=== PATIENT | female | born 1965 | race Caucasian/White ===

== ENCOUNTER → 2018-01-02 12:49 | Outpatient (POV) | payer BC, SELFPAY | PROVIDERS: Family Provider Internal Medicine Adolescent Medicine; PCP Family Medicine; Visit Provider Nurse Practitioner Acute Care | DX: Z00.00 Encounter for general adult medical examination without abnormal findings (principal) ==

== ENCOUNTER → 2018-09-01 14:38 | Outpatient (CLI) | payer BC, SELFPAY ==
[2018-09-01 14:47] LABS: Adenovirus F 40/41, stool Not Detected (NotDetected); Astrovirus Not Detected (NotDetected); Campylobacter Not Detected (NotDetected); Clostridium Difficile A/B, PCR Not Detected (NotDetected); Cryptosporidium Not Detected (NotDetected); Cyclospora Cayetanesis Not Detected (NotDetected); Entamoeba histolytica Not Detected (NotDetected); Enteroaggregative E coli Not Detected (NotDetected); Enteropathogenic E coli Not Detected (NotDetected); Enterotoxigenic E coli Not Detected (NotDetected); Giardia lamblia Not Detected (NotDetected); Norovirus Not Detected (NotDetected); Plesimonas Shigalloides, PCR Not Detected (NotDetected); Rotavirus A Not Detected (NotDetected); Salmonella, PCR Not Detected (NotDetected); Sapovirus Not Detected (NotDetected); Shiga-like toxin E coli Not Detected (NotDetected); Shigella Enterovasive E coli Not Detected (NotDetected); Vibrio Cholerae Not Detected (NotDetected); Vibrio, PCR Not Detected (NotDetected); Yersinia Entercolitica, PCR Not Detected (NotDetected)
== END ==
PROVIDERS: PCP Family Medicine; Visit Provider Nurse Practitioner Acute Care
DX: R19.7 Diarrhea, unspecified (principal)
CPT/HCPCS: 87507

== ENCOUNTER → 2019-07-12 13:39 | Outpatient (CLI) | payer BC, SELFPAY ==
[2019-07-12 15:26] VITALS: BMI 27.6
== END ==
PROVIDERS: PCP Family Medicine; Visit Provider Family Medicine
DX: Z71.3 Dietary counseling and surveillance (principal)
CPT/HCPCS: 97802

== ENCOUNTER 2022-02-12 19:47 | Emergency (ER) | payer BC, SELFPAY ==
[2022-02-12] VITALS (9 sets, daily range): BP systolic 135–182; BP diastolic 75–92; PULSE 82–97; RESP 17–20; TEMP 36.9; O2SAT 94–99; BMI 28.0
--- NOTE | 2022-02-12 19:45 | ECG_ITS ---
APPROVED REPORT Exam: Resting ECG HR:100 bpm ECG Measurements Heart Rate 100 AXES MN 136 P 69 QRSd 89 QRS 39 QT 337 T 34 QTc 394 Conclusion SINUS TACHYCARDIA NONSPECIFIC ST & T-WAVE ABNORMALITY ABNORMAL RHYTHM ECG UNCONFIRMED REPORT Electronically signed by : Gurjit Elizalde MD 02/13/2022 08:15:45
--- NOTE | 2022-02-12 19:52 | XR_ITS ---
PROCEDURE INFORMATION: Exam: XR Chest Exam date and time: 02/12/2022 7:56 PM Age: 56 years old Clinical indication: Sternal or substernal pain; Prior surgery; Surgery date: 6+ months; Surgery type: Cardiac stents; Additional info: Cp TECHNIQUE: Imaging protocol: XR of the chest. Views: 1 view. COMPARISON: ABDPELWO CT abdomen pelvis wo con 08/14/2018 3:48 AM FINDINGS: Lungs: Unremarkable. No consolidation. Pleural spaces: Unremarkable. No pleural effusion. No pneumothorax. Heart/Mediastinum: Unremarkable. No cardiomegaly. Bones/joints: Unremarkable. IMPRESSION: No acute findings.
[2022-02-12 20:02] LABS: Basophils # 0.1 K/mm3 (0-0.2); Eosinophils # 0.2 K/mm3 (0.0-0.4); Eosinophils % 2.9 % (0.1-12.0); Hematocrit 40.7 % (37.0-47.0); Hemoglobin 13.3 g/dL (12.2-16.2); Lymphocytes # 2.3 K/mm3 (0.7-4.5); Lymphocytes % 39.6 % (10-50); Mean Corpuscular HGB Conc 32.6 g/dL (31.8-35.4); Mean Corpuscular Hemoglobin 30.7 pg (27.0-31.2); Mean Corpuscular Volume 94.2 fl (81-99); Mean Platelet Volume 8.5 fl (7.4-10.4); Monocytes # 0.4 K/mm3 (0.1-1.0); Monocytes % 6.7 % (1.7-9.3); Neutrophils % 49.9 % (37.0-80.0); Platelet Count 189 K/mm3 (142-424); Red Blood Count 4.31 M/mm3 (4.20-5.40); Red Cell Distribution Width 13.6 % (11.5-17.5); White Blood Count 5.9 K/mm3 (4.8-10.8)
[2022-02-12 20:09] LABS: Alanine Aminotransferase 169 U/L (12-78); Albumin/Globulin Ratio 1.6 (1.1-1.8); Alkaline Phosphatase 92 U/L (38-126); Anion Gap 8.9 mEq/L (5-15); Aspartate Amino Transferase 96 U/L (14-36); Bilirubin,Total 0.4 mg/dl (0.2-1.3); Blood Urea Nitrogen 16 mg/dl (7-17); Calcium 8.4 mg/dl (8.4-10.2); Carbon Dioxide 26 mmol/L (22.0-30.0); Chloride 109 mmol/L (98-107); Creatinine Clearance Estimated 116 mL/min (50-200); Estimated Glomerular Filt Rate 103 ml/min (>60); GFR (African American) 124 ML/MIN (>60); Globulin 2.5 g/dL (1.3-3.2); Glucose 188 mg/dl (74-100); Potassium 3.9 mmoL/L (3.5-5.1); Sodium 140 mmol/L (136-145); Total Protein,Serum 6.5 g/dl (6.3-8.2)
[2022-02-12 20:15] LABS: C-Reactive Protein 0.9 mg/L (0-4)
[2022-02-12 20:25] LABS: Troponin I < 0.01 ng/ml (0.00-0.034)
[2022-02-12 20:29] LABS: Procalcitonin 0.055 ng/mL (0.0-2.0)
[2022-02-12 20:34] LABS: Erythrocyte Sedimentation Rate 14 mm/hr (0-30)
--- NOTE | 2022-02-12 21:02 | HMH.EDCP ---
ED Disposition Clinical Impression: Chest pain Qualifiers: Chest pain type: precordial pain Qualified Code(s): R07.2 - Precordial pain Disposition: Home, Self-Care Condition on Discharge: Good Instructions: DI for Chest Pain Additional Instructions: pt will need to see card and recheck if sx persist Prescriptions: Isosorbide Mononitrate [Imdur 30mg ER tablet] 30 mg PO DAILY #30 tab Transmission Status: Pending to [facility] Referrals: Leif Faulkner [Primary Care Provider] - - Critical Care Critical Care Time: No Attestation: On 02/12/22, the high probability of a clinically significant, sudden or life threatening deterioration of the following system(s) required my full and direct attention, intervention and personal management. The time I documented below is in addition to time spent performing reported procedures but includes the following listed in this critical care notation. Medical Decision Making - Medical Records Medical records reviewed: Yes: I reviewed the patient's medical records. - Neftaly Inquiry Pt receiving controlled substance: No Vital Signs: 02/12/22 19:47 02/12/22 20:00 02/12/22 20:30 Temperature 98.4 F Temperature Source Oral Pulse Rate 87 94 H Pulse Rate [Left Radial] 97 H Respiratory Rate 18 20 17 Blood Pressure 176/84 H 156/82 H Blood Pressure [Right Arm] 171/92 H Blood Pressure Mean 114 106 Blood Pressure Mean [Right Arm] 118 02 Sat by Pulse Oximetry 99 97 97 Oxygen Delivery Method Nasal Cannula Oxygen Flow Rate (LPM) 2 02/12/22 21:00 02/12/22 21:30 02/12/22 22:00 Temperature Temperature Source Pulse Rate 92 H 84 83 Pulse Rate [Left Radial] Respiratory Rate Blood Pressure 182/85 H 154/86 H 144/75 H Blood Pressure [Right Arm] Blood Pressure Mean 117 108 98 Blood Pressure Mean [Right Arm] 02 Sat by Pulse Oximetry 97 94 L 95 Oxygen Delivery Method Oxygen Flow Rate (LPM) 02/12/22 22:30 02/12/22 23:00 02/12/22 23:30 Temperature Temperature Source Pulse Rate 82 85 93 H Pulse Rate [Left Radial] Respiratory Rate Blood Pressure 136/79 135/76 138/78 Blood Pressure [Right Arm] Blood Pressure Mean 93 97 91 Blood Pressure Mean [Right Arm] 02 Sat by Pulse Oximetry 96 96 96 Oxygen Delivery Method Oxygen Flow Rate (LPM) - Lab Data Lab results reviewed: Yes: I reviewed the patient's lab results. Lab Results 02/12/22 19:45: WBC 5.9, RBC 4.31, Hgb 13.3, Hct 40.7, MCV 94.2, MCH 30.7, MCHC 32.6, RDW 13.6, Plt Count 189, MPV 8.5, Neut % (Auto) 49.9, Lymph % (Auto) 39.6, Walton % (Auto) 6.7, Eos % (Auto) 2.9, Baso % (Auto) 1.0, Neut # (Auto) 3.0, Lymph # (Auto) 2.3, Walton # (Auto) 0.4, Eos # (Auto) 0.2, Baso # (Auto) 0.1, ESR 14 02/12/22 19:45: Sodium 140, Potassium 3.9, Chloride 109 H, Carbon Dioxide 26, Anion Gap 8.9, BUN 16, Creatinine 0.60, Estimated Creat Clear 116, Estimated GFR 103, Est GFR ( Amer) 124, Glucose 188 H, Calcium 8.4, Total Bilirubin 0.4, AST 96 H, ALT 169 H, Alkaline Phosphatase 92, Troponin I < 0.01, C-Reactive Protein 0.9, Total Protein 6.5, Albumin 4.0, Globulin 2.5, Albumin/Globulin Ratio 1.6 02/12/22 19:45: Procalcitonin 0.055 02/12/22 19:45: TSH 0.36 L, Thyroxine (T4) 13.5 H 02/12/22 22:56: Troponin I 0.03 Result diagrams: 02/12/22 19:45 02/12/22 19:45 Orders (Tests/Meds): ED MEDICATIONS Discontinued Medications Generic Name Dose Route Start Last Admin Trade Name Freq PRN Reason Stop Dose Admin Aspirin 324 mg 02/12/22 19:59 02/12/22 20:03 Aspirin 81mg Chewable Tablet PO 02/12/22 20:00 324 mg ONCE ONE Administration Nitroglycerin 1 gm 02/12/22 20:00 02/12/22 20:03 Nitroglycerin 1 Gm Ointment TD 02/12/22 20:01 1 gm ONCE ONE Administration ORDERS Category Date Time Status Troponin I Q3H Lab 02/13/22 02:00 Ordered - Radiology Data #1 Image(s): Chest Image Reviewed: Yes I have reviewed radiologist's interpretat
[2022-02-12 21:04] LABS: T4 (Thyroxine) 13.5 ug/dl (5.53-11.0)
[2022-02-12 21:18] LABS: Thyroid Stimulating Hormone 0.36 uIU/mL (0.465-4.68)
[2022-02-12 23:33] LABS: Troponin I 0.03 ng/ml (0.00-0.034)
--- NOTE | 2022-02-13 00:26 | ECG_ITS ---
APPROVED REPORT Exam: Resting ECG HR:76 bpm ECG Measurements Heart Rate 76 AXES DE 164 P 69 QRSd 91 QRS 28 QT 371 T 20 QTc 401 Conclusion SINUS RHYTHM NORMAL ECG UNCONFIRMED REPORT Electronically signed by : Gurjit Elizalde MD 02/13/2022 08:15:10
[2022-02-13 00:51] VITALS: BP 148/84; PULSE 89; RESP 16; TEMP 36.9; O2SAT 97
== END 2022-02-13 01:03 | disposition home or self-care (01) ==
PROVIDERS: Emergency Provider Emergency Medicine; PCP Family Medicine
DX: R07.2 Precordial pain (principal); I25.10 Atherosclerotic heart disease of native coronary artery without angina pectoris; E11.9 Type 2 diabetes mellitus without complications; K21.9 Gastro-esophageal reflux disease without esophagitis; I10 Essential (primary) hypertension; E03.9 Hypothyroidism, unspecified; Z87.891 Personal history of nicotine dependence; Z79.899 Other long term (current) drug therapy
CPT/HCPCS: 36415; 71045; 80053; 84145; 84436; 84443; 84484; 85025; 85651; 86140; 93005; 99283

== ENCOUNTER → 2022-02-19 07:27 | Outpatient (CLI) | payer BC, SELFPAY ==
--- NOTE | 2022-02-19 | CA_ITS ---
APPROVED REPORT Exam: Exercise Treadmill Technologist: Carlene Gibson, Ht: 5 ft 3 in Wt: 159 lbs BSA: 1.75 m2 HR: 81 bpm BP: 157/79 mmHg Rhythm: NSR, SLIGHT INFERIOR ST SEGMENT ABNORMALITIES Medical History Medications: Isosorbide,,,,, Aspirin,,,,, Metoprolol Tartrate,,,,, Atorvastatin,,,,, Lansoprazole,,,,, DicyCLOMINE,,,,, Sitagliptin,,,,, MetoclopAMIDE,,,,, MonONITRATE,,,,, LisinI,,,,, Allergies: No known drug allergies Stress Test Details Test: Brennan, Exercise stress testing was performed using a Brennan protocol., Exercise stress testing was performed using a modified Brennan protocol. HR Resting HR: 92 bpm Max Heart Rate (APMHR): 162 bpm Max HR Achieved: 147 bpm Target HR (85% APMHR): 138 bpm % of APMHR: 91 Recovery HR: 99 bpm BP Resting BP: 156/82 mmHg Max BP: 180/70 mmHg Recovery BP: 178.0/77.0 mmHg ECG Resting ECG: NSR, SLIGHT INFERIOR ST SEGMENT ABNORMALITIES Clinical Reason for Termination: Dyspnea Exercise duration: 07:01 min Highest Stage Achieved: Exercise capacity: 10.1 METs Stress ECG Conclusion PT WALKED 7 MIN. 10.1 METS. PT HAD NO CP. 1.[address] HORIZONTIC SEGMENT DEPRESSION INFERIORLY/LATERALLY THAT RESOLVED SLOWLY IN RECOVERY. ABNORMAL EKG. MAX SQ=106. % OF JB=158. MAX BP= 180/70. TEST STOPPED DUE TO=SOA. Electronically signed by : Morteza Verma MD 02/19/2022 16:22:06
--- NOTE | 2022-02-19 07:27 | NM_ITS ---
APPROVED REPORT Exam: Nuclear Stress Test Indication: CAD, 5 STENTS, HTN, D.M., HYPERLIPIDEMIA, FM HX, ANGINA, C.P. Patient Location: Outpatient Stress Tech: Carlene Gibson OR Tech:Elina HendersonAPPLE RT (R)(N)(M) Ht: 5 ft 3 in Wt: 155 lbs Bra Size: 38CC HR: 81 bpm BP: 157/79 mmHg BSA: 1.74 m2 BMI: 27.4 History: CAD, 5 STENTS, HTN, D.M., HYPERLIPIDEMIA, FM HX, ANGINA, C.P Procedure: Patient exercised on Brennan protocol 7:01 minutes and sec, resting heart rate 81 bpm, resting blood pressure 157/79 mmHg, with exercise maximum heart rate achived was 142 bpm which is 106 % of the maximum predicted heart rate and blood pressure was 170/65 mmHg. Test was stopped due to FATIGUE. Patient denied any complaint of chest pain. Patient has good exercise capacity, achieved 10.1 METs of workload on treadmill, the blood pressure response to exercise was Adequate. Electrocardiogram Resting electrocardiogram shows sinus rhythm, with exercise there is less than 1.[address] segment depression noted from the baseline EKG. The EKG portion of the exercise Myoview is positive for ischemia. Cardiac Stress and Resting SPECT Images: Cardiac Stress and Resting SPECT images were obtained using technetium 99m Myoview 30.7 mCi stress and 11.00 mCi at rest. Gated SPECT for analysis of segmental wall motion and calculation of the ejection fraction also done. Cardiac stress and resting SPECT images show reversible ischemia involving the anterior apical wall, computer derived ejection fraction is 52% with no regional wall motion abnormality, right ventricle is normal size and contractility. Conclusion: 1. The EKG portion of the exercise Myoview is positive for ischemia, patient has good exercise capacity achieved 10.1 METs of workload on treadmill, the blood pressure response to exercise was adequate, there was no exercise-induced chest discomfort. 2. Scintigraphic evidence of reversible ischemia involving the anterior apical wall, computer derived ejection fraction is 52% with no regional wall motion abnormality, right ventricle is normal size and contractility. 3. Abnormal exercise Myoview study. Electronically signed by : Morteza Verma MD 02/19/2022 16:25:12
--- NOTE | 2022-02-19 10:49 | CA_ITS ---
APPROVED REPORT EXAM: Comprehensive 2D, Doppler, and color-flow Echocardiogram Meter Changes Records Clerk: Treva Pacheco RT(R) Ht: 5 ft 3 in Wt: 154lbs BSA: 1.73 BP: 187/86 mmHg Indications: CP, ex smoker, HTN, DM, SOB, hyperlipidemia, Abn EKG, pre op for shoulder surgery, CAD, GERD 2D Dimensions LVOT 1.97 cm (M/F) 1.5-2.5 LVEF (Malin's) 66.10 % F: 54 - 74 LV Volume 74.30 mL F: 46 - 106 LV Volume Index 42.94 mL/m2 F: 29 - 61 LA Volume 28.00 mL LA Volume Index 16.18 mL/m2 (M/F) 16-34 M-Mode Dimensions RVDd 2.32 cm (0.9-2.6) LA Diam 3.05 cm (1.9-4.0) LVDd 4.11 cm (3.5-5.7) Ao Diam 2.52 cm (2.0-3.7) LVDs 3.14 cm (3.5-5.7) IVSd 0.75 cm (0.6-1.1) PWd 0.68 cm (0.6-1.1) EF (Teich) 47.70% FS 23.60% EDV (Teich) 74.70 mL ESV (Teich) 39.10 mL LV Diastology E Decel Time 190.00 (160-240 msec) E/A Ratio 0.8 MED E' 9.40 (< 7 cm/sec) E'/MED E' Ratio 6.98 (>14) LAT E' 9.60 (<10 cm/sec) E/LAT E' Ratio 6.83 (>14) Mitral Valve MV E Max Grey. 66.00 (40-130 cm/s) MV A Velocity 88.00 (40-130 cm/s) E/A Ratio 0.75 MV Decel. Time 190.00 (160-240 ms) MV PHT 56.00 ms Left Ventricle Left atrium is mildly enlarged, left ventricle is normal size, mild concentric left ventricular hypertrophy, estimated ejection fraction 55% with no regional wall motion abnormality, Doppler evidence of impaired LV relaxation seen. Right Ventricle Right atrium and right ventricle are normal size and contractility. Aortic Valve Aortic valve is minimally thickened and fibrosed, there is no aortic stenosis or aortic insufficiency. Mitral Valve Mitral valve grossly normal, there is trace mitral regurgitation. Tricuspid Valve Tricuspid grossly normal, there is trace tricuspid regurgitation, tricuspid regurgitation jet velocity is inadequate for calculation of the right ventricular systolic pressure. Pulmonic Valve Pulmonic valve is poorly visualized. Great Vessels Aortic root is normal size. Inferior vena cava is poorly visualized. Pericardium No significant pericardial effusion. Conclusion 1. Mildly enlarged left atrium, normal left ventricular size, mild concentric left ventricular hypertrophy, estimated ejection fraction 55% with no regional wall motion abnormality. Doppler evidence of impaired LV relaxation seen. 2. Trace mitral and tricuspid regurgitation. 3. No significant pericardial effusion. 4. Inferior vena cava is poorly visualized. Electronically signed by : Morteza Verma MD 02/19/2022 17:07:30
== END ==
PROVIDERS: PCP Family Medicine; Visit Provider Nurse Practitioner Family
DX: Z01.810 Encounter for preprocedural cardiovascular examination (principal); R07.9 Chest pain, unspecified; I20.9 Angina pectoris, unspecified; I10 Essential (primary) hypertension; E78.5 Hyperlipidemia, unspecified; R94.31 Abnormal electrocardiogram [ECG] [EKG]; Z95.5 Presence of coronary angioplasty implant and graft
CPT/HCPCS: 78452; 93017; 93306; A9502

== ENCOUNTER → 2022-02-22 09:18 | Outpatient (CLI) | payer BC, SELFPAY | PROVIDERS: PCP Family Medicine; Visit Provider Internal Medicine | DX: Z01.810 Encounter for preprocedural cardiovascular examination (principal); Z11.52 Encounter for screening for COVID-19; I20.9 Angina pectoris, unspecified; I10 Essential (primary) hypertension; E78.5 Hyperlipidemia, unspecified; R94.30 Abnormal result of cardiovascular function study, unspecified; R94.31 Abnormal electrocardiogram [ECG] [EKG]; Z95.5 Presence of coronary angioplasty implant and graft | CPT/HCPCS: C9803; U0003; U0005 ==

== ENCOUNTER 2022-02-23 14:48 | Inpatient (IN) | payer BC, SELFPAY ==
[2022-02-23] VITALS (29 sets, daily range): BP systolic 108–200; BP diastolic 59–123; PULSE 67–92; RESP 16–21; TEMP 36.7–36.8; O2SAT 92–100; BMI 28.0; BMI 28.9
--- NOTE | 2022-02-23 | IR_ITS ---
APPROVED REPORT Patient Location: Outpatient Assembly Machine Feeder: APPLE Palmer RT (R) PROCEDURES Left heart catheterization Left ventriculogram Selective coronary angiogram Drug-eluting stent deployment to the ostial left main artery Angioplasty to the mid dominant circumflex artery INDICATION High risk abnormal Myoview, Coronary artery disease, Angina pectoris, Informed consent was obtained prior to the procedure. COMPLICATIONS None Estimated Blood Loss: Less than 10 mls TECHNIQUE One percent lidocaine used to anesthetize the right anterior aspect of the wrist. The right radial artery was accessed via the Seldinger technique. A 6 [place] sheath was placed in the right radial artery. 2.5 mg of verapamil, 800 mcg of nitroglycerin, 1mg Lidocaine and 5000 U Heparin were given through the arterial sheath. The papa catheter was also used to perform left heart catheterization, left ventriculogram and selective coronary angiogram. At the end the diagnostic angiogram I broke scrub and went out and discussed the case with the patient's . I believe based on patient's initial syntax score that stenting was a reasonable option however I also offered the patient bypass surgery. After his discussion with the patient's it was decided to proceed with stenting if I felt patient's anatomy was amenable. Because of this I reentered the room prescribed and started the procedure. Therapeutic heparin was administered giving a therapeutic ACT and a JL 3 guide catheter was placed in the left main artery followed by a Choice PT extra-support wire being placed on the circumflex artery. A 3.5 x 8 mm Xience stent was deployed in the ostial left main artery at 20 elsy reducing the stenosis and allowing deep seating of the guide catheter. Wire was placed into the circumflex artery however primary stenting could not make the tortuosity and then calcification in the distal left main artery and circumflex artery. The guide liner was introduced and still the guide liner would not make the bend. A 3 mm x 15 mm balloon was deployed in the mid circumflex artery and used as an anchor to advance the guide liner however the guide liner still would not make the tortuosity. Repeat angiography demonstrated LEONA-3 flow with patency of the left main artery and dominant circumflex artery. Additional wires were placed into the LAD however it was decided to abandon the procedure and refer patient for bypass surgery. Patient had not received any antiplatelet agents and had persistent LEONA-3 flow down all vessels. It was felt that the most appropriate revascularization modality at this point would be bypass surgery. The apparatus was removed the sheath was removed good hemostasis was achieved using TR banding patient was transferred the postop already in stable condition ANGIOGRAPHIC RESULTS The left main artery Had an ostial 70 to 80% stenosis with a distal calcified 60% stenosis The left anterior descending artery Has proximal 30% stenosis with a mid vessel stent which is widely patent with minimal in-stent restenosis. The proximal portion of the distal LAD then has a concentric 80 to 90% stenosis. A large first diagonal artery has a stent in the proximal segment which is widely patent with minimal in-stent restenosis. Distal to the stent is a concentric 60% stenosis The circumflex artery Is a large dominant vessel and has 40% stenosis in the proximal first obtuse marginal artery with a 90% concentric stenosis in the mid circumflex artery proximal to 3 obtuse marginal arteries. The right coronary artery Vestigial with an ostial 80% stenosis The ROBERTO ventriculogram reveals Normal slightly hyperdynamic at 70% The left arnold
[2022-02-23 12:02] LABS: CATHL Activated Clotting Time 373 SEC (74-125)
[2022-02-23 12:03] LABS: CATHL Activated Clotting Time > 400 SEC (74-125)
--- NOTE | 2022-02-23 13:11 | SUR.PHASEII ---
Spoke with Lillie from for transfer of patient. Stated she had given pt information to bed coordinator and will possible have a bed tonight or tomorrow. Patient and family updated on POC.
--- NOTE | 2022-02-23 13:12 | SUR.PHASEII ---
Nitro gtt increased to 20mcg per Dr ponce
--- NOTE | 2022-02-23 13:59 | SUR.PHASEII ---
Nitro gtt increased to 30mcg
[2022-02-23 14:09] LABS: INR 1.01 (0.9-1.1); Prothrombin Time 11.4 seconds (10.1-12.5)
[2022-02-23 14:14] LABS: Activated Partial Thrombo Time 178.2 seconds (22.8-30.6)
--- NOTE | 2022-02-23 14:58 | P.CONPHA_ITS ---
[facility] Pharmacy VTE Monitoring - Patient Demographics Admission date: 02/23/22 Report Date: 02/23/22 Time: 14:58 Allergies/Adverse Reactions: Patient Allergies No Known Allergies Allergy (Verified 02/22/22 08:39) Height: 1.6 m Weight: 71.668 kg - VTE Risk Labs: VTE Related Lab Results PT 11.4 seconds (10.1-12.5) 02/23/22 13:30 INR 1.01 (0.9-1.1) 02/23/22 13:30 APTT 178.2 seconds (22.8-30.6) H* 02/23/22 13:30 - Prophylaxis VTE Prophylaxis Ordered?: Yes Types of VTE Prophylaxis: TEDS Knee High, Pharmacological Location of Applied Device: Bilateral Lower Extremeties Pharmacologic Type: Heparin
[2022-02-23 15:22] LABS: Coronavirus 19, PCR Not Detected (NotDetected); Influenza A, PCR Not Detected (NotDetected); Influenza B, PCR Not Detected (NotDetected)
--- NOTE | 2022-02-23 15:38 | HMH.PNCARD ---
Subjective Date: 02/23/22 Time: 15:38 Principal diagnosis: CAD Interval history: 56-year-old white female was brought in for an outpatient left heart catheterization today due to abnormal stress test which was performed as a preop for shoulder surgery. The left heart cath revealed evidence of three-vessel disease for which CABG recommended. She was started on IV heparin and IV nitro and admitted waiting for transfer to . Hopefully this will happen tonight or tomorrow. ANGIOGRAPHIC RESULTS The left main artery Had an ostial 70 to 80% stenosis with a distal calcified 60% stenosis The left anterior descending artery Has proximal 30% stenosis with a mid vessel stent which is widely patent with minimal in-stent restenosis. The proximal portion of the distal LAD then has a concentric 80 to 90% stenosis. A large first diagonal artery has a stent in the proximal segment which is widely patent with minimal in-stent restenosis. Distal to the stent is a concentric 60% stenosis The circumflex artery Is a large dominant vessel and has 40% stenosis in the proximal first obtuse marginal artery with a 90% concentric stenosis in the mid circumflex artery proximal to 3 obtuse marginal arteries. The right coronary artery Vestigial with an ostial 80% stenosis The ROBERTO ventriculogram reveals Normal slightly hyperdynamic at 70% The left ventricular end-diastolic pressure 20 mmHg IMPRESSION Severe coronary artery disease as described above Successful revascularization of the ostial left main artery with persistent disease in the distal left main artery first diagonal artery, LAD, first obtuse marginal artery, and mid dominant circumflex artery Slightly hyperdynamic ejection fraction Mild elevated LVEDP PLAN 1. Patient be started on a heparin drip as well as the nitro drip for blood pressure control 2. Efforts are being made to transfer patient to [facility] for four-vessel bypass surgery. It appears the diagonal artery LAD first OM and terminal OM are good candidates for bypass surgery 3. LDL less than 55 to be achieved with high intensity statin 4. Aspirin 81 mg daily Electronically signed by : Esvin Goyal MD 02/23/2022 13:28:22 Exam Vital signs and Labs for Last 24 Hours: Pulse Resp BP Pulse Ox 77 18 117/61 95 02/23/22 15:00 02/23/22 15:00 02/23/22 15:00 02/23/22 15:00 Laboratory Results - last 24 hr 02/23/22 10:52: Activated Clotting Time > 400 H* 04/12/22 11:20: Activated Clotting Time 373 H* 02/23/22 13:30: PT 11.4, INR 1.01, APTT 178.2 H* I & O for Last 24 hours: Intake & Output 02/21/22 02/22/22 02/23/22 02/24/22 11:59 11:59 11:59 11:59 Weight 158 lb - *Routine Respiratory Exam Present: CTA bilaterally - *Routine Cardiovascular Exam Present: RRR Progress Note: A&P (1) Coronary artery disease Status: Chronic (2) Encounter for pre-operative cardiovascular clearance Status: Acute (3) HLD (hyperlipidemia) Status: Chronic (4) HTN (hypertension) Status: Chronic (5) History of coronary artery stent placement Status: Chronic Assessment and Plan for All Diagnoses:: 1. Admit to Dr. Maxwell service while awaiting transfer to the [facility] for CABG surgery. 2. IV heparin and IV nitroglycerin drips along with home medications including aspirin 81 mg, atorvastatin 80 mg daily, lisinopril and metoprolol.
--- NOTE | 2022-02-23 17:46 | HMH.HPDC ---
General - General Admission date:: 02/23/22 Discharge date: 02/23/22 *Admission Date: 02/23/22 *Chief complaint: Shortness of breath *History of present illness: 56-year-old white female was brought in for an outpatient left heart catheterization today due to abnormal stress test which was performed as a preop for shoulder surgery. The left heart cath revealed evidence of three-vessel disease for which CABG recommended. She was started on IV heparin and IV nitro and admitted waiting for transfer to (Per Gail JENKINS). [facility] History I have reviewed the patient's past medical history: Yes Medical History: Reports:: Coronary Artery Disease, Diabetes Mellitus Type 2, Gastroesophageal Reflux Disease(GERD), Hyperlipidemia, Hypertension, Kidney Stones Denies:: Cancer, Diabetes Mellitus Type 1, Internal Pacemaker, Lung Disease, MRSA, Seizures *Have you ever received a pneumonia vaccine?: No *Have you received a flu vaccine this season?: No Other Medical History: Reports: Hypothyroidism Other Surgeries: Yes: Coronary Stent. No: Pacemaker Amputation: No Fractures: No - *Social History Last grade of school completed: High school graduate Smoking Status: Former smoker Alcohol Intake: never *Occupational Status:: employed *Travel in the last 8 weeks: None Family Hx:: Other (NA) Review of Systems - Review of Systems Review of systems:: pertinent systems reviewed and negative unless documented below - Constitutional Denies body ache(s), Denies excessive sweating, Denies fatigue - Eyes Denies blurry vision, Denies double vision - ENT Denies abnormal hearing, Denies mouth lesions - *Cardiovascular Reports shortness of breath, Reports shortness of breath with activity, Denies chest pain, Denies chest pain at rest - *Respiratory Reports shortness of breath, Reports shortness of breath with activity, Denies chest congestion, Denies cough - *Gastrointestinal Denies abdominal pain, Denies coffee ground vomit - *Musculoskeletal Denies abnormal walking, Denies back pain, Denies muscle weakness - Integumentary/Breasts Denies bleeding lesions, Denies yellowing of the skin - *Neurologic Denies abnormal walking, Denies confusion, Denies dizziness - Psychiatric Denies lack of enjoyment, Denies anxiety - Endocrine Reports cold intolerance, Reports increased thirst - Hematologic/Lymphatic Denies easy bleeding, Denies enlarged lymph nodes - Allergic/Immunologic Denies throat swelling, Denies wheezing Exam Vital signs and Labs for Last 24 Hours: Temp Pulse Resp BP Pulse Ox 98.2 F 77 18 117/61 95 02/23/22 16:00 02/23/22 15:00 02/23/22 15:00 02/23/22 15:00 02/23/22 15:00 Laboratory Results - last 24 hr 02/23/22 10:52: Activated Clotting Time > 400 H* 02/23/22 11:20: Activated Clotting Time 373 H* 02/23/22 13:30: PT 11.4, INR 1.01, APTT 178.2 H* 02/23/22 15:15: SARS-CoV-2 (PCR) Not detected, Influenza A Untype (PCR) Not detected, Influenza Type B (PCR) Not detected I & O for Last 24 hours: Intake & Output 02/20/22 02/21/22 02/22/22 02/23/22 23:59 23:59 23:59 23:59 Weight 163 lb 4 oz - Constitutional no acute distress - *Routine HEENT Exam Head: Present: normocephalic Eye: Present: EOMI ENT: Present: mucous membranes moist - *Routine Neck Exam Present: supple, trachea midline. Absent: tracheal deviation - *Routine Respiratory Exam Present: CTA bilaterally. Absent: accessory muscle use - *Routine Cardiovascular Exam Present: RRR - *Routine Abdominal Exam Present: soft, normoactive bowel sounds. Absent: tenderness, firm - *Routine Rectal Exam Rectal:: deferred - *Routine Genitalia Exam Genitalia:: deferred - *Routine Extremities Exam Present: full ROM, pulses intact. Absent: cyanosis, clubbing, edema, calf tenderness - *Routine Skin Exam Present: intact, dry, warm. Absent: cyanosis, erythema - *Routine Neurological Exam Present: alert, oriented X3.
[2022-02-23 18:49] LABS: Activated Partial Thrombo Time 56.1 seconds (22.8-30.6); INR 0.97 (0.9-1.1)
--- NOTE | 2022-02-23 19:43 | PC.NURSE ---
Nightwatch consulted on last PTT. No changes to heparin gtt. Pharmacy will put order for PTT in 6HRs.
[2022-02-23 22:36] LABS: POC Glucose,Bedside 193 (70-110)
[2022-02-24] VITALS (21 sets, daily range): BP systolic 118–190; BP diastolic 59–107; PULSE 70–96; RESP 16–21; TEMP 36.7–36.8; O2SAT 94–99; BMI 27.8
[2022-02-24 01:02] LABS: Activated Partial Thrombo Time 54.4 seconds (22.8-30.6); INR 0.97 (0.9-1.1)
--- NOTE | 2022-02-24 01:46 | PC.NURSE ---
Nightwatch consulted over PTT. No changes at this time. New PTT in 6 hrs.
--- NOTE | 2022-02-24 03:51 | PC.NURSE ---
No acute changes. Pt has denied any discomfort to chest. BP has been stable. Nitro gtt titrated per protocol. It is currently on standby.(R) radial cath site with DSG in place. No hematoma. No drainage noted to dressing. Pt has been up to bathroom. Tolerated well. NSR on telemetry. No other concerns. Will continue to monitor. Nitro titration: 2105 - decreased from 35 mcg/min to 20 mcg/min 0030 - decreased to 10 mcg/min 0045 - placed on standby
[2022-02-24 06:51] LABS: POC Glucose,Bedside 109 (70-110)
[2022-02-24 07:24] LABS: Basophils % 0.4 % (0.1-2.0); Eosinophils # 0.1 K/mm3 (0.0-0.4); Eosinophils % 1.5 % (0.1-12.0); Hematocrit 40.2 % (37.0-47.0); Hemoglobin 13.2 g/dL (12.2-16.2); Lymphocytes % 31.1 % (10-50); Mean Corpuscular HGB Conc 32.8 g/dL (31.8-35.4); Mean Corpuscular Hemoglobin 30.6 pg (27.0-31.2); Mean Corpuscular Volume 93.4 fl (81-99); Mean Platelet Volume 8.6 fl (7.4-10.4); Monocytes # 0.7 K/mm3 (0.1-1.0); Monocytes % 6.9 % (1.7-9.3); Neutrophils # 5.7 K/mm3 (1.8-7.8); Neutrophils % 60.1 % (37.0-80.0); Platelet Count 224 K/mm3 (142-424); Red Cell Distribution Width 13.7 % (11.5-17.5); White Blood Count 9.5 K/mm3 (4.8-10.8)
[2022-02-24 07:25] LABS: Chloride 108 mmol/L (98-107); Sodium 140 mmol/L (136-145)
[2022-02-24 07:28] LABS: Blood Urea Nitrogen 9 mg/dl (7-17); Calcium 8.2 mg/dl (8.4-10.2); Carbon Dioxide 27 mmol/L (22.0-30.0); Creatinine Clearance Estimated 99 mL/min (50-200); Estimated Glomerular Filt Rate 86 ml/min (>60); GFR (African American) 104 ML/MIN (>60); Glucose 124 mg/dl (74-100)
--- NOTE | 2022-02-24 07:43 | P.CONPHA_ITS ---
[facility] Pharmacy Heparin Dosing - Demographic Data Admission date:: 02/23/22 Date: 02/24/22 Time: 07:43 Allergies/Adverse Reactions: Allergies Allergy/AdvReac Type Severity Reaction Status Date / Time No Known Allergies Allergy Verified 02/22/22 08:39 Height: 1.6 m Weight: 71.4 kg - Indication Medication therapy:: Heparin Patient Problems: Current Active Problems Diabetes mellitus type 2 in nonobese (Acute) History of coronary artery stent placement (Chronic) Encounter for pre-operative cardiovascular clearance (Acute) HLD (hyperlipidemia) (Chronic) HTN (hypertension) (Chronic) Coronary artery disease (Chronic) CVA?: No Bleeding problem?: No Kidney disease?: No ME?: No Desired PTT range:: Other (50-75) - Labs Anticoagulation Lab Results:: 02/24/22 06:56 Hgb 13.2 Hct 40.2 Plt Count 224 - Monitoring Dose Monitor 1 Date: 02/23/22 Time: 13:30 PTT Result:: 178.2 Infusion Rate:: 1,000 UNITS/HR Comment:: 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7 Infusion Rate:: DECREASE RATE TO 600 UNITS/HR Comment:: PATIENT TRANSFERRED AT 2200 - Core Measures Is INR > or = 2 at discharge?: No Most Recent Labs:: Laboratory Results - last 24 hr 02/23/22 10:52: Activated Clotting Time > 400 H* 02/23/22 11:20: Activated Clotting Time 373 H* 02/23/22 13:30: PT 11.4, INR 1.01, APTT 178.2 H* 02/23/22 15:15: SARS-CoV-2 (PCR) Not detected, Influenza A Untype (PCR) Not detected, Influenza Type B (PCR) Not detected 02/23/22 18:27: PT 11.0, INR 0.97, APTT 56.1 H 02/23/22 21:02: POC Glucose 193 H 02/24/22 00:44: PT 11.0, INR 0.97, APTT 54.4 H 02/24/22 06:14: POC Glucose 109 02/24/22 06:56: WBC 9.5, RBC 4.30, Hgb 13.2, Hct 40.2, MCV 93.4, MCH 30.6, MCHC 32.8, RDW 13.7, Plt Count 224, MPV 8.6, Neut % (Auto) 60.1, Lymph % (Auto) 31.1, [place] % (Auto) 6.9, Eos % (Auto) 1.5, Baso % (Auto) 0.4, Neut # (Auto) 5.7, Lymph # (Auto) 3.0, [place] # (Auto) 0.7, Eos # (Auto) 0.1, Baso # (Auto) 0.0 02/24/22 06:56: Sodium 140, Potassium 4.0, Chloride 108 H, Carbon Dioxide 27, Anion Gap 9.0, BUN 9, Creatinine 0.70, Estimated Creat Clear 99, Estimated GFR 86, Est GFR ( Amer) 104, Glucose 124 H, Calcium 8.2 L Were Heparin and Warfarin started on the same day?: No If not, why?: PATIENT TRANSFERRED
[2022-02-24 07:48] LABS: PTT Heparin (inpatient only) 96.6 Seconds (23.6-34.0)
--- NOTE | 2022-02-24 09:13 | HMH.PHAINT ---
Home medication list was verified using the P[employer] claim history, med-red from recent visit with one of our providers, and information provided by the patient.
[2022-02-24 09:41] LABS: PTT Heparin (inpatient only) 87.1 Seconds (23.6-34.0)
--- NOTE | 2022-02-24 09:51 | PC.NURSE ---
0748 critical PTT 96.6. called pharmacy 0748 decrease heparin to 800 units. repeat labs ordered by pharmacy. 0941 received critical lab of PTT 87.1. called pharmacy 0942, decrease heparin to 700 units. draw repeat labs in 4 hrs
--- NOTE | 2022-02-24 10:15 | P.PN_ITS ---
Subjective Date: 02/24/22 Time: 10:15 Principal diagnosis: CAD Interval history: 56-year-old white female admitted after outpatient cardiac cath yesterday due to need for CABG. She has three-vessel disease. The cardiac cath was done in preparation for shoulder surgery which will now be postponed. Patient has had no chest pain overnight. She continues on IV nitroglycerin and heparin. Exam Vital signs and Labs for Last 24 Hours: Temp Pulse Resp BP Pulse Ox 98.3 F 85 16 137/72 94 L 02/24/22 04:00 02/24/22 06:00 02/24/22 06:00 02/24/22 06:00 02/24/22 06:00 Laboratory Results - last 24 hr 02/23/22 10:52: Activated Clotting Time > 400 H* 02/23/22 11:20: Activated Clotting Time 373 H* 02/23/22 13:30: PT 11.4, INR 1.01, APTT 178.2 H* 02/23/22 15:15: SARS-CoV-2 (PCR) Not detected, Influenza A Untype (PCR) Not detected, Influenza Type B (PCR) Not detected 02/23/22 18:27: PT 11.0, INR 0.97, APTT 56.1 H 02/23/22 21:02: POC Glucose 193 H 02/24/22 00:44: PT 11.0, INR 0.97, APTT 54.4 H 02/24/22 06:14: POC Glucose 109 02/24/22 06:56: WBC 9.5, RBC 4.30, Hgb 13.2, Hct 40.2, MCV 93.4, MCH 30.6, MCHC 32.8, RDW 13.7, Plt Count 224, MPV 8.6, Neut % (Auto) 60.1, Lymph % (Auto) 31.1, [place] % (Auto) 6.9, Eos % (Auto) 1.5, Baso % (Auto) 0.4, Neut # (Auto) 5.7, Lymph # (Auto) 3.0, [place] # (Auto) 0.7, Eos # (Auto) 0.1, Baso # (Auto) 0.0 02/24/22 06:56: Sodium 140, Potassium 4.0, Chloride 108 H, Carbon Dioxide 27, Anion Gap 9.0, BUN 9, Creatinine 0.70, Estimated Creat Clear 99, Estimated GFR 86, Est GFR ( Amer) 104, Glucose 124 H, Calcium 8.2 L 02/24/22 06:56: APTT 96.6 H* 02/24/22 09:09: APTT 87.1 H* I & O for Last 24 hours: Intake & Output 02/21/22 02/22/22 02/23/22 02/24/22 11:59 11:59 11:59 11:59 Intake Total 603 / 603 Balance 603 / 603 Weight 158 lb 157 lb 4.8 oz - Constitutional no acute distress - *Routine Respiratory Exam Present: CTA bilaterally - *Routine Cardiovascular Exam Present: RRR - *Routine Neurological Exam Present: alert, oriented X3 Progress Note: A&P (1) Coronary artery disease Status: Chronic (2) Encounter for pre-operative cardiovascular clearance Status: Acute (3) HLD (hyperlipidemia) Status: Chronic (4) HTN (hypertension) Status: Chronic (5) History of coronary artery stent placement Status: Chronic (6) Diabetes mellitus type 2 in nonobese Status: Acute Assessment and Plan for All Diagnoses:: Awaiting transfer to for CABG.
--- NOTE | 2022-02-24 10:37 | HMH.ACPN2 ---
Internal Medicine - PN: Tammie *Date: 02/24/22 *Time: 08:00 Interval history: pt states she is doing well Exam Vital signs and Labs for Last 24 Hours: Temp Pulse Resp BP Pulse Ox 98.3 F 85 16 137/72 94 L 02/24/22 04:00 02/24/22 06:00 02/24/22 06:00 02/24/22 06:00 02/24/22 06:00 Laboratory Results - last 24 hr 02/23/22 10:52: Activated Clotting Time > 400 H* 02/23/22 11:20: Activated Clotting Time 373 H* 02/23/22 13:30: PT 11.4, INR 1.01, APTT 178.2 H* 02/23/22 15:15: SARS-CoV-2 (PCR) Not detected, Influenza A Untype (PCR) Not detected, Influenza Type B (PCR) Not detected 02/23/22 18:27: PT 11.0, INR 0.97, APTT 56.1 H 02/23/22 21:02: POC Glucose 193 H 02/24/22 00:44: PT 11.0, INR 0.97, APTT 54.4 H 02/24/22 06:14: POC Glucose 109 02/24/22 06:56: WBC 9.5, RBC 4.30, Hgb 13.2, Hct 40.2, MCV 93.4, MCH 30.6, MCHC 32.8, RDW 13.7, Plt Count 224, MPV 8.6, Neut % (Auto) 60.1, Lymph % (Auto) 31.1, [place] % (Auto) 6.9, Eos % (Auto) 1.5, Baso % (Auto) 0.4, Neut # (Auto) 5.7, Lymph # (Auto) 3.0, [place] # (Auto) 0.7, Eos # (Auto) 0.1, Baso # (Auto) 0.0 02/24/22 06:56: Sodium 140, Potassium 4.0, Chloride 108 H, Carbon Dioxide 27, Anion Gap 9.0, BUN 9, Creatinine 0.70, Estimated Creat Clear 99, Estimated GFR 86, Est GFR ( Amer) 104, Glucose 124 H, Calcium 8.2 L 02/24/22 06:56: APTT 96.6 H* 02/24/22 09:09: APTT 87.1 H* I & O for Last 24 hours: Intake & Output 02/21/22 02/22/22 02/23/22 02/24/22 11:59 11:59 11:59 11:59 Intake Total 603 / 603 Balance 603 / 603 Weight 158 lb 157 lb 4.8 oz - *Routine HEENT Exam Head: Present: normocephalic Eye: Present: PERRL ENT: Present: mucous membranes moist - *Routine Neck Exam Present: supple. Absent: lymphadenopathy - *Routine Respiratory Exam Present: CTA bilaterally - *Routine Cardiovascular Exam Present: RRR - *Routine Abdominal Exam Present: soft, normoactive bowel sounds. Absent: tenderness - *Routine Extremities Exam Absent: cyanosis, clubbing, edema - *Routine Skin Exam Present: warm. Absent: rash - *Routine Neurological Exam Present: alert, oriented X3 Assessment and Plan (1) Coronary artery disease Status: Chronic Qualifiers: Coronary Disease-Associated Artery/Lesion type: [place] artery [place] vs. transplanted heart: [place] heart Associated angina: without angina Qualified Code(s): I25.10 - Atherosclerotic heart disease of [place] coronary artery without angina pectoris Category: Medical Code(s): I25.10 - Atherosclerotic heart disease of [place] coronary artery without angina pectoris (2) Encounter for pre-operative cardiovascular clearance Status: Acute Category: Medical Code(s): Z01.810 - Encounter for preprocedural cardiovascular examination (3) HLD (hyperlipidemia) Status: Chronic Qualifiers: Hyperlipidemia type: mixed hyperlipidemia Qualified Code(s): E78.2 - Mixed hyperlipidemia Category: Medical Code(s): E78.5 - Hyperlipidemia, unspecified (4) HTN (hypertension) Status: Chronic Qualifiers: Hypertension type: primary hypertension Qualified Code(s): I10 - Essential (primary) hypertension Category: Medical Code(s): I10 - Essential (primary) hypertension (5) History of coronary artery stent placement Status: Chronic Category: Surgical Code(s): Z95.5 - Presence of coronary angioplasty implant and graft (6) Diabetes mellitus type 2 in nonobese Status: Acute Category: Medical Code(s): E11.9 - Type 2 diabetes mellitus without complications - Assessment and plan all Dx Assessment and Plan for all problems:: rounded with dr vivas all orders per dr vivas waiting on bed to transfer to [place] for 4 vessel bypass
--- NOTE | 2022-02-24 13:50 | PC.NURSE ---
called and spoke with galen danielle at 1336. pt requests a meal at this time, pt still does not have a bed available at . per ran, ok to give cardiac and diabetic diet. at this time.
[2022-02-24 14:59] LABS: PTT Heparin (inpatient only) 30.3 Seconds (23.6-34.0)
[2022-02-24 21:43] LABS: PTT Heparin (inpatient only) 105.7 Seconds (23.6-34.0)
--- NOTE | 2022-02-24 21:46 | PC.NURSE ---
notified night watch of pt's aPTT of 105.5, instructed to stop drip for one hour and then resume at 2246 at rate of 600units/hr; stopped drip; notified RN at accepting pt that pt will not be on heparin drip upon arrival due to this
--- NOTE | 2022-02-24 22:09 | PC.NURSE ---
pt being transferred via ambulance to [facility], pt's signed transfer form
--- NOTE | 2022-02-24 22:15 | PC.NURSE ---
PT WAS TRANSFERRED VIA STRETCHER PER [facility] @ [id number]
--- NOTE | 2022-02-24 22:54 | PC.NURSE ---
2029-pt's bp 170/106, increased nitro drip to 30mcg/min 2044-bp 190/107, increased nitro drip to 50mcg/min 2099-bp 161/96 2199-bp 160/100 prior to being transferred, pt on 30mcg/min upon leaving unit updated ems personnel
== END 2022-02-24 22:12 | disposition short-term general hospital (02) | DRG 247 ==
LOC: 2ND 14:49
PROVIDERS: Admitting Provider Internal Medicine; PCP Family Medicine; Visit Provider Emergency Medicine
PROC: 027034Z Dilation of Coronary Artery, One Artery with Drug-eluting Intraluminal Device, Percutaneous Approach (ICD-10-PCS; principal; 2022-02-23 07:45)
DX: I25.10 Atherosclerotic heart disease of native coronary artery without angina pectoris (principal); T82.855A Stenosis of coronary artery stent, initial encounter; E11.9 Type 2 diabetes mellitus without complications; K21.9 Gastro-esophageal reflux disease without esophagitis; E78.5 Hyperlipidemia, unspecified; E03.9 Hypothyroidism, unspecified; Z95.5 Presence of coronary angioplasty implant and graft; Z87.891 Personal history of nicotine dependence; Y83.1 Surgical operation with implant of artificial internal device as the cause of abnormal reaction of the patient, or of later complication, without mention of misadventure at the time of the procedure; Z20.822 Contact with and (suspected) exposure to COVID-19
CPT/HCPCS: 36415; 80048; 82962; 85025; 85347; 85610; 85730; 92920; 92928; 93458; 99152; 99153; C1725; C1769; C1876; C9600; C9803; J1644; Q9967; U0003; U0005

== ENCOUNTER → 2022-04-07 12:41 | Outpatient (CLI) | payer BC, SELFPAY ==
--- NOTE | 2022-04-07 | CA_ITS ---
APPROVED REPORT EXAM: Comprehensive 2D, Doppler, and color-flow Echocardiogram It Operations Analyst: Treva Pacheco RT(R) Ht: 5 ft 2 in Wt: 147lbs BSA: 1.68 BP: 105/62 mmHg Indications: CAD, HTN, DM, hyperlipidemia, hx CABG 02/26/22. 2D Dimensions LVOT 1.97 cm (M/F) 1.5-2.5 LA Volume 28.70 mL LA Volume Index 17.18 mL/m2 (M/F) 16-34 M-Mode Dimensions RVDd 2.15 cm (0.9-2.6) LA Diam 3.34 cm (1.9-4.0) LVDd 4.90 cm (3.5-5.7) Ao Diam 2.19 cm (2.0-3.7) LVDs 4.08 cm (3.5-5.7) IVSd 0.86 cm (0.6-1.1) PWd 0.68 cm (0.6-1.1) EF (Teich) 34.90% FS 16.70% EDV (Teich) 112.80 mL ESV (Teich) 73.40 mL LV Diastology E Decel Time 173.00 (160-240 msec) E/A Ratio 1.1 MED E' 6.30 (< 7 cm/sec) E'/MED E' Ratio 13.08 (>14) LAT E' 12.20 (<10 cm/sec) E/LAT E' Ratio 6.75 (>14) Mitral Valve MV E Max Grey. 82.00 (40-130 cm/s) MV A Velocity 77.00 (40-130 cm/s) E/A Ratio 1.07 MV Decel. Time 173.00 (160-240 ms) MV PHT 51.00 ms Left Ventricle Left atrium is mildly enlarged, left ventricle is normal size, mild concentric left ventricular hypertrophy, estimated ejection fraction 50%, there is marked hypokinesis involving the basal septum and inferior basal wall. Grade 1 diastolic dysfunction seen without tissue Doppler evidence of left atrial pressure. Right Ventricle Right atrium and right ventricle are normal size and contractility. Aortic Valve Aortic valve is grossly normal, there is no aortic stenosis or aortic insufficiency. Mitral Valve Mitral valve grossly normal, there is trace mitral regurgitation. Tricuspid Valve Tricuspid valve grossly normal, there is trace tricuspid regurgitation, tricuspid regurgitation jet velocity is inadequate for calculation of the right ventricular systolic pressure. Pulmonic Valve Pulmonic valve is poorly visualized. Great Vessels Aortic root is normal size. Inferior vena cava is poorly visualized. Pericardium No significant pericardial effusion noted. Conclusion 1. Mildly enlarged left atrium, normal left ventricular size, mild concentric left ventricular hypertrophy, estimated ejection fraction 50% with segmental wall motion abnormalities described above, grade 1 diastolic dysfunction seen without tissue Doppler evidence of left atrial pressure. 2. Trace mitral and tricuspid regurgitation. 3. No significant pericardial effusion. 4. Inferior vena cava is poorly visualized. Electronically signed by : Morteza Verma MD 04/08/2022 05:55:15
== END ==
PROVIDERS: PCP Family Medicine; Visit Provider Nurse Practitioner Family
DX: I25.10 Atherosclerotic heart disease of native coronary artery without angina pectoris (principal)
CPT/HCPCS: 93306

== ENCOUNTER → 2022-04-13 15:14 | Outpatient (CLI) | payer BC, SELFPAY ==
--- NOTE | 2022-04-13 15:18 | CA_ITS ---
FINAL REPORT TECHNIQUE: Color Doppler, duplex Doppler and compression sonography of the right lower extremity venous system was performed. CLINICAL HISTORY: c/o numbness in right leg 6 weeks post Rt GSV harvesting for CABG x 3 FINDINGS: There is no evidence of deep venous thrombosis from the level of the groin to the calf. The veins are patent and compressible. IMPRESSION: No evidence of deep venous thrombosis right lower extremity. Reviewed, Interpreted and Dictated by Pro Sorto III, MD Transcribed by Dot Leavitt Authenticated by Pro Sorto III, MD on 04/13/2022 04:23:05 PM [facility]
== END ==
PROVIDERS: PCP Family Medicine; Visit Provider Internal Medicine Pulmonary Disease
DX: M79.661 Pain in right lower leg (principal); R60.0 Localized edema; I25.10 Atherosclerotic heart disease of native coronary artery without angina pectoris; I10 Essential (primary) hypertension; E11.9 Type 2 diabetes mellitus without complications; E78.2 Mixed hyperlipidemia; R94.31 Abnormal electrocardiogram [ECG] [EKG]; Z95.1 Presence of aortocoronary bypass graft; Z95.5 Presence of coronary angioplasty implant and graft; Z79.84 Long term (current) use of oral hypoglycemic drugs
CPT/HCPCS: 93971

== ENCOUNTER → 2022-09-03 10:27 | Outpatient (CLI) | payer BC, SELFPAY ==
--- NOTE | 2022-09-03 10:32 | CA_ITS ---
FINAL REPORT CLINICAL HISTORY: HTN,HLD,EX SMOKER,CAD,HX KIDNEY STONES FINDINGS: Aorta velocity: 102 cm/sec Right kidney: 10 cm. No evidence of hydronephrosis or mass. Right intrarenal RI: 0.62 Right renal artery velocity: 144 cm/sec. Right RAR (Renal artery-Aortic Ratio): 1.64 Left Kidney: 10 cm. No evidence of hydronephrosis or mass. Left intrarenal RI: 0.59 Left renal artery velocity: 63 cm/sec. Left RAR (Renal Artery-Aortic Ratio): 1.48 IMPRESSION: No significant stenosis of the renal arteries. Reviewed, Interpreted and Dictated by Pro Sorto III, MD Transcribed by Judy Lucero Authenticated and . [facility]
== END ==
PROVIDERS: PCP Family Medicine; Visit Provider Physician Assistant
DX: I25.10 Atherosclerotic heart disease of native coronary artery without angina pectoris (principal); I10 Essential (primary) hypertension; E78.2 Mixed hyperlipidemia; R94.31 Abnormal electrocardiogram [ECG] [EKG]; Z95.1 Presence of aortocoronary bypass graft; Z95.5 Presence of coronary angioplasty implant and graft
CPT/HCPCS: 93976

== ENCOUNTER → 2022-09-10 13:22 | Outpatient (CLI) | payer BC, SELFPAY ==
--- NOTE | 2022-09-10 13:22 | US_ITS ---
FINAL REPORT TECHNIQUE: Ultrasound images of the kidneys and bladder were obtained. CLINICAL HISTORY: I25.10 - Atherosclerotic heart disease of [place] coronary.., HTN FINDINGS: The right kidney measures 9.2 cm in length. It is normal in echogenicity. There is no hydronephrosis. The left kidney measures 10.2 cm in length. It is normal in echogenicity. There is no hydronephrosis. The spleen is within normal limits. IMPRESSION: Unremarkable exam. Reviewed, Interpreted and Dictated by Pro Sorto III, MD Transcribed by Cristina Calix Authenticated and [facility]
== END ==
PROVIDERS: PCP Family Medicine; Visit Provider Physician Assistant
DX: I25.10 Atherosclerotic heart disease of native coronary artery without angina pectoris (principal); I10 Essential (primary) hypertension; E78.2 Mixed hyperlipidemia; R94.31 Abnormal electrocardiogram [ECG] [EKG]; Z95.1 Presence of aortocoronary bypass graft; Z95.5 Presence of coronary angioplasty implant and graft
CPT/HCPCS: 76770

== ENCOUNTER → 2022-09-13 12:01 | Outpatient (CLI) | payer BC, SELFPAY ==
[2022-09-13 13:10] LABS: Anion Gap 15.3 mEq/L (5-15); Blood Urea Nitrogen 20 mg/dl (7-17); Calcium 9.1 mg/dl (8.4-10.2); Carbon Dioxide 25 mmol/L (22.0-30.0); Chloride 106 mmol/L (98-107); Estimated Glomerular Filt Rate 86 ml/min (>60); GFR (African American) 104 ML/MIN (>60); Glucose 137 mg/dl (74-100); Potassium 4.3 mmoL/L (3.5-5.1); Sodium 142 mmol/L (136-145)
== END ==
PROVIDERS: PCP Family Medicine; Visit Provider Physician Assistant
DX: E78.2 Mixed hyperlipidemia (principal); I10 Essential (primary) hypertension
CPT/HCPCS: 36415; 80048

== ENCOUNTER → 2022-09-22 09:39 | Outpatient (CLI) | payer BC, SELFPAY | PROVIDERS: PCP Family Medicine; Visit Provider Internal Medicine | DX: Z01.812 Encounter for preprocedural laboratory examination (principal); I25.10 Atherosclerotic heart disease of native coronary artery without angina pectoris ==

== ENCOUNTER → 2022-09-24 13:01 | Outpatient (CLI) | payer BC, SELFPAY ==
--- NOTE | 2022-09-24 13:01 | CT_ITS ---
FINAL REPORT TECHNIQUE: Pre-and postcontrast images of the abdomen were performed by computed tomography. Extensive 3-D reconstruction images were performed. A CTA was performed. This study was performed with techniques to keep radiation doses as low as reasonably achievable (ALARA). Individualized dose reduction techniques using automated exposure control or adjustment of mA and/or kV according to the patient''s size were employed. CLINICAL HISTORY: flucuating bp/htn FINDINGS: ABDOMEN: The lung bases are clear. The liver parenchyma is homogeneous. There is a small hypervascular focus in the mid right lobe of the liver measuring 8 mm in diameter, may be due to a small hemangioma. Finding is well seen on image 22 of series 3. The gallbladder is absent. The spleen, pancreas, adrenals, and kidneys are unremarkable. CTA: There are single renal arteries bilaterally. There is no significant stenosis. The celiac axis and SMA are widely patent. There is dense calcification at the origin of the JUDY but it is adequately patent. IMPRESSION: No evidence of renal vascular hypertension or significant renal artery stenosis. Reviewed, Interpreted and Dictated by Lawson Hilton MD Transcribed by Cristina Calix Authenticated and [facility]
== END ==
PROVIDERS: PCP Family Medicine; Visit Provider Physician Assistant
DX: I25.10 Atherosclerotic heart disease of native coronary artery without angina pectoris (principal); I10 Essential (primary) hypertension; I99.8 Other disorder of circulatory system
CPT/HCPCS: 74175; Q9967

== ENCOUNTER → 2022-12-24 09:16 | Outpatient (CLI) | payer BC, SELFPAY ==
--- NOTE | 2022-12-24 09:19 | XR_ITS ---
FINAL REPORT TECHNIQUE: Bone densitometry calculations of the lumbar spine and left hip were obtained. CLINICAL HISTORY: . post menopausal screening prior 2014 FINDINGS: DEXA BONE DENSITY AXIAL SKELETON Using L1-4, the bone mineral density of the spine is 1.034 g/cm2, corresponding to T-score of -1.0. Using the right hip, the bone mineral density of the femoral neck is 0.780 g/cm2, corresponding to a T-score of -0.6. Using the left hip, the bone mineral density of the femoral neck is 0.761 g/cm2, corresponding to a T-score of -0.8. NOTE: T-score: Standard deviation compared with peak bone mass of young adult mean. *Following the recommendations of the International Society of Bone Densitometry, classification of hip BMD is based on the lower of two T-scores; total hip or femoral neck. IMPRESSION: Normal bone mineralization of the lumbar spine and hips. Reviewed, Interpreted and Dictated by Lawson Hilton MD Transcribed by Dot Leavitt Authenticated and [facility]
== END ==
PROVIDERS: PCP Family Medicine; Visit Provider Registered Nurse
DX: Z78.0 Asymptomatic menopausal state (principal)
CPT/HCPCS: 77080

== ENCOUNTER → 2023-01-08 13:21 | Outpatient (CLI) | payer BC, SELFPAY | PROVIDERS: PCP Family Medicine; Visit Provider Family Medicine | DX: G47.33 Obstructive sleep apnea (adult) (pediatric) (principal); R06.83 Snoring | CPT/HCPCS: G0399 ==

== ENCOUNTER 2023-08-28 13:03 | Emergency (ER) | payer BC, SELFPAY ==
[2023-08-28 13:30] VITALS: BP 171/90; PULSE 79; RESP 19; TEMP 36.8; O2SAT 98; BMI 27.8
--- NOTE | 2023-08-28 13:50 | EXP.UTC ---
Discharge Plan Disposition Patient Disposition: Home, Self-Care Condition: Good Prescriptions Prescriptions: New amoxicillin-pot clavulanate 875-125 mg Tablet 1 tab PO Q12H 7 Days Qty: 14 0RF Culturelle 10 billion cell capsule 1 cap PO DAILY 10 Days Qty: 10 0RF No Action levothyroxine [Synthroid] 112 mcg tablet 112 mcg PO DAILY Repatha Pushtronex 420 mg/3.5 mL wearable injector 420 mg SQ MONTHLY Patient Comments: INJECT 420 MG UNDER THE SKIN ONCE MONTHLY DIRECTED valsartan 160 mg tablet 320 mg PO DAILY Qty: 180 3RF citalopram 20 mg tablet 20 mg PO DAILY Qty: 90 3RF mupirocin 2 % ointment topical Patient Comments: APPLY 1 GRAM TOPICALLY ON THE SKIN TWICE DAILY ketoconazole 2 % cream topical Patient Comments: APPLY TOPICALLY TO THE LEFT LEG AND FOOT. DO NOT STOP UNTIL 2 WEEKS AFTER CLEAR diclofenac sodium 75 mg tablet,delayed release (DR/EC) 75 mg PO PRN (Reason: pain) Patient Comments: TAKE 1 TABLET BY MOUTH TWICE DAILY Ozempic 0.25 mg or 0.5 mg (2 mg/3 mL) pen injector 0.25 mg SQ WEEKLY atorvastatin 80 mg tablet 80 mg PO DAILY Qty: 90 3RF metoprolol succinate 50 mg tablet extended release 24 hr See Rx Instructions .ROUTE .COMPLEX Qty: 90 1RF Dose Instruction: TAKE 1 TABLET BY MOUTH DAILY Rx Instructions: TAKE 1 TABLET BY MOUTH DAILY clopidogrel 75 mg tablet 75 mg PO DAILY Qty: 90 3RF lansoprazole 30 MG capsule,delayed release(DR/EC) 30 mg PO DAILY Patient Comments: TAKE ONE CAPSULE EVERY DAY aspirin 81 MG tablet,chewable 81 mg PO DAILY dicyclomine 10 mg capsule 10 mg PO TID PRN (Reason: abd pain) Referrals Follow up/Referrals: Phong Molina MD [Physician] - See instructions Frank Hodges MD [Physician] - See instructions Leif Faulkner [Primary Care Provider] - See instructions Norma Bridges APRN [Nurse Practitioner] - See instructions Activity Restrictions/Add. Instructions Additional Instructions/Restrictions: Make sure to hydrate well and drink plenty of water Suck on sour candies like lemon drops Follow up with your Dentist, Call ENT and make appointment for further evaluation Return if needed Straight to ER if any life threatening symptoms Clinical Impressions Clinical Impression: Parotitis Instructions Patient Instructions: Parotitis, DI for Parotitis-Adult Discharge ED Provider: Nettie Pacheco [facility] General Stated complaint: knot on Rt side of cheek Mode of Arrival: Ambulatory Source of Information: Patient Limitations: No Limitations Time Seen by Provider: 08/28/23 13:50 Description of Symptoms (Recalled from Triage Doc. by RN): PATIENT C/O KNOT BY RIGHT EAR SINCE TUESDAY HEENT Symptoms (Recalled from RN notes): Yes Resp Symptoms (Recalled from RN notes): No Skin Symptoms (Recalled from RN notes): No MS Symptoms (Recalled from RN notes): No Functional Status (Recalled from RN notes): WNL History of Present Illness Provider Complaint: Patient states that she noticed a small swollen area in front of her right ear on her jaw area States that earlier she was eating at [employer] and it swelling up very big on the side of her face near her ear States that since then the swelling has gone down but she was worried about it so she came in to get checked Related Data Home Medications Medication Instructions Recorded Confirmed aspirin 81 mg chewable tablet 81 mg PO DAILY Heart Health 04/25/18 08/18/23 lansoprazole 30 mg capsule,delayed 30 mg PO DAILY Acid Reflux 04/25/18 08/18/23 release levothyroxine 112 mcg tablet 112 mcg PO DAILY 04/13/22 08/18/23 (Synthroid) dicyclomine 10 mg capsule 10 mg PO TID PRN abd pain 04/21/22 08/18/23 evolocumab 420 mg/3.5 mL 420 mg SQ MONTHLY 05/26/22 08/18/23 subcutaneous wearable injector (Repatha Pushtronex) diclofenac sodium 75 mg 75 mg PO PRN pain 02/02/23 08/18/23 tablet,delayed r
[2023-08-28 14:22] VITALS: BP 171/90; PULSE 79; RESP 19; TEMP 36.8; O2SAT 98
== END 2023-08-28 14:24 | disposition home or self-care (01) ==
PROVIDERS: Emergency Provider Nurse Practitioner; PCP Family Medicine
DX: K11.20 Sialoadenitis, unspecified (principal); Z87.891 Personal history of nicotine dependence; Z95.1 Presence of aortocoronary bypass graft
CPT/HCPCS: 99204; 99212; G0463

== ENCOUNTER → 2023-09-30 07:18 | Outpatient (CLI) | payer BC, SELFPAY ==
--- NOTE | 2023-09-30 07:19 | CT_ITS ---
FINAL REPORT CLINICAL HISTORY: Parotitis FINDINGS: The paranasal sinuses are well aerated. No air-fluid levels are identified. The ostiomeatal units are patent. No soft tissue inflammation is identified. There is mild hazy edema in the right parotid gland, slightly asymmetrically greater on the right than left. IMPRESSION: Probable right parotitis. Reviewed, Interpreted and Dictated by Lawson Hilton MD Transcribed by Cristina Calix Authenticated and . [facility]
== END ==
PROVIDERS: PCP Family Medicine; Visit Provider Nurse Practitioner
DX: K11.20 Sialoadenitis, unspecified (principal)
CPT/HCPCS: 70486

== ENCOUNTER 2024-05-04 11:21 | Outpatient (CLI) | payer BC, SELFPAY ==
--- NOTE | 2024-05-04 | CA_ITS ---
APPROVED REPORT Exam: Exercise Treadmill Technologist: Kimmy Cleveland, Ht: 5 ft 2 in Wt: 165 lbs BSA: 1.76 m2 HR: 66 bpm BP: 166/85 mmHg Rhythm: NSR Indications: CP Medical History Medications: Aspirin,,,,, Metoprolol,,,,, Synthroid,,,,, Atorvastatin,,,,, Lansoprazole,,,,, CloPIdogrel,,,,, Valsartan,,,,, Meclizine,,,,, AZelastine,,,,, Xyzal,,,,, Cardiac Risk Factors: HTN, Hyperlipidemia, Diabetes (non-insulin), Smoking Stress Test Details Test: Brennan HR Resting HR: 69 bpm Max Heart Rate (APMHR): 160 bpm Max HR Achieved: 169 bpm Target HR (85% APMHR): 136 bpm % of APMHR: 106 Recovery HR: 84 bpm HR response to stress: Normal HR response to stress BP Resting BP: 169.0/73.0 mmHg Max BP: 194.0/78.0 mmHg Recovery BP: 181.0/79.0 mmHg BP response to stress: Normal blood pressure response to stress. ECG Resting ECG: NSR Stress EC mm horizontal ST depression Arrhythmia: PVCs Recovery ECG: ST return to baseline, new T-wave changes noted Recovery Arrhythmia: PVCs Clinical Exercise duration: 09:16 min Highest Stage Achieved: Exercise capacity: 10.1 METs Overall Exercise Capacity for Age: Average Stress ECG Conclusion The patient was able to exercise for a total of 9 minutes, 16 seconds. She achieved a total of 10.1 METS. She has average exercise capacity compared to age and sex matched peers. She has normal HR and BP response to exercise. No CP noted. Ectopy: Occasional PVC ST changes: [address] depression and new T wave inversions Conclusion: Average exercise capacity. ECG changes suggestive of possible ischemia at peak stress. Myoview images are reported separately. Test Summary REST . . . . . . . Sitting REST . . . . . . . Standing REST 04:53 0.0 0.0 69 . 169/ 73 . . Stage 1 01:00 10.0 1.7 85 . . . . Stage 1 02:00 10.0 1.7 92 . . . . Stage 1 03:00 10.0 1.7 150 . 180/ 76 . . Stage 2 01:00 12.0 2.5 0 . . . . Stage 2 02:00 12.0 2.5 112 . . . . Stage 2 03:00 12.0 2.5 118 . 194/ 78 . . Stage 3 01:00 14.0 3.4 121 . . . . Stage 3 02:00 14.0 3.4 124 . . . . Stage 3 03:00 14.0 3.4 123 . . . . Stage 4 00:16 16.0 4.2 144 . . . Stop exercise at 09:16 RECOVERY 01:00 0.0 0.0 98 . . . . RECOVERY 02:00 0.0 0.0 75 . . . . RECOVERY 03:00 0.0 0.0 82 . 181/ 79 . . RECOVERY 04:00 0.0 0.0 79 . 181/ 76 . . RECOVERY 05:00 0.0 0.0 74 . 181/ 76 . . RECOVERY 06:00 0.0 0.0 70 . 169/ 67 . . RECOVERY 06:20 0.0 0.0 74 . 169/ 67 . . Electronically signed by : Susie Garibay MD 05/07/2024 12:06:20
--- NOTE | 2024-05-04 11:22 | NM_ITS ---
APPROVED REPORT Exam: Nuclear Stress Test Indication: CAD, 3 STENTS, CBG, HTN, DM, HYPERLIPIDEMIA, FM HX, ABN EKG Patient Location: Outpatient Stress Tech: Kimmy Cleveland [place] Tech:Elina Henderson, APPLE RT (R)(N)(M) Ht: 5 ft 3 in Wt: 159 lbs Bra Size: 38C HR: 66 bpm BP: 166/85 mmHg BSA: 1.75 m2 Rhythm: NSR TID: 1.26 BMI: 28.1 History: CAD, 3 STENTS, CBG, HTN, DM, HYPERLIPIDEMIA, FM HX, ABN EKG PT S/P SHOULDER SURGERY AND COULD NOT LAY ON STOMACH FOR PRONE IMAGES Procedure: Patient exercised on Brennan protocol 9:16 minutes and sec, resting heart rate 66 bpm, resting blood pressure 166/85 mmHg, with exercise maximum heart rate achived was 130 bpm which is 81 % of the maximum predicted heart rate and blood pressure was 194/78 mmHg. Test was stopped due to FATIGUE. Patient denied any complaint of chest pain. Patient has average exercise capacity, achieved 10.1 METs of workload on treadmill, the blood pressure response to exercise was normal. Cardiac Stress and Resting SPECT Images: Cardiac Stress and Resting SPECT images were obtained using technetium 99m Myoview 30.6 mCi stress and 9.81 mCi at rest. The patient could not lie on her abdomen. Therefore, prone stress imaging could not be performed. There is also significant GI radiotracer uptake overlapping with the inferior border of the LV wall. These may affect the diagnostic interpretation of the study findings. Resting and stress imaging in supine positions demonstrate a small sized, moderate, reversible perfusion defect in the basal lateral LV wall. There is also increased transient ischemic dilatation ratio (TID 1.26), suggestive of possible multivessel disease or balanced ischemia. Gated imaging demonstrates low-normal global LV systolic function. There is mild hypokinesis of the basal lateral LV wall. LVEF is calculated at 50%. Conclusion: Small sized, moderate, reversible perfusion defect in the basal lateral LV wall. Findings are suggestive of reversible ischemia. Increased transient ischemic dilatation ratio (TID 1.26), suggestive of possible multivessel disease or balanced ischemia. Gated imaging demonstrates low-normal global LV systolic function. There is mild hypokinesis of the basal lateral LV wall. LVEF is calculated at 50%. Electronically signed by : Susie Garibay MD 05/07/2024 12:08:46
[2024-05-04] MEDS: SODIUM CHLORIDE 0.9% 10ML SYR (RAD ONLY) 10 ML IV ×2 (14:03)
[2024-05-04] MEDS: ISOTOPE MYOVIEW (PER STUDY) 1 DOSE IV (14:03)
== END 2024-05-04 23:59 | disposition home or self-care (01) ==
LOC: RAD 11:22
PROVIDERS: PCP Family Medicine; Visit Provider Physician Assistant
DX: R07.89 Other chest pain (principal); I25.119 Atherosclerotic heart disease of native coronary artery with unspecified angina pectoris; Z87.891 Personal history of nicotine dependence
CPT/HCPCS: 78452; 93017; 93018; A9502

== ENCOUNTER 2024-06-07 08:27 | Day surgery (SDC) | payer BC, SELFPAY ==
[2024-06-07] VITALS (12 sets, daily range): BP systolic 132–183; BP diastolic 74–92; PULSE 73–84; RESP 12–19; TEMP 36.8; O2SAT 96–100; BMI 30.2
--- NOTE | 2024-06-07 07:06 | IR_ITS ---
APPROVED REPORT Patient Location: Outpatient Complaint Investigator: APPLE Palmer RT (R) PROCEDURES Left heart catheterization Left ventriculogram Selective coronary angiogram Left internal mammary angiography Selective engagement of the saphenous vein graft to the diagonal artery Selective engagement of saphenous vein graft to the circumflex artery Drug-eluting stent deployment to the left main artery extending into the proximal ID Informed consent was obtained prior to the procedure. COMPLICATIONS NONE Estimated Blood Loss: LESS THAN 10 ML TECHNIQUE One percent lidocaine used to anesthetize the right groin. The right femoral artery was accessed via the Seldinger technique and a 5 Vietnamese sheath was placed in the right femoral artery. A JL 4, JR4 catheter were used to perform left heart catheterization, left ventriculogram selective coronary angiography as well as selective engagement of the 2 vein grafts and the left internal mammary artery. At the end the diagnostic angiogram therapeutic heparin was administered giving a therapeutic ACT and the 5 Vietnamese sheath was exchanged for a 6 Vietnamese sheath. The JL 3.5 guide catheter was placed in left main artery followed by Choice PT extra-support wire down the LAD. A 3.5 x 38 mm [place] frontier stent was deployed at 20 elsy in the proximal left main artery extending into the proximal LAD. LEONA-3 flow was present before and after the procedure. Excellent angiographic results were obtained at the end of procedure the apparatus was removed the groin is reprepped closure change sheath was removed good hemostasis was achieved using Perclose device patient was transferred to the postop holding in stable condition ANGIOGRAPHIC RESULTS The left main artery Has moderate atheromatous plaque with a distal 40 to 50% stenosis The left anterior descending artery Has an ostial 60 to 70% stenosis followed by an additional 50% stenosis proximal to a proximal to mid LAD stent. Distal to the stent the mid LAD has an eccentric 40% stenosis with an additional mid vessel concentric 40% tandem stenoses. The LAD is large and wraps the apex The circumflex artery Is likely a dominant vessel and gives rise to a first obtuse marginal artery which has a long tubular 80 to 90% stenosis. Distal to the first obtuse marginal artery the circumflex artery has a 70 to 80% stenosis and is then occluded at mid segment. The right coronary artery Vestigial and patent The ROBERTO ventriculogram reveals Normal 60% The left ventricular end-diastolic pressure 15 mmHg BONILLA to LAD occluded Saphenous to first obtuse marginal artery patent Saphenous to distal obtuse marginal artery patent IMPRESSION Coronary disease as described above Successful stenting of the proximal left main artery extending into the proximal LAD severe disease reduced to 0% with 1 long contiguous drug-eluting stent Patent saphenous vein graft to the first obtuse marginal artery and terminal obtuse marginal artery Normal ejection fraction Normal to borderline LVEDP PLAN 1. Dual antiplatelet therapy 2. Cardiac rehabilitation 3. Avoidance of tobacco products 4. Risk factor modification 5. LDL less than 55 to be achieved high intensity statin Electronically signed by : Esvin Goyal MD 06/07/2024 11:17:28
[2024-06-07 08:57] LABS: Basophils # 0.1 K/mm3 (0-0.2); Eosinophils # 0.1 K/mm3 (0.0-0.4); Eosinophils % 2.2 % (0.1-12.0); Hematocrit 41.2 % (37.0-47.0); Hemoglobin 13.9 g/dL (12.2-16.2); Lymphocytes # 1.3 K/mm3 (0.7-4.5); Lymphocytes % 24.3 % (10-50); Mean Corpuscular HGB Conc 33.8 g/dL (31.8-35.4); Mean Corpuscular Hemoglobin 30.6 pg (27.0-31.2); Mean Corpuscular Volume 90.7 fl (81-99); Mean Platelet Volume 8.5 fl (7.4-10.4); Monocytes # 0.4 K/mm3 (0.1-1.0); Neutrophils # 3.5 K/mm3 (1.8-7.8); Neutrophils % 64.5 % (37.0-80.0); Platelet Count 203 K/mm3 (142-424); Red Blood Count 4.54 M/mm3 (4.20-5.40); Red Cell Distribution Width 14.3 % (11.5-17.5); White Blood Count 5.4 K/mm3 (4.8-10.8)
[2024-06-07 09:04] LABS: Chloride 110 mmol/L (98-107); Sodium 141 mmol/L (136-145)
[2024-06-07 09:07] LABS: Blood Urea Nitrogen 13 mg/dl (7-17); Creatinine Clearance Estimated 101 mL/min (50-200); Estimated Glomerular Filt Rate 85 ml/min (>60); GFR (African American) 103 ML/MIN (>60)
[2024-06-07 09:08] LABS: Calcium 8.9 mg/dl (8.4-10.2); Carbon Dioxide 27 mmol/L (22.0-30.0); Glucose 127 mg/dl (74-100)
[2024-06-07] MEDS: diphenhydrAMINE 50MG/ML VIAL 50 MG IV (10:29)
[2024-06-07] MEDS: LIDOCAINE 1% 10ML MDV 20 ML IJ (10:29)
[2024-06-07] MEDS: 0.9 % SODIUM CHLORIDE 500 ML 25 ML IV (10:29)
[2024-06-07] MEDS: HEPARIN 1,000 UNITS/500ML NS (CATH LAB) 3000 UNIT IV (10:29)
[2024-06-07] MEDS: MIDAZOLAM HCL 1MG/1ML 5ML VIAL 1 MG IV (10:33)
[2024-06-07] MEDS: FENTANYL 100MCG/2ML VIAL 50 MCG IV (10:34)
[2024-06-07] MEDS: HEPARIN 1,000 UNITS/ML 10ML VIAL (CATH LAB) 10000 UNIT IV (10:51)
--- NOTE | 2024-06-07 11:05 | SUR.PHASEII ---
Pt states she takes plavix and took it this morning
[2024-06-07] MEDS: IOPAMIDOL-370 (76%);100ML BOTTLE 110 ML IV (11:49)
[2024-06-07 14:25] LABS: CATHL Activated Clotting Time 317 SEC (74-125)
== END 2024-06-07 14:52 | disposition home or self-care (01) ==
PROVIDERS: PCP Family Medicine; Visit Provider Internal Medicine
DX: I25.118 Atherosclerotic heart disease of native coronary artery with other forms of angina pectoris (principal); Z79.899 Other long term (current) drug therapy; Z95.1 Presence of aortocoronary bypass graft; I10 Essential (primary) hypertension; Z95.5 Presence of coronary angioplasty implant and graft; E11.9 Type 2 diabetes mellitus without complications; E78.5 Hyperlipidemia, unspecified; R94.31 Abnormal electrocardiogram [ECG] [EKG]; I77.1 Stricture of artery
CPT/HCPCS: 80048; 85025; 85347; 92928; 93459; 99152; 99153; C1725; C1760; C1769; C1874; C1894; C9600; J1200; J1644; J2250; J3010; Q9967

== ENCOUNTER 2024-06-09 09:14 | Outpatient (CLI) | payer BC, SELFPAY ==
[2024-06-09 09:27] LABS: Basophils % 0.5 % (0.1-2.0); Eosinophils # 0.2 K/mm3 (0.0-0.4); Eosinophils % 3.2 % (0.1-12.0); Hematocrit 33.9 % (37.0-47.0); Hemoglobin 12.5 g/dL (12.2-16.2); Lymphocytes # 1.6 K/mm3 (0.7-4.5); Lymphocytes % 23.6 % (10-50); Mean Corpuscular Hemoglobin 34.1 pg (27.0-31.2); Mean Corpuscular Volume 92.3 fl (81-99); Mean Platelet Volume 8.4 fl (7.4-10.4); Monocytes # 0.5 K/mm3 (0.1-1.0); Monocytes % 7.8 % (1.7-9.3); Neutrophils # 4.4 K/mm3 (1.8-7.8); Neutrophils % 64.9 % (37.0-80.0); Platelet Count 205 K/mm3 (142-424); Red Blood Count 3.67 M/mm3 (4.20-5.40); Red Cell Distribution Width 14.6 % (11.5-17.5); White Blood Count 6.7 K/mm3 (4.8-10.8)
[2024-06-09 09:55] LABS: Chloride 109 mmol/L (98-107); Sodium 140 mmol/L (136-145)
[2024-06-09 09:56] LABS: Potassium 4.3 mmoL/L (3.5-5.1)
[2024-06-09 09:58] LABS: Blood Urea Nitrogen 12 mg/dl (7-17); Estimated Glomerular Filt Rate 85 ml/min (>60); GFR (African American) 103 ML/MIN (>60)
[2024-06-09 09:59] LABS: Anion Gap 8.3 mEq/L (5-15); Calcium 8.9 mg/dl (8.4-10.2); Carbon Dioxide 27 mmol/L (22.0-30.0); Glucose 115 mg/dl (74-100)
== END 2024-06-09 23:59 | disposition home or self-care (01) ==
LOC: LAB 09:15
PROVIDERS: PCP Family Medicine; Visit Provider Internal Medicine
DX: I25.10 Atherosclerotic heart disease of native coronary artery without angina pectoris (principal)
CPT/HCPCS: 36415; 80048; 85025

== ENCOUNTER 2024-06-14 13:24 | Observation (INO) | payer BC, SELFPAY ==
[2024-06-14] VITALS (8 sets, daily range): BP systolic 129–162; BP diastolic 68–87; PULSE 80–90; RESP 16–20; TEMP 36.4–37.1; O2SAT 96–99; BMI 28.3
--- NOTE | 2024-06-14 13:33 | ECG_ITS ---
APPROVED REPORT Exam: Resting ECG HR:77 bpm ECG Measurements Heart Rate 77 AXES MT 143 P 54 QRSd 96 QRS 8 QT 366 T 42 QTc 398 Conclusion SINUS RHYTHM NONSPECIFIC T-WAVE ABNORMALITY BORDERLINE ECG UNCONFIRMED REPORT Electronically signed by : YAZMIN MONIQUE, 06/15/2024 06:48:53
--- NOTE | 2024-06-14 13:52 | PC.NURSE ---
DR TUCKER AT BEDSIDE
[2024-06-14 13:54] LABS: Activated Partial Thrombo Time 23.7 seconds (22.8-30.6); Alanine Aminotransferase 24 U/L (12-78); Albumin/Globulin Ratio 1.4 (1.1-1.8); Alkaline Phosphatase 77 U/L (38-126); Anion Gap 10.3 mEq/L (5-15); Aspartate Amino Transferase 28 U/L (14-36); Bilirubin,Total 0.8 mg/dl (0.2-1.3); Blood Urea Nitrogen 13 mg/dl (7-17); Calcium 8.8 mg/dl (8.4-10.2); Carbon Dioxide 27 mmol/L (22.0-30.0); Chloride 106 mmol/L (98-107); Creatinine Clearance Estimated 114 mL/min (50-200); Estimated Glomerular Filt Rate 102 ml/min (>60); GFR (African American) 123 ML/MIN (>60); Globulin 2.9 g/dL (1.3-3.2); Glucose 90 mg/dl (74-100); INR 0.87 (0.9-1.1); Potassium 4.3 mmoL/L (3.5-5.1); Prothrombin Time 9.9 seconds (10.1-12.5); Sodium 139 mmol/L (136-145); Total Protein,Serum 6.9 g/dl (6.3-8.2)
[2024-06-14 13:59] LABS: Basophils % 0.5 % (0.1-2.0); Eosinophils # 0.2 K/mm3 (0.0-0.4); Eosinophils % 2.1 % (0.1-12.0); Hematocrit 37.9 % (37.0-47.0); Hemoglobin 12.3 g/dL (12.2-16.2); Lymphocytes % 22.1 % (10-50); Mean Corpuscular HGB Conc 32.6 g/dL (31.8-35.4); Mean Corpuscular Hemoglobin 29.7 pg (27.0-31.2); Mean Corpuscular Volume 91.2 fl (81-99); Mean Platelet Volume 7.7 fl (7.4-10.4); Monocytes # 0.8 K/mm3 (0.1-1.0); Monocytes % 8.3 % (1.7-9.3); Neutrophils # 6.2 K/mm3 (1.8-7.8); Platelet Count 260 K/mm3 (142-424); Red Blood Count 4.15 M/mm3 (4.20-5.40); Red Cell Distribution Width 14.5 % (11.5-17.5); White Blood Count 9.2 K/mm3 (4.8-10.8)
--- NOTE | 2024-06-14 14:06 | CT_ITS ---
FINAL REPORT TECHNIQUE: Pre-and postcontrast images of the abdomen through the pelvis were performed by computed tomography. Extensive 3-D reconstruction images were performed. A CTA was performed. This study was performed with techniques to keep radiation doses as low as reasonably achievable (ALARA). Individualized dose reduction techniques using automated exposure control or adjustment of mA and/or kV according to the patient's size were employed. CLINICAL HISTORY: concern for retroperitoneal hem after cath COMPARISON: 09/24/2022 FINDINGS: ABDOMEN: The lung bases are clear. Precontrast images demonstrate no evidence of nephrolithiasis. The liver is homogeneous. The gallbladder is absent. The spleen, pancreas, and adrenal glands are unremarkable. The kidneys are unremarkable. There is high density fluid in the right retroperitoneum which is unchanged in size and distribution compared to the prior study. There is no evidence of active bleed. There are small scattered diverticuli throughout the sigmoid colon. PELVIS: The appendix is not identified. The urinary bladder is unremarkable. The uterus is present. There is no significant free fluid or adenopathy. The bony pelvis is unremarkable. IMPRESSION: High density fluid in the right retroperitoneum, unchanged without evidence of active bleed. Reviewed, Interpreted and Dictated by Lawson Hilton MD Transcribed by Dulce Rivera Authenticated and . [facility]
--- NOTE | 2024-06-14 14:11 | ED_ITS ---
Discharge Plan Disposition Patient Disposition: Admitted Clinical Impressions Clinical Impression: Retroperitoneal bleed Discharge ED Provider: Pao Donaldson General Adult HPI <Simon Kaiser MD - Last Filed: 06/14/24 15:21> General Chief complaint: PAIN Stated complaint: retroperitoneal hemorrage Time Seen by Provider: 06/14/24 13:29 Mode of Arrival: Ambulatory Limitations: No Limitations Description of Symptoms (Recalled from ER Triage Doc. by RN): PT SENT FROM CARDIOLOGY OFFICE, PT WITH FEMORAL HEART CATH 06/07/2024. PAIN AT SITE WORSE WITH MOVEMENT OR COUGH, MINIMAL TO NO PAIN AT REST. BRUISING NOTED AT SITE, NO HEMATOMA OR REDNESS AT SITE. PT DENIES SHORTNESS OF BREATH OR CHEST PAIN. PT DENIES FEVER, CHILLS, NO DIZZINESS OR SYNCOPE History of Present Illness HPI narrative: Please note that above description of symptoms, in this electronic medical record under categorization of recalled from ER triage doctor by RN are reflective of an initial nursing assessment, however, is not reflective of my full history and physical exam that was personally taken and clarified. Consequentially, this preceding description of symptoms, which may include the patient's categorized chief complaint in the EMR, do not reflect my personal clinical impression, and the ultimate description of history of present illness and patient stated complaints should be deferred to this section of the note. Unless stated otherwise or congruent with this section of the note, additional signs, symptoms, or incongruence should be interpreted as inaccurate with my clinical impression. Related Data Home Medications ?Medication ?Instructions ?Recorded ?Confirmed aspirin 81 mg chewable tablet 81 mg PO DAILY Heart Health 04/25/18 06/14/24 lansoprazole 30 mg capsule,delayed 30 mg PO DAILY Acid Reflux 04/25/18 06/14/24 release levothyroxine 112 mcg tablet 112 mcg PO DAILY 04/13/22 06/14/24 (Synthroid) valsartan 160 mg tablet 320 mg PO DAILY 03/29/24 06/14/24 clotrimazole-betamethasone 1 1 applic topical NEEDED PRN pain 06/14/24 06/14/24 %-0.05 % topical cream glimepiride 2 mg tablet 2 mg PO WEEKLY 06/14/24 06/14/24 metoprolol succinate 50 mg 50 mg PO DAILY 06/14/24 06/14/24 tablet,extended release 24 hr sitagliptin phosphate 100 mg 100 mg PO DAILYDM 06/14/24 06/14/24 tablet (Januvia) Previous Rx's ?Medication ?Instructions ?Recorded azelastine 137 mcg (0.1 %) nasal 1 spray intranasal BID #30 mL 10/11/23 spray levocetirizine 5 mg tablet (Xyzal) 5 mg PO DAILY #30 tabs 10/11/23 atorvastatin 80 mg tablet 80 mg PO DAILY High cholesterol 02/27/24 #90 tabs meclizine 25 mg tablet 25 mg PO BID PRN dizziness #20 tabs 03/29/24 evolocumab 140 mg/mL subcutaneous 140 mg SQ Q2W #2 mL 04/19/24 pen injector (Repatha SureClick) amlodipine 5 mg tablet 5 mg PO DAILY #30 tabs 05/07/24 citalopram 20 mg tablet 20 mg PO DAILY #90 tabs 05/10/24 clopidogrel 75 mg tablet (Plavix) 75 mg PO DAILY 30 days #30 tabs 06/07/24 Allergies Allergy/AdvReac Type Severity Reaction Status Date / Time No Known Allergies Allergy Verified 06/14/24 10:50 PFS <Simon Kaiser MD - Last Filed: 06/14/24 15:21> [facility] Disclaimer: The information contained in this section may have been updated after the patient was seen, as this information can be updated by other users. Medical History Abnormal stress ECG Bilateral impacted cerumen Vertigo Intolerance of continuous positive airway pressure (CPAP) ventilation TMJ (dislocation of temporomandibular joint) Edema of right lower extremity Surgical History History of rotator cuff surgery S/P CABG x 3 Social History Smoking Status: Former smoker alcohol intake: never current occupational status: employed Travel in the last 8 weeks: Inside the [place] caffeine: No <Simon Kaiser MD - Last Filed: 06/14/24 15:21> ROS Obtained: Yes All systems reviewed & no additional complaints except as documented Physical Exam <Simon Kaiser MD - Last Filed: 06/14/24 15:21> General General appearance: alert Head Head exam: atraumatic and normocephalic Eye Eye exam: Present normal appearance, PERRL and EOMI Neck Neck exam: Present normal inspection, full ROM and trachea midline Respiratory Respiratory exam: Absent respiratory distress, wheezes, stridor, accessory muscle use or prolonged expiratory phase Cardiovascular Cardiovascular exam: Present other (Pulses equal symmetric in upper and lower extremities) Abdominal Exam Abdominal exam: Present soft and tenderness; Absent distention or pulsatile mass Abdominal tenderness: Present RLQ (And right flank. No outward signs of abnormality) Extremities Exam Extremities exam: Absent edema Neurological Exam Neurological exam: Present alert, oriented X3 and CN II-XII intact; Absent motor sensory deficit Skin Skin exam: Present warm and dry; Absent diaphoresis or erythema Medical Decision Making <Simon Kaiser MD - Last Filed: 06/14/24 15:21> Medical Records Medical records reviewed: Yes I reviewed the patient's medical records. Neftaly Inquiry Pt receiving controlled substance: No Neftaly was queried for this patient: No Vital Signs: 06/14/24 13:26 06/14/24 13:31 06/14/24 14:00 Temperature 98.0 F Temperature Source Oral Pulse Rate 80 81 Pulse Rate [Apical] 82 Respiratory Rate 16 Blood Pressure 157/81 H 150/76 H Blood Pressure [Left Arm] 157/81 H Blood Pressure Mean 90 100 Blood Pressure Mean [Left Arm] 106 Blood Pressure Source [Left Arm] Automatic Cuff Blood Pressure Position [Left Arm] Sitting 02 Sat by Pulse Oximetry 98 98 99 Oxygen Delivery Method Room Air 06/14/24 15:01 06/14/24 17:00 Temperature 98.0 F Temperature Source Oral Pulse Rate 86 87 Pulse Rate [Apical] Respiratory Rate 16 16 Blood Pressure 162/87 H 141/83 H Blood Pressure [Left Arm] Blood Pressure Mean Blood Pressure Mean [Left Arm] Blood Pressure Source [Left Arm] Blood Pressure Position [Left Arm] 02 Sat by Pulse Oximetry 96 Oxygen Delivery Method Room Air Lab Data Lab Results 06/14/24 13:35: WBC 9.2, RBC 4.15 L, Hgb 12.3, Hct 37.9, MCV 91.2, MCH 29.7, MCHC 32.6, RDW 14.5, Plt Count 260, MPV 7.7, Neut % (Auto) 67.0, Lymph % (Auto) 22.1, [place] % (Auto) 8.3, Eos % (Auto) 2.1, Baso % (Auto) 0.5, Neut # (Auto) 6.2, Lymph # (Auto) 2.0, [place] # (Auto) 0.8, Eos # (Auto) 0.2, Baso # (Auto) 0.0, PT 9.9 L, INR 0.87 L, APTT 23.7, Sodium 139, Potassium 4.3, Chloride 106, Carbon Dioxide 27, Anion Gap 10.3, BUN 13, Creatinine 0.60, Estimated Creat Clear 114, Estimated GFR 102, Est GFR ( Amer) 123, Glucose 90, Calcium 8.8, Total Bilirubin 0.8, AST 28, ALT 24, Alkaline Phosphatase 77, Total Protein 6.9, Albumin 4.0, Globulin 2.9, Albumin/Globulin Ratio 1.4, TSH 0.83 06/14/24 13:35 06/14/24 13:35 Orders (Tests/Meds): ED MEDICATIONS Generic Name Dose Route Start Last Admin Trade Name Freq PRN Reason Stop Dose Admin Hydrocodone Bitart/Acetaminophen 1 tab 06/14/24 16:45 Hydrocodone/Apap 5/325 Mg Tablet PO 07/14/24 16:44 Q6HP PRN Mild to Moderate Pain (1-6) Amlodipine Besylate 5 mg 06/15/24 09:00 Amlodipine 5mg Tablet PO 07/15/24 08:59 DAILY NANCY Aspirin 81 mg 06/15/24 09:00 Aspirin 81mg Chewable Tablet PO 07/15/24 08:59 DAILY NANCY Atorvastatin Calcium 80 mg 06/15/24 09:00 Atorvastatin 40mg Tablet PO 07/15/24 08:59 DAILY NANCY Citalopram Hydrobromide 20 mg 06/15/24 09:00 Citalopram 20mg Tablet PO 07/15/24 08:59 DAILY NANCY Clopidogrel Bisulfate 75 mg 06/15/24 09:00 Clopidogrel 75mg Tab PO 07/15/24 08:59 DAILY NANCY Levothyroxine Sodium 112 mcg 06/15/24 09:00 Levothyroxine 112mcg (0.112mg) Tab PO 07/15/24 08:59 DAILY NANCY Metoprolol Succinate 5 mg 06/15/24 09:00 Metoprolol Succinate Xl 50mg Tablet PO 07/15/24 08:59 DAILY NANCY Non-Formulary Medication 100 mg 06/15/24 09:00 Sitagliptin Phosphate [Januvia] PO 07/15/24 08:59 DAILY NANCY Non-Formulary Medication 320 mg 06/15/24 09:00 Valsartan PO 07/15/24 08:59 DAILY NANCY Discontinued Medications Generic Name Dose Route Start Last Admin Trade Name Justin PRN Reason Stop Dose Admin Lactated Ringer's 1,000 mls @ 999 mls/hr 06/14/24 14:06 06/14/24 14:12 Lactated Ringer's 1000 Ml Bag IV 06/14/24 15:06 999 mls/hr .Q1H1M ONE Administration Iopamidol 100 ml 06/14/24 14:36 06/14/24 14:37 Iopamidol-370 (76%);100ml Bottle IV 06/14/24 14:37 100 ml ONCE ONE Administration Sodium Chloride 10 ml 06/14/24 14:36 06/14/24 14:37 Sodium Chloride 0.9% 10ml Syr (Rad Only) IV 06/14/24 14:37 10 ml ONCE ONE Administration Sodium Chloride 50 ml 06/14/24 14:36 06/14/24 14:37 0.9 % Sodium Chloride 50 Ml Vial IV 06/14/24 14:37 50 ml ONCE ONE Administration ORDERS Category Date Time Status CT angio abdomen pelvis Stat Cat Scan 06/14/24 14:06 Completed CBC w/Auto Diff [Complete Blood Count Auto Diff] Stat Lab 06/14/24 13:35 Completed CMP [Comprehensive Metabolic Panel] Stat Lab 06/14/24 13:35 Completed Complete Blood Count Auto Diff AMLAB Lab 06/15/24 06:00 Ordered Comprehensive Metabolic Panel AMLAB Lab 06/15/24 06:00 Ordered Hemoglobin A1C Routine Lab 06/14/24 13:35 Received Magnesium AMLAB Lab 06/15/24 06:00 Ordered PT INR [Prothrombin Time INR] Stat Lab 06/14/24 13:35 Completed PTT [Activated Partial Thrombo Time] Stat Lab 06/14/24 13:35 Completed TSH [Thyroid Stimulating Hormone] Routine Lab 06/14/24 13:35 Completed Medical Decision Narrative: Very pleasant 58-year-old female history of hypertension, hyperlipidemia, CABG, recent heart cath last week with 1 stent placed presenting with concern for retroperitoneal hemorrhage. Patient states that since her catheterization on last week, 70s prior to this, she started having pain a couple days later. 5 days prior to the visit, she started having pain that was in her right flank/right side of her abdomen. Has been progressively getting worse. Was so severe, 7-8 out of 10 today while she was following up with cardiology the cardiology ordered CT abdomen and pelvis. This was noncontrasted scan, concern for hemorrhage in the retroperitoneum. Because patient on dual antiplatelet therapy, sent to the ED for further evaluation. Patient's pain currently mild in intensity. No nausea, vomiting, fevers, chills, diaphoresis, urinary symptoms, blood in the stool or urine, or any other concerns.History was obtained via conversation with patient, family, cardiology, hospitalist. On arrival, patient hemodynamically stable, alert, oriented x4, appropriate, GCS 15, moving all extremities spontaneously, pupils equal and reactive to light. Full physical exam performed and significant for very well-appearing female no acute distress. Abdomen is soft, tender along right lower quadrant and right flank. No outward signs of abnormality. Pulses equal and symmetric, no obvious palpable bruit. Neurologically intact. Differential includes pseudoaneurysm, arterial perforation, retroperitoneal hemorrhage, among others. Patient placed on continuous cardiac monitoring and continuous pulse ox with initial blood pressure 157/81, heart rate 82, saturation 98 on room air. Independent interpretation of EKG shows ventricular rate [address] or T wave changes concern for ischemia. MD, QRS, QT intervals 143, 96, 398 respectively. Workup independently interpreted and significant for normal hemoglobin. Nonactionable CBC or chemistry. Coags normal.. On independent interpretation of imaging, appears to be arterial dissection versus pseudoaneurysm and common femoral artery, but prior to final radiology read and disposition, care handed off to oncoming physician. Roller Presser Operator disclaimer Much of this encounter note is an electronic nurse unit manager spoken language to printed text. Electronic nurse unit manager of the spoken language may permit errors. Although I have reviewed the note, some errors may still exist. <Pao Donaldson, DO - Last Filed: 06/14/24 22:22> Vital Signs: 06/14/24 13:26 06/14/24 13:31 06/14/24 14:00 Temperature 98.0 F Temperature Source Oral Pulse Rate 80 81 Pulse Rate [Apical] 82 Respiratory Rate 16 Blood Pressure 157/81 H 150/76 H Blood Pressure [Left Arm] 157/81 H Blood Pressure Mean 90 100 Blood Pressure Mean [Left Arm] 106 Blood Pressure Source [Left Arm] Automatic Cuff Blood Pressure Position [Left Arm] Sitting 02 Sat by Pulse Oximetry 98 98 99 Oxygen Delivery Method Room Air 06/14/24 15:01 06/14/24 17:00 Temperature 98.0 F Temperature Source Oral Pulse Rate 86 87 Pulse Rate [Apical] Respiratory Rate 16 16 Blood Pressure 162/87 H 141/83 H Blood Pressure [Left Arm] Blood Pressure Mean Blood Pressure Mean [Left Arm] Blood Pressure Source [Left Arm] Blood Pressure Position [Left Arm] 02 Sat by Pulse Oximetry 96 Oxygen Delivery Method Room Air Lab Data Lab Results 06/14/24 13:35: WBC 9.2, RBC 4.15 L, Hgb 12.3, Hct 37.9, MCV 91.2, MCH 29.7, MCHC 32.6, RDW 14.5, Plt Count 260, MPV 7.7, Neut % (Auto) 67.0, Lymph % (Auto) 22.1, [place] % (Auto) 8.3, Eos % (Auto) 2.1, Baso % (Auto) 0.5, Neut # (Auto) 6.2, Lymph # (Auto) 2.0, [place] # (Auto) 0.8, Eos # (Auto) 0.2, Baso # (Auto) 0.0, PT 9.9 L, INR 0.87 L, APTT 23.7, Sodium 139, Potassium 4.3, Chloride 106, Carbon Dioxide 27, Anion Gap 10.3, BUN 13, Creatinine 0.60, Estimated Creat Clear 114, Estimated GFR 102, Est GFR ( Amer) 123, Glucose 90, Calcium 8.8, Total Bilirubin 0.8, AST 28, ALT 24, Alkaline Phosphatase 77, Total Protein 6.9, Albumin 4.0, Globulin 2.9, Albumin/Globulin Ratio 1.4, TSH 0.83 Orders (Tests/Meds): ED MEDICATIONS Generic Name Dose Route Start Last Admin Trade Name Freq PRN Reason Stop Dose Admin Hydrocodone Bitart/Acetaminophen 1 tab 06/14/24 16:45 Hydrocodone/Apap 5/325 Mg Tablet PO 07/14/24 16:44 Q6HP PRN Mild to Moderate Pain (1-6) Amlodipine Besylate 5 mg 06/15/24 09:00 Amlodipine 5mg Tablet PO 07/15/24 08:59 DAILY NANCY Aspirin 81 mg 06/15/24 09:00 Aspirin 81mg Chewable Tablet PO 07/15/24 08:59 DAILY NANCY Atorvastatin Calcium 80 mg 06/15/24 09:00 Atorvastatin 40mg Tablet PO 07/15/24 08:59 DAILY NANCY Citalopram Hydrobromide 20 mg 06/15/24 09:00 Citalopram 20mg Tablet PO 07/15/24 08:59 DAILY NANCY Clopidogrel Bisulfate 75 mg 06/15/24 09:00 Clopidogrel 75mg Tab PO 07/15/24 08:59 DAILY NANCY Levothyroxine Sodium 112 mcg 06/15/24 09:00 Levothyroxine 112mcg (0.112mg) Tab PO 07/15/24 08:59 DAILY NANCY Metoprolol Succinate 5 mg 06/15/24 09:00 Metoprolol Succinate Xl 50mg Tablet PO 07/15/24 08:59 DAILY NANCY Non-Formulary Medication 100 mg 06/15/24 09:00 Sitagliptin Phosphate [Januvia] PO 07/15/24 08:59 DAILY NANCY Non-Formulary Medication 320 mg 06/15/24 09:00 Valsartan PO 07/15/24 08:59 DAILY NANCY Discontinued Medications Generic Name Dose Route Start Last Admin Trade Name Warrenq PRN Reason Stop Dose Admin Lactated Ringer's 1,000 mls @ 999 mls/hr 06/14/24 14:06 06/14/24 14:12 Lactated Ringer's 1000 Ml Bag IV 06/14/24 15:06 999 mls/hr .Q1H1M ONE Administration Iopamidol 100 ml 06/14/24 14:36 06/14/24 14:37 Iopamidol-370 (76%);100ml Bottle IV 06/14/24 14:37 100 ml ONCE ONE Administration Sodium Chloride 10 ml 06/14/24 14:36 06/14/24 14:37 Sodium Chloride 0.9% 10ml Syr (Rad Only) IV 06/14/24 14:37 10 ml ONCE ONE Administration Sodium Chloride 50 ml 06/14/24 14:36 06/14/24 14:37 0.9 % Sodium Chloride 50 Ml Vial IV 06/14/24 14:37 50 ml ONCE ONE Administration ORDERS Category Date Time Status CT angio abdomen pelvis Stat Cat Scan 06/14/24 14:06 Completed CBC w/Auto Diff [Complete Blood Count Auto Diff] Stat Lab 06/14/24 13:35 Completed CMP [Comprehensive Metabolic Panel] Stat Lab 06/14/24 13:35 Completed Complete Blood Count Auto Diff AMLAB Lab 06/15/24 06:00 Ordered Comprehensive Metabolic Panel AMLAB Lab 06/15/24 06:00 Ordered Hemoglobin A1C Routine Lab 06/14/24 13:35 Received Magnesium AMLAB Lab 06/15/24 06:00 Ordered PT INR [Prothrombin Time INR] Stat Lab 06/14/24 13:35 Completed PTT [Activated Partial Thrombo Time] Stat Lab 06/14/24 13:35 Completed TSH [Thyroid Stimulating Hormone] Routine Lab 06/14/24 13:35 Completed Medical Decision Narrative: Very pleasant 58-year-old female history of hypertension, hyperlipidemia, CABG, recent heart cath last week with 1 stent placed presenting with concern for retroperitoneal hemorrhage. Patient states that since her catheterization on last week, 70s prior to this, she started having pain a couple days later. 5 days prior to the visit, she started having pain that was in her right flank/right side of her abdomen. Has been progressively getting worse. Was so severe, 7-8 out of 10 today while she was following up with cardiology the cardiology ordered CT abdomen and pelvis. This was noncontrasted scan, concern for hemorrhage in the retroperitoneum. Because patient on dual antiplatelet therapy, sent to the ED for further evaluation. Patient's pain currently mild in intensity. No nausea, vomiting, fevers, chills, diaphoresis, urinary symptoms, blood in the stool or urine, or any other concerns.History was obtained via conversation with patient, family, cardiology, hospitalist. On arrival, patient hemodynamically stable, alert, oriented x4, appropriate, GCS 15, moving all extremities spontaneously, pupils equal and reactive to light. Full physical exam performed and significant for very well-appearing female no acute distress. Abdomen is soft, tender along right lower quadrant and right flank. No outward signs of abnormality. Pulses equal and symmetric, no obvious palpable bruit. Neurologically intact. Differential includes pseudoaneurysm, arterial perforation, retroperitoneal hemorrhage, among others. Patient placed on continuous cardiac monitoring and continuous pulse ox with initial blood pressure 157/81, heart rate 82, saturation 98 on room air. Independent interpretation of EKG shows ventricular rate [address] or T wave changes concern for ischemia. MD, QRS, QT intervals 143, 96, 398 respectively. Workup independently interpreted and significant for normal hemoglobin. Nonactionable CBC or chemistry. Coags normal.. On independent interpretation of imaging, appears to be arterial dissection versus pseudoaneurysm and common femoral artery, but prior to final radiology read and disposition, care handed off to oncoming physician. Roller Presser Operator disclaimer Much of this encounter note is an electronic nurse unit manager spoken language to printed text. Electronic nurse unit manager of the spoken language may permit errors. Although I have reviewed the note, some errors may still exist. DO Mendoza: I assumed care of the patient at 1500. On my assessment, she is resting comfortably. She is hemodynamically stable. CT scan does not demonstrate any active bleeding or active extravasation. She does still have a hematoma. I had a discussion with the patient regarding potentially going home and follow-up closely, but she states she does not feel comfortable going home and would feel more comfortable if she got admitted. Given this, I had an interactive discussion with the hospitalist who admitted the patient for monitoring of her hemoglobin to ensure that she does not develop rebleeding. Patient was admitted in stable condition. Critical Care <Simon Kaiser MD - Last Filed: 06/14/24 15:21> Critical Care Time Critical Care Time: No
[2024-06-14] MEDS: LACTATED RINGERS 1000ML 1,000 ML 999 ML IV (14:12)
--- NOTE | 2024-06-14 14:34 | PC.NURSE ---
PT RETURNED FROM CT
[2024-06-14] MEDS: 0.9 % SODIUM CHLORIDE 50 ML VIAL IV (14:37)
[2024-06-14] MEDS: SODIUM CHLORIDE 0.9% 10ML SYR (RAD ONLY) 10 ML IV (14:37)
[2024-06-14] MEDS: IOPAMIDOL-370 (76%);100ML BOTTLE 100 ML IV (14:37)
--- NOTE | 2024-06-14 16:05 | PC.NURSE ---
ROUNDED ON PT, TALKING ON PHONE. CALL LIGHT WITHIN REACH. UPDATED ON POC.
--- NOTE | 2024-06-14 16:46 | P.HP_ITS ---
History of Present Illness *Admission Date: 06/14/24 *Reason for visit:: Flank pain *History of present illness: Ms. Dickerson is a 58-year-old female with history of CABG x 3. She presented for elective heart cath last week on 06/07. Femoral approach was used. Developed some slight groin pain over the days following. Pain progressed to lower abdominal pain on the right side. States it felt like she had muscle pain in her lower rib. Tender to palpation on the right side. Denies any nausea, vomiting, diarrhea, trauma. No active signs of bleeding. Informed her primary care who recommended CT but was unable to get scheduled until 2 weeks from now. Presented to cardiology today for follow-up. CT of her abdomen was obtained showing concern for retroperitoneal bleed. Patient was sent to the ER for further evaluation. CT with contrast obtained showing no active extravasation. Hemoglobin prior to her surgery of 13.9 on 06/07. Hemoglobin 12.5 on 06/09. 12.3 today in the ER. Appears to be stable. Patient has been tolerating her aspirin and Plavix and taking them daily as prescribed. Stable on room air. Given stability on imaging of retroperitoneal hematoma and hemoglobin, will admit patient for serial H&H and monitoring for any bleeding. Additionally having sig nificant pain. Discussed case with ER physician, request admission. On arrival to the floor, patient is alert and oriented x 4. In no acute distress. On room air. [facility] Disclaimer: The information contained in this section may have been updated after the patient was seen, as this information can be updated by other users. Medical History Abnormal stress ECG Bilateral impacted cerumen Vertigo Intolerance of continuous positive airway pressure (CPAP) ventilation TMJ (dislocation of temporomandibular joint) Edema of right lower extremity Surgical History History of rotator cuff surgery S/P CABG x 3 Social History Smoking Status: Former smoker alcohol intake: never current occupational status: employed Travel in the last 8 weeks: Inside the [place] caffeine: No Meds Home Medications and Allergies Home Medications ?Medication ?Instructions ?Recorded ?Confirmed ?Type aspirin 81 mg chewable tablet 81 mg PO DAILY [facility] 04/25/18 06/14/24 H istory lansoprazole 30 mg capsule,delayed 30 mg PO DAILY Acid Reflux 04/25/18 06/14/24 History release levothyroxine 112 mcg tablet 112 mcg PO DAILY 04/13/22 06/14/24 History (Synthroid) azelastine 137 mcg (0.1 %) nasal 1 spray intranasal BID #30 mL 10/11/23 06/14/24 Rx spray levocetirizine 5 mg tablet (Xyzal) 5 mg PO DAILY #30 tabs 10/11/23 06/14/24 Rx atorvastatin 80 mg tablet 80 mg PO DAILY High cholesterol 02/27/24 06/14/24 Rx #90 tabs meclizine 25 mg tablet 25 mg PO BID PRN dizziness #20 tabs 03/29/24 06/14/24 Rx valsartan 160 mg tablet 320 mg PO DAILY 03/29/24 06/14/24 History evolocumab 140 mg/mL subcutaneous 140 mg SQ Q2W #2 mL 04/19/24 06/14/24 Rx pen injector (Maricel Avery) amlodipine 5 mg tablet 5 mg PO DAILY #30 tabs 05/07/24 06/14/24 Rx citalopram 20 mg tablet 20 mg PO DAILY #90 tabs 05/10/24 06/14/24 Rx clopidogrel 75 mg tablet (Plavix) 75 mg PO DAILY 30 days #30 tabs 06/07/24 06/14/24 Rx clotrimazole-betamethasone 1 applic topical 06/14/24 06/14/24 History %-0.05 % topical cream glimepiride 2 mg tablet mg PO 06/14/24 06/14/24 History metoprolol succinate 50 mg mg PO 06/14/24 06/14/24 History tablet,extended release 24 hr sitagliptin phosphate 100 mg mg PO 06/14/24 06/14/24 History tablet (Januvia) New Prescriptions to Start Prescriptions: Allergies Allergy/AdvReac Type Severity Reaction Status Date / Time No Known Allergies Allergy Verified 06/14/24 10:50 Exam Data for Last 24 hours Vital signs and Labs for Last 24 Hours: Temp Pulse Resp BP Pulse Ox O2 Del Method 98.0 F 86 16 162/87 H 96 Room Air 06/14/24 13:26 06/14/24 15:01 06/14/24 15:01 06/14/24 15:01 06/14/24 15:06/14/24 13:26 Laboratory Results - last 24 hr 06/14/24 13:35: WBC 9.2, RBC 4.15 L, Hgb 12.3, Hct 37.9, MCV 91.2, MCH 29.7, MCHC 32.6, RDW 14.5, Plt Count 260, MPV 7.7, Neut % (Auto) 67.0, Lymph % (Auto) 22.1, [place] % (Auto) 8.3, Eos % (Auto) 2.1, Baso % (Auto) 0.5, Neut # (Auto) 6.2, Lymph # (Auto) 2.0, [place] # (Auto) 0.8, Eos # (Auto) 0.2, Baso # (Auto) 0.0, PT 9.9 L, INR 0.87 L, APTT 23.7, Sodium 139, Potassium 4.3, Chloride 106, Carbon Dioxide 27, Anion Gap 10.3, BUN 13, Creatinine 0.60, Estimated Creat Clear 114, Estimated GFR 102, Est GFR ( Amer) 123, Glucose 90, Calcium 8.8, Total Bilirubin 0.8, AST 28, ALT 24, Alkaline Phosphatase 77, Total Protein 6.9, Albumin 4.0, Globulin 2.9, Albumin/Globulin Ratio 1.4 I & O for Last 24 hours: Intake & Output 06/11/24 06/12/24 06/13/24 06/14/24 23:59 23:59 23:59 23:59 Weight 72.575 kg Constitutional Constitutional: no acute distress, average body habitus, chronically ill appearing and cooperative *Routine HEENT Exam Head: Present normocephalic Eye: Present EOMI and PERRL ENT: Present mucous membranes moist *Routine Neck Exam Neck: Present supple; Absent lymphadenopathy Routine Chest/Breast/Axilla Exam Comments: Well-healed sternotomy scar *Routine Respiratory Exam Respiratory: Present CTA bilaterally *Routine Cardiovascular Exam Cardiovascular: Present RRR *Routine Abdominal Exam Abdominal: Present soft, normoactive bowel sounds, tenderness (Significantly on the right side) and guarding; Absent distended or rebound *Routine Rectal Exam Rectal:: deferred *Routine Genitalia Exam Genitalia:: deferred *Routine Extremities Exam Extremities: Absent cyanosis, clubbing or edema *Routine Skin Exam Skin: Present warm; Absent rash *Routine Neurological Exam Neurological: Present alert, oriented X3 and moving all extremities; Absent altered mental status Assessment and Plan *Assessment and plan (1) Retroperitoneal bleed: Status: Acute Category: Medical Code(s): R58 - Hemorrhage, not elsewhere classified (2) Postoperative abdominal pain: Status: Acute Category: Medical Code(s): R10.9 - Unspecified abdominal pain; G89.18 - Other acute postprocedural pain (3) S/P CABG x 3: Status: Chronic Category: Surgical Code(s): Z95.1 - Presence of aortocoronary bypass graft (4) HLD (hyperlipidemia): Status: Chronic Qualifiers: Hyperlipidemia type: mixed hyperlipidemia Qualified Code(s): E78.2 - Mixed hyperlipidemia Category: Medical Code(s): E78.5 - Hyperlipidemia, unspecified (5) HTN (hypertension): Status: Chronic Qualifiers: Hypertension type: primary hypertension Qualified Code(s): I10 - Essential (primary) hypertension Category: Medical Code(s): I10 - Essential (primary) hypertension (6) Diabetes mellitus type 2 in nonobese: Status: Chronic Category: Medical Code(s): E11.9 - Type 2 diabetes mellitus without complications (7) Hypothyroid: Status: Acute Category: Medical Code(s): E03.9 - Hypothyroidism, unspecified (8) Anemia: Status: Acute Category: Medical Code(s): D64.9 - Anemia, unspecified Plan 58-year-old female who presented to cardiology clinic due to persistent abdominal pain. Had a recent heart cath on 06/[address] obtained showing retroperitoneal hematoma. Sent to the ER for evaluation. Hemoglobin 12.5, imaging with CTA showing no active extravasation. Discussed case with ER physician, request admission for serial H&H and monitoring overnight along with pain control. I agreed to admit for further management. Will obtain ultrasound in the morning of her right femoral artery. Serial H&H every 8 hours. Problems addressed as follows: Retroperitoneal hematoma CAD History of CABG -Hemoglobin 12.3. 12.5 on 06/09. Repeat H&H this evening at 10 PM, repeat CBC, CMP, magnesium ordered for the morning. -Per my review of CTs of abdomen, no active flash or blush at femoral insertion site on CTA, appears to have hematoma or fluid collection in the retroperitoneal space on the right side. -Serial exams overnight. Will obtain right femoral ultrasound to evaluate for pseudoaneurysm -Continue dual antiplatelet therapy with aspirin 81 mg daily and Plavix 75 mg daily -Hold anticoagulation given DAPT therapy and potential for bleeding with over blood -Continue metoprolol 50 mg succinate daily and valsartan 160 mg daily for hypertension, blood pressure acceptable at this time at 139/73. States she did not take her medications today -Cardiology consulted to evaluate in the morning. Chronic conditions: Stable Hypothyroid: Continue levothyroxine 112 mcg daily, TSH pending Diabetes: A1c pending, generally well-controlled per her report, sliding scale insulin w/ Fingersticks ACHS, Januvia 100 mg daily Continue citalopram 20 mg daily for mood Continue Lipitor 80 mg daily for hyperlipidemia Full code Cardiac diet Holding anticoagulation in the setting of retroperitoneal bleed, already on DAPT therapy
--- NOTE | 2024-06-14 17:00 | PC.NURSE ---
REPORTCALLED TO MADAI ETIENNE
[2024-06-14 17:36] LABS: Thyroid Stimulating Hormone 0.83 uIU/mL (0.465-4.68)
--- NOTE | 2024-06-14 18:40 | PC.NURSE ---
pt arrived to the floor shortly before shift change. pt is very pleasant with at bedside. VSS. Pt complains of pain in the right flank area when pressure is applied, the pt breathes deeply, or coughs. When lying in bed there is no pain. bruising noted on the right groin as a result of femoral access for stenting. pt is completely independent. reported plan was to monitor overnight, draw H&H in the morning to ensure no active bleeding. pt has no current complaints.
[2024-06-14 22:25] LABS: Hemoglobin A1C 6.8 % (4.0-6.0)
[2024-06-14 23:04] LABS: Hematocrit 32.9 % (37.0-47.0)
[2024-06-14] MEDS: HYDROCODONE/APAP 5/325 MG TABLET 1 TAB PO (23:04)
[2024-06-14] MEDS: ATORVASTATIN 40MG TABLET 80 MG PO (23:05)
[2024-06-14 23:14] LABS: Hemoglobin 10.9 g/dL (12.2-16.2)
[2024-06-15] VITALS: BP 131/75; PULSE 80; PULSE 81; RESP 18; TEMP 36.7; O2SAT 96
--- NOTE | 2024-06-15 | CA_ITS ---
FINAL REPORT CLINICAL HISTORY: Cath w stent placement 06/07/24, pain, bruising at Right Groin HTN, HLD, CABG 2021 CTA abd/pelvis x 2 FINDINGS: Limited arterial duplex of the right groin were obtained. There is proper flow in the right common femoral artery. There is no evidence of pseudoaneurysm. IMPRESSION: No evidence of pseudoaneurysm. Reviewed, Interpreted and Dictated by Lawson Hilton MD Transcribed by Cristina Calix Authenticated and . [facility]
[2024-06-15 04:00] VITALS: BP 121/68; PULSE 70; PULSE 77; RESP 18; TEMP 36.6; O2SAT 95; BMI 29.7
[2024-06-15 06:01] LABS: Basophils % 0.6 % (0.1-2.0); Eosinophils # 0.2 K/mm3 (0.0-0.4); Hematocrit 33.5 % (37.0-47.0); Hemoglobin 10.8 g/dL (12.2-16.2); Lymphocytes # 1.5 K/mm3 (0.7-4.5); Lymphocytes % 30.2 % (10-50); Mean Corpuscular HGB Conc 32.3 g/dL (31.8-35.4); Mean Corpuscular Hemoglobin 30.1 pg (27.0-31.2); Mean Corpuscular Volume 93.4 fl (81-99); Mean Platelet Volume 7.9 fl (7.4-10.4); Monocytes # 0.4 K/mm3 (0.1-1.0); Monocytes % 6.9 % (1.7-9.3); Neutrophils % 59.3 % (37.0-80.0); Platelet Count 235 K/mm3 (142-424); Red Blood Count 3.59 M/mm3 (4.20-5.40); Red Cell Distribution Width 14.4 % (11.5-17.5); White Blood Count 5.1 K/mm3 (4.8-10.8)
[2024-06-15 06:21] LABS: Alanine Aminotransferase 19 U/L (12-78); Albumin/Globulin Ratio 1.2 (1.1-1.8); Alkaline Phosphatase 67 U/L (38-126); Anion Gap 6.8 mEq/L (5-15); Aspartate Amino Transferase 24 U/L (14-36); Bilirubin,Total 0.6 mg/dl (0.2-1.3); Blood Urea Nitrogen 12 mg/dl (7-17); Calcium 8.2 mg/dl (8.4-10.2); Carbon Dioxide 25 mmol/L (22.0-30.0); Chloride 111 mmol/L (98-107); Creatinine Clearance Estimated 144 mL/min (50-200); Estimated Glomerular Filt Rate 126 ml/min (>60); GFR (African American) 152 ML/MIN (>60); Globulin 2.5 g/dL (1.3-3.2); Glucose 102 mg/dl (74-100); Magnesium 2.1 mg/dl (1.6-2.3); Potassium 3.8 mmoL/L (3.5-5.1); Sodium 139 mmol/L (136-145); Total Protein,Serum 5.5 g/dl (6.3-8.2)
--- NOTE | 2024-06-15 07:25 | HMH.PHAINT1 ---
Pharmacy Intervention Comments: MEDICATION RECONCILIATION COMPLETED ON PATIENT USING EXTERNAL FILL HISTORY FROM PHARMACY AND LIST FROM CARDIOLOGY OFFICE. -DAVY DIALLO, MAYCOD
[2024-06-15 08:00] VITALS: BP 129/75; PULSE 80; PULSE 82; RESP 22; TEMP 36.6; O2SAT 94
[2024-06-15] MEDS: CLOPIDOGREL 75MG TAB 75 MG PO (09:22)
[2024-06-15] MEDS: IRBESARTAN 300MG TABLET 300 MG PO (09:22)
[2024-06-15] MEDS: SITAGLIPTIN 50MG TABLET 100 MG PO (09:22)
[2024-06-15] MEDS: ASPIRIN 81MG CHEWABLE TABLET 81 MG PO (09:22)
[2024-06-15] MEDS: LEVOTHYROXINE 112MCG (0.112MG) TAB 112 MCG PO (09:22)
--- NOTE | 2024-06-15 09:32 | EXP.CARD.CON ---
History of Present Illness History of Present Illness Consult date: 06/15/24 Requesting physician: Serjio Naik Chief complaint: Abdominal pain History of present illness: This is a 58-year-old white female with past medical history of CABG x 3 who underwent left heart catheterization on 06/07 for abnormal stress test receiving stenting to proximal left main artery extending into the proximal LAD via groin approach who presented to cardiology clinic yesterday for follow-up complaining of right-sided abdominal pain. A non-contrasted CT was obtained which showed a high density fluid in the right retroperitoneum probably related to a hematoma. Patient was sent to emergency department for further evaluation. Labs were as follow: WBC 9.2, hemoglobin 12.3, sodium 139, potassium 4.3, BUN 13 and creatinine 0.6. An abdomen/pelvis CTA was obtained which again showed a high density fluid in the right retroperitoneum, unchanged, without evidence of active bleed. Patient was admitted to medicine service for further evaluation and pain management. An arterial ultrasound was obtained this morning which shows no evidence of pseudoaneurysm. Patient continues to endorse abdominal pain but reports overall it has improved. Denies chest pain or shortness of breath. [facility] Disclaimer: The information contained in this section may have been updated after the patient was seen, as this information can be updated by other users. Medical History Abnormal stress ECG Bilateral impacted cerumen Vertigo Intolerance of continuous positive airway pressure (CPAP) ventilation TMJ (dislocation of temporomandibular joint) Edema of right lower extremity Surgical History History of rotator cuff surgery S/P CABG x 3 Social History Smoking Status: Former smoker alcohol intake: never current occupational status: employed Travel in the last 8 weeks: Inside the [place] caffeine: No Review of Systems Review of Systems Review of systems:: pertinent systems reviewed and negative unless documented below *Gastrointestinal Comments: right sided abdominal pain Exam Data for Last 24 hours Vital signs and Labs for Last 24 Hours: Temp Pulse Resp BP Pulse Ox O2 Del Method 98 F 82 22 129/75 94 L Room Air 06/15/24 08:00 06/15/24 08:00 06/15/24 08:00 06/15/24 08:00 06/15/24 08:00 06/15/24 08:00 Laboratory Results - last 24 hr 06/14/24 13:35: WBC 9.2, RBC 4.15 L, Hgb 12.3, Hct 37.9, MCV 91.2, MCH 29.7, MCHC 32.6, RDW 14.5, Plt Count 260, MPV 7.7, Neut % (Auto) 67.0, Lymph % (Auto) 22.1, [place] % (Auto) 8.3, Eos % (Auto) 2.1, Baso % (Auto) 0.5, Neut # (Auto) 6.2, Lymph # (Auto) 2.0, [place] # (Auto) 0.8, Eos # (Auto) 0.2, Baso # (Auto) 0.0, PT 9.9 L, INR 0.87 L, APTT 23.7, Sodium 139, Potassium 4.3, Chloride 106, Carbon Dioxide 27, Anion Gap 10.3, BUN 13, Creatinine 0.60, Estimated Creat Clear 114, Estimated GFR 102, Est GFR ( Amer) 123, Glucose 90, Hemoglobin A1c 6.8 H, Calcium 8.8, Total Bilirubin 0.8, AST 28, ALT 24, Alkaline Phosphatase 77, Total Protein 6.9, Albumin 4.0, Globulin 2.9, Albumin/Globulin Ratio 1.4, TSH 0.83 06/14/24 22:53: Hgb 10.9 L D, Hct 32.9 L 06/15/24 05:17: WBC 5.1 D, RBC 3.59 L, Hgb 10.8 L, Hct 33.5 L, MCV 93.4, MCH 30.1, MCHC 32.3, RDW 14.4, Plt Count 235, MPV 7.9, Neut % (Auto) 59.3, Lymph % (Auto) 30.2, [place] % (Auto) 6.9, Eos % (Auto) 3.0, Baso % (Auto) 0.6, Neut # (Auto) 3.0, Lymph # (Auto) 1.5, [place] # (Auto) 0.4, Eos # (Auto) 0.2, Baso # (Auto) 0.0, Sodium 139, Potassium 3.8, Chloride 111 H, Carbon Dioxide 25, Anion Gap 6.8, BUN 12, Creatinine 0.50 L, Estimated Creat Clear 144, Estimated GFR 126, Est GFR ( Amer) 152 D, Glucose 102 H, Calcium 8.2 L, Magnesium 2.1, Total Bilirubin 0.6, AST 24, ALT 19, Alkaline Phosphatase 67, Total Protein 5.5 L, Albumin 3.0 L D, Globulin 2.5, Albumin/Globulin Ratio 1.2 I & O for Last 24 hours: Intake & Output 06/12/24 06/13/24 06/14/24 06/15/24 23:59 23:59 23:59 23:59 Intake Total 600 / 600 Output Total 0 / 0 0 / 0 Balance 0 / 240 600 / 600 Weight 159 lb 9 oz 167 lb 8 oz Constitutional Constitutional: no acute distress *Routine Respiratory Exam Respiratory: Present CTA bilaterally and symmetric chest movement *Routine Cardiovascular Exam Cardiovascular: Present RRR, Normal S1 and Normal S2 *Routine Abdominal Exam Abdominal: Present soft, normoactive bowel sounds and tenderness (Right lower abdominal pain) *Routine Extremities Exam Extremities: Present full ROM and normal capillary refill; Absent edema *Routine Skin Exam Skin: Present intact, dry and warm Detailed Neck Exam: Thyroids Thyroid: Absent bruit Meds Home Medications and Allergies Home Medications ?Medication ?Instructions ?Recorded ?Confirmed ?Type aspirin 81 mg chewable tablet 81 mg PO DAILY 04/25/18 06/14/24 History lansoprazole 30 mg capsule,delayed 30 mg PO DAILY Acid Reflux 04/25/18 06/14/24 History release levothyroxine 112 mcg tablet 112 mcg PO DAILY 04/13/22 06/14/24 History (Synthroid) levocetirizine 5 mg tablet (Xyzal) 5 mg PO DAILY #30 tabs 10/11/23 06/14/24 Rx atorvastatin 80 mg tablet 80 mg PO DAILY High cholesterol 02/27/24 06/14/24 Rx #90 tabs meclizine 25 mg tablet 25 mg PO BID PRN dizziness #20 tabs 03/29/24 06/14/24 Rx valsartan 160 mg tablet 320 mg PO DAILY 03/29/24 06/15/24 History evolocumab 140 mg/mL subcutaneous 140 mg SQ Q2W #2 mL 04/19/24 06/14/24 Rx pen injector (Repathmarie Morrisick) amlodipine 5 mg tablet 5 mg PO DAILY #30 tabs 05/07/24 06/14/24 Rx citalopram 20 mg tablet 20 mg PO DAILY #90 tabs 05/10/24 06/14/24 Rx clopidogrel 75 mg tablet (Plavix) 75 mg PO DAILY 30 days #30 tabs 06/07/24 06/14/24 Rx clotrimazole-betamethasone 1 1 applic topical BID 06/14/24 06/15/24 History %-0.05 % topical cream metoprolol succinate 50 mg 50 mg PO DAILY 06/14/24 06/14/24 History tablet,extended release 24 hr sitagliptin phosphate 100 mg 100 mg PO DAILYDM 06/14/24 06/14/24 History tablet (Januvia) tizanidine 4 mg tablet 4 mg PO TIDP PRN Muscle Pain 06/15/24 06/15/24 History New Prescriptions to Start Prescriptions: Allergies Allergy/AdvReac Type Severity Reaction Status Date / Time No Known Allergies Allergy Verified 06/14/24 10:50 Assessment and Plan *Assessment and plan (1) History of coronary artery stent placement: Status: Chronic Category: Surgical Code(s): Z95.5 - Presence of coronary angioplasty implant and graft (2) S/P CABG x 3: Status: Chronic Category: Surgical Code(s): Z95.1 - Presence of aortocoronary bypass graft (3) Retroperitoneal bleed: Status: Acute Category: Medical Code(s): R58 - Hemorrhage, not elsewhere classified Plan Retroperitoneal hematoma-stable Right-sided abdominal pain Noncontrasted CT and contrasted CT abdomen pelvis were both obtained yesterday which showed a stable retroperitoneal hematoma with no active bleeding noted Arterial ultrasound shows no evidence of pseudoaneurysm Hemoglobin on admission 12.3 repeat last night after fluids 10.9, repeat this morning 10.8. Continue to monitor. Continue DAPT therapy at this time due to recent stenting Pain control- defer to primary service Recommend continued monitoring with additional CT abdomen pelvis prior to dc home. Coronary artery disease CABG x 3 CABG in 02/2022 SVG/diagonal, BONILLA to LAD 06/06/2024-AZRA left main artery extending into the proximal LAD with 1 AZRA Continue DAPT therapy with aspirin and Plavix Continue atorvastatin 80 mg p.o. daily Continue Toprol-XL 50 mg p.o. daily Hypertension Continue metoprolol 50 mg p.o. daily, irbesartan 300 mg p.o. daily and amlodipine 5 mg p.o. daily Hyperlipidemia LDL goal less than 55, continue statin CV summary 06/15/2024: Patient remains stable this morning. Continues to complain of right-sided abdominal pain. CTA abdomen pelvis shows a stable retroperitoneal hematoma. Cardiology recommends patient remain inpatient for pain control and continued monitoring of H&H with repeat CT abdomen pelvis prior to discharge. If patient goes home over the weekend please have patient follow-up in cardiology clinic on Tuesday for reevaluation and continue below listed cardiac meds. Cardiac meds: Aspirin 81 mg p.o. daily Plavix 75 mg p.o. daily Atorvastatin 80 mg p.o. daily Toprol XL 50 mg p.o. daily Irbesartan 300 mg p.o. daily Amlodipine 5 mg p.o. daily
[2024-06-15 12:00] VITALS: PULSE 85
[2024-06-15 15:00] LABS: POC Glucose,Bedside 117 (70-110)
--- NOTE | 2024-06-15 15:04 | EXP.ACUTE.PN ---
Subjective *Date: 06/15/24 *Time: 15:04 Interval history: Patient still having some right-sided pain. Feeling better however. No active signs of bleeding. No shortness of breath. No chest pain or nausea or vomiting. Medical Exam Vital signs and Labs for Last 24 Hours: Vital Signs Temp Pulse Pulse Resp BP BP Pulse Ox 06/15/24 13:00 06/15/24 12:00 85 06/15/24 10:49 06/15/24 09:00 06/15/24 08:00 80 06/15/24 08:00 06/15/24 08:00 98 F 82 22 129/75 94 L 06/15/24 06:33 06/15/24 05:00 06/15/24 04:00 97.9 F 77 18 121/68 95 06/15/24 04:00 70 06/15/24 03:00 06/15/24 01:00 06/15/24 00:00 80 06/15/24 00:00 98.1 F 81 18 131/75 96 06/14/24 23:00 06/14/24 21:00 06/14/24 20:00 98.8 F 87 16 129/68 96 06/14/24 20:00 06/14/24 20:00 90 06/14/24 19:27 90 06/14/24 18:28 06/14/24 18:21 06/14/24 17:18 97.5 F L 86 20 139/73 97 06/14/24 17:00 98.0 F 87 16 141/83 H O2 Del Method 06/15/24 13:00 Room Air 06/15/24 12:00 06/15/24 10:49 Room Air 06/15/24 09:00 Room Air 06/15/24 08:00 06/15/24 08:00 Room Air 06/15/24 08:00 Room Air 06/15/24 06:33 Room Air 06/15/24 05:00 Room Air 06/15/24 04:00 Room Air 06/15/24 04:00 06/15/24 03:00 Room Air 06/15/24 01:00 Room Air 06/15/24 00:00 06/15/24 00:00 Room Air 06/14/24 23:00 Room Air 06/14/24 21:00 Room Air 06/14/24 20:00 Room Air 06/14/24 20:00 Room Air 06/14/24 20:00 06/14/24 19:27 06/14/24 18:28 Room Air 06/14/24 18:21 Room Air 06/14/24 17:18 Room Air 06/14/24 17:00 Room Air Intake and Output 06/14/24 06/15/24 06/15/24 23:59 07:59 15:59 Intake Total 240 / 960 720 / 960 Output Total 0 / 0 0 / 0 Balance 0 / 240 240 / 960 720 / 960 Intake: Intake, Oral Amount 240 / 960 720 / 960 Output: Output, Urine Amount 0 / 0 0 / 0 Other: Number of Voids 0 Number of Unmeasured Voids 1 1 Weight 72.376 kg 75.977 kg Patient Weight 06/15/24 23:59 Weight 75.977 kg Laboratory Results - last 24 hr 06/14/24 13:35: Hemoglobin A1c 6.8 H, TSH 0.83 06/14/24 21:15: POC Glucose 117 H 06/14/24 22:53: Hgb 10.9 L D, Hct 32.9 L 06/15/24 05:17: WBC 5.1 D, RBC 3.59 L, Hgb 10.8 L, Hct 33.5 L, MCV 93.4, MCH 30.1, MCHC 32.3, RDW 14.4, Plt Count 235, MPV 7.9, Neut % (Auto) 59.3, Lymph % (Auto) 30.2, Roberts % (Auto) 6.9, Eos % (Auto) 3.0, Baso % (Auto) 0.6, Neut # (Auto) 3.0, Lymph # (Auto) 1.5, Roberts # (Auto) 0.4, Eos # (Auto) 0.2, Baso # (Auto) 0.0, Sodium 139, Potassium 3.8, Chloride 111 H, Carbon Dioxide 25, Anion Gap 6.8, BUN 12, Creatinine 0.50 L, Estimated Creat Clear 144, Estimated GFR 126, Est GFR ( Amer) 152 D, Glucose 102 H, Calcium 8.2 L, Magnesium 2.1, Total Bilirubin 0.6, AST 24, ALT 19, Alkaline Phosphatase 67, Total Protein 5.5 L, Albumin 3.0 L D, Globulin 2.5, Albumin/Globulin Ratio 1.2 I & O for Labs for Last 24 Hours: Intake & Output 06/12/24 06/13/24 06/14/24 06/15/24 23:59 23:59 23:59 23:59 Intake Total 960 / 960 Output Total 0 / 0 0 / 0 Balance 0 / 240 960 / 960 Weight 72.376 kg 75.977 kg Constitutional: Present no acute distress, average body habitus and cooperative Head: Present atraumatic and normocephalic Respiratory: Present normal respiratory effort; Absent rhonchi, wheezes or crackles Cardiac: Present Reg Rate and Rhythm GI: Present soft, tenderness (right sided) and normal bowel sounds; Absent distention Extremities: Present normal inspection and full ROM Skin: Present intact; Absent erythema Neuro: Present Grossly Intact and moves all extremities Assessment and Plan *Assessment and plan (1) Retroperitoneal bleed: Status: Acute Category: Medical Code(s): R58 - Hemorrhage, not elsewhere classified (2) Postoperative abdominal pain: Status: Acute Category: Medical Code(s): R10.9 - Unspecified abdominal pain; G89.18 - Other acute postprocedural pain (3) S/P CABG x 3: Status: Chronic Category: Surgical Code(s): Z95.1 - Presence of aortocoronary bypass graft (4) HLD (hyperlipidemia): Status: Chronic Qualifiers: Hyperlipidemia type: mixed hyperlipidemia Qualified Code(s): E78.2 - Mixed hyperlipidemia Category: Medical Code(s): E78.5 - Hyperlipidemia, unspecified (5) HTN (hypertension): Status: Chronic Qualifiers: Hypertension type: primary hypertension Qualified Code(s): I10 - Essential (primary) hypertension Category: Medical Code(s): I10 - Essential (primary) hypertension (6) Diabetes mellitus type 2 in nonobese: Status: Chronic Category: Medical Code(s): E11.9 - Type 2 diabetes mellitus without complications (7) Hypothyroid: Status: Acute Category: Medical Code(s): E03.9 - Hypothyroidism, unspecified (8) Anemia: Status: Acute Category: Medical Code(s): D64.9 - Anemia, unspecified Plan 58-year-old female who presented to cardiology clinic due to persistent abdominal pain. Had a recent heart cath on 06/[address] obtained showing retroperitoneal hematoma. Sent to the ER for evaluation. Hemoglobin 12.5, imaging with CTA showing no active extravasation. Discussed case with ER physician, request admission for serial H&H and monitoring overnight along with pain control. I agreed to admit for further management. Appears stable this morning. Continues to require monitoring. Serial labs ordered. Cardiology evaluating. Problems addressed as follows: Retroperitoneal hematoma CAD History of CABG -Hemoglobin 12.3. 12.5 on 06/09. Hemoglobin level this morning of 10.8. Comparable to level last night. Appears to have had delusional component after IV fluids yesterday. Repeat H&H this evening at 6 PM, repeat CBC, CMP, magnesium ordered for the morning. -Cardiology evaluated today. Discussed case with cardiology, recommend serial H&H overnight. Consider repeat CT in the morning prior to going home. No other significant changes at this time. Patient remained stable.ms overnight. Will obtain right femoral ultrasound to evaluate for pseudoaneurysm - Continue dual antiplatelet therapy with aspirin 81 mg daily and Plavix 75 mg daily -Hold anticoagulation given DAPT therapy and potential for bleeding with over blood -Continue metoprolol 50 mg succinate daily and valsartan 160 mg daily for hypertension, blood pressure acceptable at this time at 139/73. States she did not take her medications today -Femoral artery ultrasound with no appreciable aneurysm. Chronic conditions: Stable Hypothyroid: Continue levothyroxine 112 mcg daily, TSH pending Diabetes: A1c 6.8, sliding scale insulin w/ Fingersticks ACHS, Januvia 100 mg daily Continue citalopram 20 mg daily for mood Continue Lipitor 80 mg daily for hyperlipidemia Full code Cardiac diet Holding anticoagulation in the setting of retroperitoneal bleed, already on DAPT therapy
[2024-06-15 16:00] VITALS: BP 160/80; PULSE 85; PULSE 90; RESP 18; O2SAT 100
[2024-06-15] MEDS: ACETAMINOPHEN 325MG TAB 650 MG PO (18:10)
[2024-06-15 18:39] LABS: Hematocrit 33.8 % (37.0-47.0)
[2024-06-15 20:00] VITALS: BP 142/76; PULSE 100; PULSE 92; RESP 16; TEMP 36.9; O2SAT 97
[2024-06-15] MEDS: PANTOPRAZOLE 40MG TABLET 40 MG PO (21:26)
[2024-06-15] MEDS: METOPROLOL SUCCINATE XL 50MG TABLET 50 MG PO (21:26)
[2024-06-15] MEDS: CITALOPRAM 20MG TABLET 20 MG PO (21:27)
[2024-06-15] MEDS: ATORVASTATIN 40MG TABLET 80 MG PO (21:27)
[2024-06-16] VITALS: BP 127/73; PULSE 70; PULSE 76; RESP 16; TEMP 36.8; O2SAT 97
[2024-06-16 04:00] VITALS: BP 123/66; PULSE 70; RESP 16; TEMP 36.7; O2SAT 97; BMI 29.2
[2024-06-16] MEDS: LEVOTHYROXINE 112MCG (0.112MG) TAB 112 MCG PO (06:19)
[2024-06-16] MEDS: SITAGLIPTIN 50MG TABLET 100 MG PO (06:19)
[2024-06-16 07:35] LABS: Basophils % 0.3 % (0.1-2.0); Eosinophils # 0.2 K/mm3 (0.0-0.4); Eosinophils % 3.3 % (0.1-12.0); Hematocrit 34.6 % (37.0-47.0); Hemoglobin 11.4 g/dL (12.2-16.2); Lymphocytes # 1.4 K/mm3 (0.7-4.5); Lymphocytes % 26.8 % (10-50); Mean Corpuscular Hemoglobin 30.2 pg (27.0-31.2); Mean Corpuscular Volume 91.6 fl (81-99); Mean Platelet Volume 8.1 fl (7.4-10.4); Monocytes # 0.4 K/mm3 (0.1-1.0); Monocytes % 7.4 % (1.7-9.3); Neutrophils # 3.3 K/mm3 (1.8-7.8); Neutrophils % 62.1 % (37.0-80.0); Platelet Count 285 K/mm3 (142-424); Red Blood Count 3.78 M/mm3 (4.20-5.40); Red Cell Distribution Width 14.2 % (11.5-17.5); White Blood Count 5.4 K/mm3 (4.8-10.8)
[2024-06-16 07:38] LABS: Chloride 109 mmol/L (98-107); Sodium 140 mmol/L (136-145)
[2024-06-16 07:39] VITALS: BP 118/68; PULSE 77; RESP 17; O2SAT 96
[2024-06-16 07:41] LABS: Blood Urea Nitrogen 14 mg/dl (7-17); Carbon Dioxide 27 mmol/L (22.0-30.0); Creatinine Clearance Estimated 101 mL/min (50-200); Estimated Glomerular Filt Rate 85 ml/min (>60); GFR (African American) 103 ML/MIN (>60)
[2024-06-16 07:42] LABS: Calcium 8.4 mg/dl (8.4-10.2); Glucose 98 mg/dl (74-100); Magnesium 2.1 mg/dl (1.6-2.3)
[2024-06-16 08:00] VITALS: PULSE 80
--- NOTE | 2024-06-16 08:01 | EXP.DC.SUM ---
General Admission date:: 06/14/24 Discharge date: 06/16/24 HPI HPI HPI: Ms. Dickerson is a 58-year-old female with history of CABG x 3. She presented for elective heart cath last week on 06/07. Femoral approach was used. Developed some slight groin pain over the days following. Pain progressed to lower abdominal pain on the right side. States it felt like she had muscle pain in her lower rib. Tender to palpation on the right side. Denies any nausea, vomiting, diarrhea, trauma. No active signs of bleeding. Informed her primary care who recommended CT but was unable to get scheduled until 2 weeks from now. Presented to cardiology today for follow-up. CT of her abdomen was obtained showing concern for retroperitoneal bleed. Patient was sent to the ER for further evaluation. CT with contrast obtained showing no active extravasation. Hemoglobin prior to her surgery of 13.9 on 06/07. Hemoglobin 12.5 on 06/09. 12.3 today in the ER. Appears to be stable. Patient has been tolerating her aspirin and Plavix and taking them daily as prescribed. Stable on room air. Given stability on imaging of retroperitoneal hematoma and hemoglobin, will admit patient for serial H&H and monitoring for any bleeding. Additionally having significant pain. Discussed case with ER physician, request admission. On arrival to the floor, patient is alert and oriented x 4. In no acute distress. On room air. Hospital Course Hospital Course Hospital Course: 58-year-old female who presented to cardiology clinic due to persistent abdominal pain. Had a recent heart cath on 06/[address] obtained showing retroperitoneal hematoma. Sent to the ER for evaluation. Hemoglobin 12.5, imaging with CTA showing no active extravasation. Discussed case with ER physician, request admission for serial H&H and monitoring overnight along with pain control. I agreed to admit for further management. Patient remained stable during hospitalization. Had drop in hemoglobin after IV fluids, consistent with dilutional effect. Hemoglobin continued to increase on serial labs. Hemoglobin 11.4 on morning of discharge. Given stability, no active signs of bleeding, stable to discharge home with outpatient follow-up with cardiology next week. Problems addressed as follows: Retroperitoneal hematoma CAD History of CABG -Hemoglobin 12.3 on admission. 12.5 on 06/09. After IV fluids, hemoglobin dropped to 10.8. Increased to 11.4 on morning of discharge. Appeared to have a dilutional component from IV fluids at time of admission. No active signs of bleeding. Ultrasound showing no pseudoaneurysm, CTA of abdomen with no active extravasation, given stability of hemoglobin, repeat imaging not obtained. No clinical indication at this time. Cardiology consulted and assisted with care. Held dual antiplatelet therapy during admission, resumed at discharge. Continue metoprolol succinate 50 mg daily, valsartan 160 mg daily for hypertension. Blood pressure controlled during admission. Close follow-up with cardiology next week. Chronic conditions: Stable Hypothyroid: Continue levothyroxine 112 mcg daily, TSH pending Diabetes: A1c 6.8, sliding scale insulin w/ Fingersticks ACHS, Januvia 100 mg daily Continue citalopram 20 mg daily for mood Continue Lipitor 80 mg daily for hyperlipidemia Exam Data for Last 24 hours Vital signs and Labs for Last 24 Hours: Temp Pulse Resp BP Pulse Ox O2 Del Method 98.0 F 77 17 118/68 96 Room Air 06/16/24 04:00 06/16/24 07:39 06/16/24 07:39 06/16/24 07:39 06/16/24 07:39 06/16/24 07:39 Laboratory Results - last 24 hr 06/14/24 21:15: POC Glucose 117 H 06/15/24 18:20: Hgb 11.0 L, Hct 33.8 L 06/16/24 06:40: WBC 5.4, RBC 3.78 L, Hgb 11.4 L, Hct 34.6 L, MCV 91.6, MCH 30.2, MCHC 33.0, RDW 14.2, Plt Count 285, MPV 8.1, Neut % (Auto) 62.1, Lymph % (Auto) 26.8, Mineral % (Auto) 7.4, Eos % (Auto) 3.3, Baso % (Auto) 0.3, Neut # (Auto) 3.3, Lymph # (Auto) 1.4, Mineral # (Auto) 0.4, Eos # (Auto) 0.2, Baso # (Auto) 0.0, Sodium 140, Potassium 4.0, Chloride 109 H, Carbon Dioxide 27, Anion Gap 8.0, BUN 14, Creatinine 0.70 D, Estimated Creat Clear 101, Estimated GFR 85, Est GFR ( Amer) 103 D, Glucose 98, Calcium 8.4, Magnesium 2.1 I & O for Last 24 hours: Intake & Output 06/13/24 06/14/24 06/15/24 06/16/24 23:59 23:59 23:59 23:59 Intake Total 1560 / 1560 420 / 420 Output Total 0 / 0 0 / 0 0 / 0 Balance 0 / 240 1560 / 1560 420 / 420 Weight 72.376 kg 75.977 kg 74.979 kg Constitutional Constitutional: no acute distress and cooperative *Routine HEENT Exam Head: Present normocephalic Eye: Present EOMI and PERRL ENT: Present mucous membranes moist *Routine Neck Exam Neck: Present supple; Absent lymphadenopathy *Routine Respiratory Exam Respiratory: Present CTA bilaterally; Absent rhonchi, wheezes or crackles *Routine Cardiovascular Exam Cardiovascular: Present RRR *Routine Abdominal Exam Abdominal: Present soft, normoactive bowel sounds and tenderness (Right side of abdomen. No rebound) *Routine Rectal Exam Patient deferred: visual exam *Routine Exam Comments: Right groin with small ecchymoses, no significant hematoma or thrill over femoral artery *Routine Extremities Exam Extremities: Absent cyanosis, clubbing or edema *Routine Skin Exam Skin: Present warm; Absent rash *Routine Neurological Exam Neurological: Present alert, oriented X3 and moving all extremities; Absent altered mental status Results Data Completed and Pending Labs on day of discharge: Labs from last 24 hours 06/16/24 06/15/24 06/14/24 06:40 18:20 21:15 WBC 5.4 RBC 3.78 L Hgb 11.4 L 11.0 L Hct 34.6 L 33.8 L MCV 91.6 MCH 30.2 MCHC 33.0 RDW 14.2 Plt Count 285 MPV 8.1 Neut % (Auto) 62.1 Lymph % (Auto) 26.8 Mineral % (Auto) 7.4 Eos % (Auto) 3.3 Baso % (Auto) 0.3 Neut # (Auto) 3.3 Lymph # (Auto) 1.4 Mineral # (Auto) 0.4 Eos # (Auto) 0.2 Baso # (Auto) 0.0 Sodium 140 Potassium 4.0 Chloride 109 H Carbon Dioxide 27 Anion Gap 8.0 BUN 14 Creatinine 0.70 D Estimated Creat Clear 101 Estimated GFR 85 Est GFR ( Amer) 103 D Glucose 98 POC Glucose 117 H Calcium 8.4 Magnesium 2.1 DS: Diagnosis Discharge Diagnosis (1) Retroperitoneal bleed: Status: Acute Code(s): R58 - Hemorrhage, not elsewhere classified (2) Postoperative abdominal pain: Status: Acute Code(s): R10.9 - Unspecified abdominal pain; G89.18 - Other acute postprocedural pain (3) S/P CABG x 3: Status: Chronic Code(s): Z95.1 - Presence of aortocoronary bypass graft (4) HLD (hyperlipidemia): Status: Chronic Code(s): E78.5 - Hyperlipidemia, unspecified Qualifiers: Hyperlipidemia type: mixed hyperlipidemia Qualified Code(s): E78.2 - Mixed hyperlipidemia (5) HTN (hypertension): Status: Chronic Code(s): I10 - Essential (primary) hypertension Qualifiers: Hypertension type: primary hypertension Qualified Code(s): I10 - Essential (primary) hypertension (6) Diabetes mellitus type 2 in nonobese: Status: Chronic Code(s): E11.9 - Type 2 diabetes mellitus without complications (7) Hypothyroid: Status: Acute Code(s): E03.9 - Hypothyroidism, unspecified (8) Anemia: Status: Acute Code(s): D64.9 - Anemia, unspecified Meds Home Medications and Allergies Home Medications ?Medication ?Instructions ?Recorded ?Confirmed ?Type aspirin 81 mg chewable tablet 81 mg PO DAILY 04/25/18 06/14/24 History lansoprazole 30 mg capsule,delayed 30 mg PO DAILY Acid Reflux 04/25/18 06/14/24 History release levothyroxine 112 mcg tablet 112 mcg PO DAILY 04/13/22 06/14/24 History (Synthroid) levocetirizine 5 mg tablet (Xyzal) 5 mg PO DAILY #30 tabs 10/11/23 06/14/24 Rx atorvastatin 80 mg tablet 80 mg PO DAILY High cholesterol 02/27/24 06/14/24 Rx #90 tabs meclizine 25 mg tablet 25 mg PO BID PRN dizziness #20 tabs 03/29/24 06/14/24 Rx valsartan 160 mg tablet 320 mg PO DAILY 03/29/24 06/15/24 History evolocumab 140 mg/mL subcutaneous 140 mg SQ Q2W #2 mL 04/19/24 06/14/24 Rx pen injector (erikamarie Arturoneli) amlodipine 5 mg tablet 5 mg PO DAILY #30 tabs 05/07/24 06/14/24 Rx citalopram 20 mg tablet 20 mg PO DAILY #90 tabs 05/10/24 06/14/24 Rx clopidogrel 75 mg tablet (Plavix) 75 mg PO DAILY 30 days #30 tabs 06/07/24 06/14/24 Rx clotrimazole-betamethasone 1 1 applic topical BID 06/14/24 06/15/24 History %-0.05 % topical cream sitagliptin phosphate 100 mg 100 mg PO DAILYDM 06/14/24 06/14/24 History tablet (Januvia) tizanidine 4 mg tablet 4 mg PO TIDP PRN Muscle Pain 06/15/24 06/15/24 History acetaminophen 325 mg tablet 650 mg (2 x 325 mg) PO Q6HP PRN 06/16/24 Rx Fever Or Mild Pain (1-3) 10 days #0 tabs hydrocodone 5 mg-acetaminophen 325 1 tab PO Q6HP PRN Mild To Moderate 06/16/24 Rx mg tablet Pain (1-6) #11 tabs metoprolol succinate 50 mg 50 mg PO HS #30 tabs 06/16/24 06/14/24 Rx tablet,extended release 24 hr New Prescriptions to Start Prescriptions: hydrocodone-acetaminophen Serjio Naik Allergies Allergy/AdvReac Type Severity Reaction Status Date / Time No Known Allergies Allergy Verified 06/14/24 10:50 Discharge Plan Disposition Patient Disposition: Home, Self-Care Condition: Fair Follow up Plan Follow up with: Leif Faulkner [Primary Care Provider] - 06/22/24 10:00 am Daniel Aparicio PA [Physician Dry Pan Feeder] - 06/19/24 11:30 am Prescriptions/Medication Reconciliation: New acetaminophen 325 mg Tablet 650 mg PO Q6HP PRN (Reason: Fever Or Mild Pain (1-3)) 10 Days Qty: 0 0RF Rx Instructions: OTC hydrocodone-acetaminophen 5-325 mg Tablet 1 tab PO Q6HP PRN (Reason: Mild To Moderate Pain (1-6)) Qty: 11 0RF Continued levothyroxine [Synthroid] 112 mcg tablet 112 mcg PO DAILY valsartan 160 mg tablet 320 mg PO DAILY levocetirizine [Xyzal] 5 mg tablet 5 mg PO DAILY Qty: 30 2RF Repatha SureClick 140 mg/mL pen injector 140 mg SQ Q2W Qty: 2 11RF meclizine 25 mg tablet 25 mg PO BID PRN (Reason: dizziness) Qty: 20 0RF Rx Instructions: May take half a tablet twice daily as needed for dizziness clotrimazole-betamethasone 1-0.05 % cream 1 applic topical BID Patient Comments: APPLY 1 GRAM ON THE SKIN TWICE DAILY Januvia 100 mg tablet 100 mg PO DAILYDM Patient Comments: TAKE 1 TABLET BY MOUTH DAILY atorvastatin 80 mg tablet 80 mg PO DAILY Qty: 90 3RF amlodipine 5 mg tablet 5 mg PO DAILY Qty: 30 3RF citalopram 20 mg tablet 20 mg PO DAILY Qty: 90 1RF lansoprazole 30 MG capsule,delayed release(DR/EC) 30 mg PO DAILY Patient Comments: TAKE ONE CAPSULE EVERY DAY aspirin 81 MG tablet,chewable 81 mg PO DAILY clopidogrel [Plavix] 75 mg Tablet 75 mg PO DAILY 30 Days Qty: 30 6RF tizanidine 4 mg tablet 4 mg PO TIDP PRN (Reason: Muscle Pain) Patient Comments: TAKE 1 TABLET BY MOUTH THREE TIMES DAILY NEEDED FOR MUSCLE PAIN Changed metoprolol succinate 50 mg tablet extended release 24 hr 50 mg PO HS Qty: 30 0RF Patient Comments: TAKE 1 TABLET BY MOUTH DAILY Problem Reconciliation Problems Reviewed?: Yes Patient Discharge Instructions ACTIVITY: Continue current activity, Ambulate as tolerated and No heavy lifting DIET: continue same diet Patient Instructions: DI for Abdominal Pain-Adult, DI for Hematoma (Bruise) Print Language: Setswana Providers Primary Care Provider: Leif Faulknerit Provider: Serjio Naik Attending Provider: Serjio Naik
[2024-06-16] MEDS: ASPIRIN 81MG CHEWABLE TABLET 81 MG PO (09:22)
[2024-06-16] MEDS: IRBESARTAN 300MG TABLET 300 MG PO (09:22)
[2024-06-16] MEDS: CLOPIDOGREL 75MG TAB 75 MG PO (09:22)
--- NOTE | 2024-06-19 15:45 | CARE MANAGER ---
Called and spoke with patient regarding recent discharge. Patient stated that she is doing well, has already seen her PCP, and had no concerns at time of call.
== END 2024-06-16 12:15 | disposition home or self-care (01) ==
LOC: ER 16:45 → 2ND 17:05
PROVIDERS: Emergency Medicine; Admitting Provider Internal Medicine Adolescent Medicine; Emergency Provider Emergency Medicine; PCP Family Medicine; Visit Provider Internal Medicine Adolescent Medicine
DX: K68.3 Retroperitoneal hematoma (principal); R10.9 Unspecified abdominal pain; G89.18 Other acute postprocedural pain; E03.9 Hypothyroidism, unspecified; E78.5 Hyperlipidemia, unspecified; D64.9 Anemia, unspecified; E11.9 Type 2 diabetes mellitus without complications; Z95.5 Presence of coronary angioplasty implant and graft; I25.10 Atherosclerotic heart disease of native coronary artery without angina pectoris; Z79.899 Other long term (current) drug therapy; I10 Essential (primary) hypertension; Z79.02 Long term (current) use of antithrombotics/antiplatelets; Z95.1 Presence of aortocoronary bypass graft; Z87.891 Personal history of nicotine dependence
CPT/HCPCS: 36415; 74174; 80048; 80050; 80053; 82962; 83036; 83735; 84443; 85014; 85018; 85025; 85610; 85730; 93005; 93926; 99285; G0378; J7120; Q9967

== ENCOUNTER 2024-06-19 12:09 | Outpatient (CLI) | payer BC, SELFPAY ==
[2024-06-19 12:25] LABS: Basophils % 0.5 % (0.1-2.0); Eosinophils # 0.2 K/mm3 (0.0-0.4); Eosinophils % 3.6 % (0.1-12.0); Hemoglobin 11.7 g/dL (12.2-16.2); Lymphocytes # 1.5 K/mm3 (0.7-4.5); Mean Corpuscular HGB Conc 32.5 g/dL (31.8-35.4); Mean Corpuscular Volume 92.3 fl (81-99); Mean Platelet Volume 7.8 fl (7.4-10.4); Monocytes # 0.4 K/mm3 (0.1-1.0); Monocytes % 6.1 % (1.7-9.3); Neutrophils # 3.9 K/mm3 (1.8-7.8); Neutrophils % 64.8 % (37.0-80.0); Platelet Count 353 K/mm3 (142-424); Red Cell Distribution Width 14.1 % (11.5-17.5); White Blood Count 6.1 K/mm3 (4.8-10.8)
[2024-06-19 13:15] LABS: Anion Gap 11.5 mEq/L (5-15); Blood Urea Nitrogen 15 mg/dl (7-17); Calcium 8.8 mg/dl (8.4-10.2); Carbon Dioxide 26 mmol/L (22.0-30.0); Chloride 108 mmol/L (98-107); Estimated Glomerular Filt Rate 85 ml/min (>60); GFR (African American) 103 ML/MIN (>60); Glucose 106 mg/dl (74-100); Potassium 4.5 mmoL/L (3.5-5.1); Sodium 141 mmol/L (136-145)
== END 2024-06-19 23:59 | disposition home or self-care (01) ==
LOC: LAB 12:10
PROVIDERS: PCP Family Medicine; Visit Provider Physician Assistant
DX: E78.2 Mixed hyperlipidemia (principal); R10.9 Unspecified abdominal pain; G89.18 Other acute postprocedural pain; I25.10 Atherosclerotic heart disease of native coronary artery without angina pectoris; Z95.1 Presence of aortocoronary bypass graft; E11.9 Type 2 diabetes mellitus without complications; I10 Essential (primary) hypertension; R94.31 Abnormal electrocardiogram [ECG] [EKG]; Z95.5 Presence of coronary angioplasty implant and graft
CPT/HCPCS: 36415; 80048; 85025

== ENCOUNTER 2024-07-04 11:58 | Outpatient (CLI) | payer BC, SELFPAY ==
[2024-07-04 12:14] LABS: Basophils # 0.1 K/mm3 (0-0.2); Basophils % 0.9 % (0.1-2.0); Eosinophils # 0.1 K/mm3 (0.0-0.4); Eosinophils % 2.3 % (0.1-12.0); Hematocrit 43.1 % (37.0-47.0); Hemoglobin 13.3 g/dL (12.2-16.2); Lymphocytes # 1.4 K/mm3 (0.7-4.5); Lymphocytes % 27.4 % (10-50); Mean Corpuscular HGB Conc 30.8 g/dL (31.8-35.4); Mean Corpuscular Hemoglobin 29.3 pg (27.0-31.2); Mean Corpuscular Volume 95.1 fl (81-99); Mean Platelet Volume 8.3 fl (7.4-10.4); Monocytes # 0.4 K/mm3 (0.1-1.0); Monocytes % 7.3 % (1.7-9.3); Neutrophils # 3.2 K/mm3 (1.8-7.8); Neutrophils % 62.1 % (37.0-80.0); Platelet Count 233 K/mm3 (142-424); Red Blood Count 4.53 M/mm3 (4.20-5.40); Red Cell Distribution Width 14.6 % (11.5-17.5); White Blood Count 5.1 K/mm3 (4.8-10.8)
[2024-07-04 12:28] LABS: Albumin Level 3.7 g/dl (3.5-5.0)
[2024-07-04 12:30] LABS: Bilirubin,Unconjugated 0.3 mg/dL (0.0-1.1)
[2024-07-04 12:31] LABS: Alanine Aminotransferase 30 U/L (12-78); Alkaline Phosphatase 83 U/L (38-126); Aspartate Amino Transferase 31 U/L (14-36); Bilirubin,Direct 0.2 mg/dl (0.0-0.4); Bilirubin,Indirect 0.4 mg/dL (0.0-0.9); Bilirubin,Total 0.6 mg/dl (0.2-1.3); Chol/HDL Ratio 1.5 (1-3.5); Cholesterol 54 mg/dl (140-200); HDL Cholesterol 37 mg/dl (40-60); Total Protein,Serum 5.8 g/dl (6.3-8.2); Triglycerides 52 mg/dl (30-150); VLDL Cholesterol 10 mg/dL (0-40)
[2024-07-04 12:42] LABS: Direct LDL Cholesterol < 30.00 mg/dL (100-129)
== END 2024-07-04 23:59 | disposition home or self-care (01) ==
LOC: LAB 11:59
PROVIDERS: PCP Family Medicine; Visit Provider Physician Assistant
DX: E11.9 Type 2 diabetes mellitus without complications (principal); I25.10 Atherosclerotic heart disease of native coronary artery without angina pectoris; Z95.1 Presence of aortocoronary bypass graft; Z95.5 Presence of coronary angioplasty implant and graft; R94.31 Abnormal electrocardiogram [ECG] [EKG]; E78.5 Hyperlipidemia, unspecified; I10 Essential (primary) hypertension; D64.9 Anemia, unspecified; I11.9 Hypertensive heart disease without heart failure
CPT/HCPCS: 36415; 80061; 80076; 85025

== ENCOUNTER 2024-08-16 16:39 | Outpatient (CLI) | payer BC, SELFPAY | END 2024-08-16 23:59 | disposition home or self-care (01) | LOC: RT 16:40 | PROVIDERS: PCP Family Medicine; Visit Provider Physician Assistant | DX: R00.0 Tachycardia, unspecified (principal) | CPT/HCPCS: 93225; 93227 ==

== ENCOUNTER 2025-04-25 06:08 | Outpatient (CLI) | payer BC, SELFPAY ==
--- NOTE | 2025-04-25 | CA_ITS ---
APPROVED REPORT Exam: Exercise Treadmill Technologist: Carrie Moreno Ht: 5 ft 2 in Wt: 168 lbs BSA: 1.78 m2 Medical History Medications: amlodipine, aspirin, atorvastatin, citalopram, clopidogrel, clotrimazole-betamethasone, nystatin-triamicinolone, empagliflozin, repatha, glimepiride, lansoprazole, xyzal, synthroid, meclizine, metoprolol succinate ER, nitroglycerin, topiramate, valsartan Stress Test Details Test: Exercise stress testing was performed using a Brennan protocol. HR Resting HR: 68 bpm Max Heart Rate (APMHR): 159.501421 bpm Max HR Achieved: 108 bpm Target HR (85% APMHR): 135.520754 bpm % of APMHR: 67.92 Recovery HR: 77 bpm BP Resting BP: 170.0/64.0 mmHg Max BP: 210.0/84.0 mmHg Recovery BP: 185.0/70.0 mmHg ECG Resting ECG: SR. No isch or ectopy Clinical Highest Stage Achieved: II Stress ECG Conclusion Inject 5:32. Symptoms: None. Arrhythmias/Ectopy: None. ST-T Changes: Inferolateral ST changes noted in recovery. Electronically signed by : Susie Garibay MD 04/25/2025 14:19:10
--- NOTE | 2025-04-25 06:30 | NM_ITS ---
APPROVED REPORT Exam: Nuclear Stress Test Indication: cabg,,cad Patient Location: Outpatient Stress Tech: Carrie Francis MS Tech:APPLE Fang RT(R)(N) Ht: 5 ft 2 in Wt: 162 lbs Bra Size: 38c HR: 68 bpm BP: 170/64 mmHg BSA: 1.75 m2 TID: 1.49 BMI: 29.6 History: cabg,,cad Procedure: Patient exercised on Brennan protocol 6:36 minutes and sec, resting heart rate 68 bpm, resting blood pressure 170/64 mmHg, with exercise maximum heart rate achived was 137 bpm which is 86 % of the maximum predicted heart rate and blood pressure was 180/88 mmHg. Test was stopped due to fatigue. Patient denied any complaint of chest pain. Patient has exercise capacity, achieved 7.1 METs of workload on treadmill, the blood pressure response to exercise was . Cardiac Stress and Resting SPECT Images: Cardiac Stress and Resting SPECT images were obtained using technetium 99m Myoview 30.5 mCi stress and 10.37 mCi at rest. Resting and stress imaging in supine and prone positions demonstrate no evidence of fixed or reversible perfusion defects. There is increase in transient ischemic dilatation ratio (TID 1.49), which may be suggestive of possible multivessel disease or balanced ischemia. Gated imaging demonstrates normal global and regional LV systolic function. LVEF is calculated at 54%. Conclusion: No evidence of fixed or reversible perfusion defects. There is increase in transient ischemic dilatation ratio (TID 1.49), which may be suggestive of possible multivessel disease or balanced ischemia. Gated imaging demonstrates normal global and regional LV systolic function. LVEF is calculated at 54%. Electronically signed by : Susie Garibay MD 04/25/2025 13:17:56
--- OUTSIDE RECORDS SUMMARY | 2025-04-25 07:37 | XMS_ITS | Encounter Summary ---
Author Organization Healthcare Address [address] [place] [address] Care Team Providers Care Payroll Director Name Role Phone Leif Faulkner MD Primary Care Provider [phone] Esvin Goyal MD Unavailable [phone] Reason for Referral * Consultation (Routine) - Closed Specialty Diagnoses / Procedures Referred By Contac t Referred To Contact Dentist / Pain Medicine Diagnoses Obstructive sleep apnea (adult) (pediatric) Tigist Lanza MD [address] [facility] [address] [place] [address] Phone: tel: fax: Dasha Tang, DDS [address] [facility] [address] [place] [address] Phone: tel: fax: Referral ID Status Reason Start Date Expiration Date Visits Re quested Visits Authorized [id number] Closed 03/29/2024 09/28/2025 1 1 Encounter Details Date Type Department Care Team (Late st Contact Info) Description 03/29/2024 [facility] [address] [place] [address] Tigist Lanza MD [address] [facility] [address] [place] [address] Obstructive sleep apnea (adult) (pediatric) (Primary Dx) Social History Tobacco Use Types Packs/Day Years Used Date Smoking Tobacco: Former Smokeless Tobacco: Never Alcohol Use Standard Drinks/Week Comments No 0 (1 standard drink = 0.6 oz pur e alcohol) Comments No Sex and Gender Information Value Date Recorded Sex Assigned at Not on file Legal Sex Female 7:37 PM EDT Gender Identity Not on file Sexual Orientation Not on file documented as of this encounter Plan of Treatment Scheduled Referrals Name Type Priority Associated Diagnoses Order Schedule Ambulatory Referral to Orofacial Pain Outpatient Referral Routine Obstructive sleep apnea (adult) (pediatric) Expected: 03/29/2024 (Approximate), Expires: 09/29/2025 documented as of this encounter Visit Diagnoses Diagnosis Obstructive sleep apnea (adult) (pediatric)- Primary documented in this encounter Additional Health Concerns Assessment Noted Time A fall risk assessment has been complete d for the patient 05/20/2022 11:11 AM EDT documented as of this encounter Care Teams Payroll Director Relationship Specialty Start Date End Date Leif Faulkner MD [address] [place] [id number] PCP - General 02/25/22 Esvin Goyal MD [address] [place] [id number] Referring Physician 02/25/22 documented as of this encounter
--- OUTSIDE RECORDS SUMMARY | 2025-04-25 07:37 | XMS_ITS | Data Portability ---
Author Organization [facility] [place] [facility] Address [address] [facility] [address] [place] [address] Care Team Providers Care Gliding Pilot Instructor Name Role Phone TIMOTHY ROBERTO Rolling Up Machine Operator Assessment No assessment recorded. Plan of Treatment Reminders Order Date Submit Date Provider Last Modified By Organization Details Last Modified Time Details Appointments FOLLOW UP DAK 2024 02:20P M DR. COLON Not available Not available Not available Lab None recorded. Referral None recorded. Procedures None recorded. Surgeries None recorded. Imaging None recorded. Medication Orders triamcino lone acetonide 0.1 % topical cream [address] [id number], [address] [place], [id number], 03/16/2024 17:35:09 Patient TargetsNo targets recorded. Patient InstructionsNo instructions recorded. Reason for Referral None Reported. Medical Equipment None Reported. Allergies No known drug allergies Medications Name Sig Start Date Stop Date Status Note LastModified by Organization Details LastModified Time metformin 500 mg tablet Two times a day active Frequency : bid;Alt Frequency : with food;Medi cation Descripti on: metformin ; Dosage:1; Route:ora l; refills:0 Not Available Not Available Not Available Lipitor 80 mg tablet Every night at bedtime active Frequency : qhs;Medic ation Descripti on: atorvasta tin; Dosage:1; Route:ora l; refills:0 Not Available Not Available Not Available Synthroid 125 mcg tablet Daily active Frequency : daily;Med ication Descripti on: levothyro xine; Dosage:1; Route:ora l; refills:0 Not Available Not Available Not Available triamcinol one acetonide 0.1 % topical cream APPLY A THIN LAYER TO THE AFFECTED AREA(S) BY TOPICAL ROUTE 2 TIMES PER DAY 2023 active Not Available Not Available Not Avai lable Prevacid 30 mg capsule,de layed release Daily active Frequency : daily;Med ication Descripti on: lansopraz ole; Dosage:1; Route:ora l; refills:0 Not Available Not Available Not Available carbamazep ine 200 mg tablet Three times a day 2013 active does nottake Not Available Not Available Not Available lorazepam 0.5 mg tablet active Medicatio n Descripti on: lorazepam ; Dosage:1; Route:ora l; refills:0 Not Available Not Available Not Available sucralfate (bulk) powder active Medicatio n Descripti on: sucralfat e; Route:ora l; refills:0 Not Available Not Available Not Available aspirin 81 mg tablet Daily active Frequency : daily;Med ication Descripti on: aspirin; Dosage:1; Route:ora l; refills:0 Not Available Not Available Not Available lisinopril 2.5 mg tablet Bedtime active Frequency : hs;Medica tion Descripti on: lisinopri l; Dosage:1; Route:ora l; refills:0 Not Available Not Available Not Available metoprolol tartrate active Medicatio n Descripti on: metoprolo l; Route:ora l; refills:0 Not Available Not Available Not Available Vitals None Recorded Social History Question Answer Notes LastModified by Organizat ion Details LastModified Time Tobacco Smoking Status Never Smoker Margarita Hubbard [facility] 03/16/2024 13:06:42 What Was The Date Of Your Most Recent Tobacco Screening? 03/16/2024 Information not available 03/16/2024 Sex: Female Functional Status Question Answer Note LastModified by Organization D etails LastModified Time What is your level of alcohol consumption? None Information not available 03/16/2024 Mental Status None recorded. Family History Relationship Description Onset Age of this Age Resolved Age Notes LastModified by Organization Details LastModified Time Father No current problems or disability [email or web address] Not available 01/2024 13:06:36 Mother No current problems or disability [email or web address] Not available 01/2024 13:06:36 Medical History No medical history recorded. Gynecological HistoryNo gynecological history recorded. Obstetrics History GPAL:G 0 P 0 0 0 0 Past Encounters Encounter ID Performer Location Encounter Start Date Encounter Closed Date Diagnosis/Indication Diagnosis SNOMED-CT Code Diagnosis ICD10 Code Diagnosis Note [id number] [facility] [address] 02/14/2017 16:17:49 02/14/2017 16:17:49 [id number] TIMOTHY COLON MD [place] [address] [place] [address] 03/16/2024 12:58:49 03/16/2024 13:42:33 Multiple benign melanocytic nevi 377709864 D22.5 D18.01 L82.1 L81.4 Benign appearing lesions present at today's visit.Sun protection and self examinatio ns discussed. Generalize d essential telangiectasia 698405342 I78.1 The nature of the diagnosis was discussed. No tx needed at this time. 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 No tx needed at this time. Tinea pedis [id number] B35. 3 B35.4 B35.1 declines oral med for nailCont ketoconazo le crPt to call if flares/wor sens. Stasis dermatitis 219111 05 I87.2 triamcinol one cream bid prn Health Concerns Section Related Observation LastModified by Organization Detai ls LastModified Time None Recorded Concern Status LastModified by Organization Details LastModified Time None Recorded Advance Directives Directive None Recorded Payers Insurance Date Sequence Insurance Name Policy Number Policy Schulz Covered Member ID Schulz Member ID Guarantor Name 03/16/2024 1 [place] [id number] [facility] [id number] [facility] Notes Date Note Type Note Provider Name and Address Organization Details Recorded Time 03/16/2024 text/html FSBEannualno hxreports: spots on backtinea pedis/ tinea corporis- L legtx: TACreports: still there, will come and go TIMOTHY COLON MD [address] [place], [address], [facility] 03/16/2024 17:35:28 OBGyn Episode No OBEpisode recorded.
--- OUTSIDE RECORDS SUMMARY | 2025-04-25 07:37 | XMS_ITS | Clinical Summary ---
Author Organization Healthcare Address [address] [place] [address] Care Team Providers Care Briquette Molder Name Role Phone Leif Faulkner MD Primary Care Provider Esvin Goyal MD Unavailable [phone] Allergies No known active allergies Medications dicyclomine (Bentyl) 10 MG capsule Take 10 mg by mouth 4 (four) times a day if needed. Active lansoprazole (Prevacid) [address] capsule Take 30 mg by mouth 1 (one) time each day. Do not crush or chew. Active levothyroxine (Synthroid, Levoxyl) 112 MCG tablet Take 112 mcg by mouth 1 (one) time each day before breakfast. Active SITagliptin (Januvia) 100 MG tablet Take 100 mg by mouth 1 (one) time each day. Active aspirin 81 MG EC tablet Take 1 tablet (81 mg total) by mouth 1 (one) time each day. 30 tablet 3 03/02/2022 Active docusate sodium 100 MG capsule Take 100 mg by mouth 2 (two) times a day if needed for constipation. 20 capsule 03/02/2022 Active metoprolol succinate XL (Toprol-XL) 50 MG 24 hr tablet Take 50 mg by mouth 1 (one) time each day. Do not crush or chew. Active Repatha Pushtronex System 420 MG/3.5ML solution cartridge INJECT 420 MG UNDER THE SKIN ONCE MONTHLY DIRECTED 05/10/2022 Active Active Problems Problem Noted Date Diagnosed Date Overweight (BMI 25.0-29.9) 03/25/2022 CAD, multiple vessel 02/25/2022 HLD (hyperlipidemia) 02/25/2022 HTN (hypertension) 02/25/2022 Type 2 diabetes mellitus 02/25/2022 Hypothyroidism 02/25/2022 GERD (gastroesophageal reflux disease) Resolved Problems Problem Noted Date Diagnosed Date Resolved Date ACS (acute coronary syndrome) 02/24/2022 02/25/2022 Immunizations Immunization Administration Dates Next Due Zoster, live 03/03/2016 Family History Medical History Relation Name Comments Heart attack Brother 1 Stroke Brother 1 Hyperlipidemia Brother 2 Hypertension Brother 3 Hyperlipidemia Mother Hypertension Mother Thyroid disease Mother Heart attack Other Relation Name Status Comments Brother 1 Brother 2 Brother 3 Mother Other Social History Tobacco Use Types Packs/Day Years Used Date Smoking Tobacco: Former Smokeless Tobacco: Never Alcohol Use Standard Drinks/Week Comments No 0 (1 standard drink = 0.6 oz pur e alcohol) Comments No Sex and Gender Information Value Date Recorded Sex Assigned at Not on file Legal Sex Female 7:37 PM EDT Gender Identity Not on file Sexual Orientation Not on file Last Filed Vital Signs Vital Sign Reading Time Taken Comments Blood Pressure 142/86 04/20/2024 11:24 AM EDT Pulse 60 04/20/2024 11:24 AM EDT Temperature 36.2 C (97.2 F) 04/20/2024 11:24 AM EDT Respiratory Rate 14 03/31/2022 12:20 PM EDT Oxygen Saturation 96% 04/20/2024 11:24 AM EDT Inhaled Oxygen Concentration - - Weight 74.1 kg (163 lb 6.4 oz) 04/20/2024 11:24 AM EDT Height 160 cm (5' 3 ) 04/20/2024 11:24 AM EDT Body Mass Index 28.95 04/20/2024 11:24 AM EDT Plan of Treatment Health Maintenance Due Date Last Done Comments Dental Oral Exam 1963 Dental Prophylaxis 1963 Dental X-Ray: Bitewings 1963 Dental X-Ray: Full Mouth 1963 [facility]-Depression Screening 1963 [facility]-HIV Screening 1963 [facility]-Hepatitis C Screening 1963 [facility]-/Child/Adol SDOH Screenings 1963 Diabetes: Dental Exam 1973 [facility]- SDOH Screenings 1981 [facility]-Adult SDOH Screenings 1981 [facility]-DTaP,Tdap,and Td Vaccines (1 - Tdap) 1982 [facility]-Pneumococcal Vaccine: 50+ Years (1 of 2 - PCV) 1982 [facility]-Pap Smear 1984 [facility]-Cervical Cancer Screening 1993 [facility]-HPV/Cotest 1993 CT Colonography 2008 Colonoscopy 2008 FIT-DNA 2008 FIT 2008 FOBT 2008 Sigmoidoscopy 2008 [facility]-Colorectal Cancer Screening 2008 [facility]-Zoster Vaccines (2 of 3) 04/28/2016 03/03/2016 [facility]-Diabetes: Hemoglobin A1C 08/25/2022 02/25/2022 [id number] Vaccine ( season) 2024 03/20/2021, 02/17/2021 [facility]-Influenza Vaccine (Season Ended) 2025 [facility]-Breast Cancer Screening 04/05/202603/15, 04/05/2024, 02/11/2023, Additional history exists [facility]-RSV Vaccine: 60+ Years or (1 - 1-dose 75+ series) 2038 [facility]-Obesity Intervention Completed 04/20/2024 HPV Vaccines Aged Out No longer eligi ble based on patient's age to complete this topic [facility]-HIB Vaccines Aged Out No longer e ligible based on patient's age to complete this topic [facility]-Hepatitis A Vaccines Aged Out No longer eligible based on patient's age to complete this topic [facility]-IPV Vaccines Aged Out No longer e ligible based on patient's age to complete this topic [facility]-Rotavirus Vaccines Aged Out No lo nger eligible based on patient's age to complete this topic Procedures Procedure Name Priority Date/Time Associated Diagnosis Comments HEMOGLOBIN A1C Routine 02/25/2022 1:52 AM EDT from Last 3 Months or Most Recently Relevant to Health Maintenance Results * (ABNORMAL) Hemoglobin A1c (02/25/2022 1:52 AM EDT) Hemoglobin A1c 6.5(H) <5.7 % 02/25/2022 2:26 AM EDT [facility] Blood Venous blood specimen / Unknown Venipuncture / Unknown 02/25/2022 1:52 AM EDT 02/25/2022 2:18 AM EDT Narrative [facility] - 02/25/2022 2:26 AM EDT HA1C Interpretive Data: Diagnosis of Diabetes: Diabetic > or = 6.5% Pre-diabetic 5.7 to 6.4% Non-diabetic < or = 5.6% Glycemic Targets for Type I and Type II Diabetics: Non- Adults <7.0% Adults <6.0% Children and Adolescents <7.5% Source: [place] [employer]. Standards of medical care in diabetes,2017. Diabetes Care.2017:40 (suppl 1):S1-S135. HbA1c assay performed by an ion-exchange chromatography method that is certified traceable to the DCCT. [facility] BLOOD ORDERABLES Final Re sult [facility] [address] [place] [address] from Last 3 Months or Most Recently Relevant to [place] [address] [facility] Advance Directives * Full Code (Latest Code Status on File) Date Activated Date Inactivated Comments 02/26/2022 4:25 PM 03/02/2022 4:51 PM Question Answer Comments Patient has decision-making capacity? Yes * Full Code Date Activated Date Inactivated Comments 02/24/2022 11:59 PM 02/26/2022 4:25 PM Question Answer Comments Patient has decision-making capacity? Yes Care Teams Briquette Molder Relationship Specialty Start Date End Date Leif Faulkner MD [address] [place] [address] PCP - General 02/25/22 Esvin Goyal MD [address] [place] [address] Referring Physician 02/25/22
[2025-04-25] MEDS: SODIUM CHLORIDE 0.9% 10ML SYR (RAD ONLY) 10 ML IV ×2 (08:56)
[2025-04-25] MEDS: ISOTOPE MYOVIEW (PER STUDY) 1 DOSE IV (08:56)
== END 2025-04-25 23:59 | disposition home or self-care (01) ==
LOC: RAD 06:08
PROVIDERS: PCP Family Medicine; Visit Provider Physician Assistant
DX: I25.119 Atherosclerotic heart disease of native coronary artery with unspecified angina pectoris (principal); Z95.1 Presence of aortocoronary bypass graft; Z95.5 Presence of coronary angioplasty implant and graft; E78.2 Mixed hyperlipidemia; I10 Essential (primary) hypertension; E11.9 Type 2 diabetes mellitus without complications
CPT/HCPCS: 78452; 93017; 93018; A9502

== ENCOUNTER 2025-05-09 07:47 | Day surgery (SDC) | payer BC, SELFPAY ==
[2025-05-09] VITALS (13 sets, daily range): BP systolic 104–169; BP diastolic 54–88; PULSE 62–84; RESP 16–18; TEMP 36.9; O2SAT 94–98; BMI 30.7
--- NOTE | 2025-05-09 07:08 | IR_ITS ---
APPROVED REPORT Patient Location: Outpatient PROCEDURES Left heart catheterization Left ventriculogram Selective coronary angiogram Selective engagement of the saphenous vein graft which supplies the first obtuse marginal artery and then skips to the terminal obtuse marginal artery Selective engagement of the saphenous vein graft to diagonal artery INDICATION Coronary artery disease, History of coronary bypass surgery, Abnormal Myoview Informed consent was obtained prior to the procedure. COMPLICATIONS none Estimated Blood Loss: less than 10ml TECHNIQUE One percent lidocaine used to anesthetize the right anterior aspect of the wrist. The right radial artery was accessed via the Seldinger technique. A 6 Slovenian sheath was placed in the right radial artery. 2.5 mg of Verapamil, 800 mcg of nitroglycerin, 1mg Lidocaine and 5000 U Heparin were given through the arterial sheath. The JL3 catheter was also used to perform left heart catheterization, left ventriculogram and selective coronary angiogram. The same catheter was used to perform selective engagement of each of the saphenous vein grafts. The BONILLA was noted to be occluded from previous angiography therefore was not engage. at the end of the procedure the sheath was removed good hemostasis was achieved using Traclet band, patient was transferred to the postop holding area in stable condition. ANGIOGRAPHIC RESULTS The left main artery Has a stent in its ostial segment which extends throughout into the LAD. The stent is widely patent The left anterior descending artery Has ostial eccentric 20% stenosis with remaining stent widely patent with excellent distal transitioning. There are additional 2030% stenoses in the LAD The circumflex artery Gives rise to a small first obtuse marginal artery which has competitive flow from a graft. The second obtuse marginal artery is occluded The right coronary artery Nondominant and patent The ROBERTO ventriculogram reveals Preserved at 60% The left ventricular end-diastolic pressure 10 mmHg BONILLA is known to be occluded from previous angiography Saphenous vein graft to the first obtuse marginal artery is widely patent. The graft then skips to a terminal obtuse marginal artery which is widely patent. Saphenous vein graft to diagonal artery widely patent IMPRESSION Coronary disease as described above Preserved ejection fraction Normal LVEDP PLAN 1. Continue medical management with aggressive risk factor modification Electronically signed by : Esvin Goyal MD 05/09/2025 10:27:19
[2025-05-09 08:16] LABS: Basophils % 0.3 % (0.1-2.0); Eosinophils # 0.1 Kmm3 (0.0-0.4); Eosinophils % 1.8 % (0.1-12.0); Hematocrit 44.8 % (37.0-47.0); Hemoglobin 14.5 g/dL (12.2-16.2); Immature Granulocytes # 0.05 10^3uL; Immature Granulocytes % 0.7 %; Lymphocytes # 1.5 K/mm3 (0.7-4.5); Mean Corpuscular HGB Conc 32.4 g/dL (31.8-35.4); Mean Corpuscular Hemoglobin 29.6 pg (27.0-31.2); Mean Corpuscular Volume 91.4 fl (81-99); Mean Platelet Volume 9.8 fl (7.4-10.4); Monocytes # 0.6 K/mm3 (0.1-1.0); Monocytes % 8.2 % (1.7-9.3); Neutrophils # 4.6 K/mm3 (1.8-7.8); Nucleated Red Blood Cells # 0 10^3/uL; Nucleated Red Blood Cells % 0 %; Platelet Count 207 K/mm3 (142-424); Red Cell Distribution Width 13.7 % (11.5-17.5); Red Cell Distribution Width-SD 45.8 fL; White Blood Count 6.8 K/mm3 (4.8-10.8)
[2025-05-09 08:20] LABS: Chloride 107 mmol/L (98-107)
[2025-05-09 08:21] LABS: Potassium 4.7 mmoL/L (3.5-5.1); Sodium 140 mmol/L (136-145)
[2025-05-09 08:23] LABS: Blood Urea Nitrogen 19 mg/dl (7-17); Creatinine Clearance Estimated 71 mL/min (50-200); Estimated Glomerular Filt Rate 102 ml/min (>60); GFR (African American) 123 ML/MIN (>60)
[2025-05-09 08:24] LABS: Anion Gap 13.7 mEq/L (5-15); Calcium 8.6 mg/dl (8.4-10.2); Carbon Dioxide 24 mmol/L (22.0-30.0); Glucose 132 mg/dl (74-100)
[2025-05-09] MEDS: HEPARIN 1,000 UNITS/500ML NS (CATH LAB) 3000 UNIT IV (09:49)
[2025-05-09] MEDS: HEPARIN 1,000 UNITS/ML 10ML VIAL (CATH LAB) 5000 UNIT IV (09:49)
[2025-05-09] MEDS: LIDOCAINE 1% 10ML MDV 10 ML IJ (09:50)
[2025-05-09] MEDS: diphenhydrAMINE 50MG/ML VIAL 50 MG IV (09:50)
[2025-05-09] MEDS: 0.9 % SODIUM CHLORIDE 500 ML 25 ML IV (09:50)
[2025-05-09] MEDS: VERAPAMIL 2.5MG/ML 2ML VIAL 2.5 MG IV (09:50)
[2025-05-09] MEDS: NITROGLYCERIN 800MCG/8ML SYR (CATH LAB) 800 MCG IA (09:50)
[2025-05-09] MEDS: MIDAZOLAM HCL 1MG/ML 5ML VIAL 1 MG IV (09:51)
[2025-05-09] MEDS: FENTANYL 100MCG/2ML VIAL 50 MCG IV (09:51)
--- NOTE | 2025-05-09 10:47 | SUR.PHASEII ---
After pt family finished speaking with doctor ponce, family had questions for me and asked if she can be admitted (family did not disclose this concern with dr ponce). Educated family that I would have to speak to the doctor about admitting the patient. states because of the insurance she has to be admitted because of what happened last time she got this done Educated again this would need to be discussed with the doctor. Notified BHimes of situation, states she would speak to the MD, case management and family of the patient. Pt family updated and asked to remain in waiting room, no needs stated.
--- NOTE | 2025-05-09 11:00 | SUR.PHASEII ---
Mari speaking to patient family
[2025-05-09] MEDS: IOPAMIDOL-370 (76%);100ML BOTTLE 60 ML IV (11:20)
== END 2025-05-09 14:10 | disposition home or self-care (01) ==
PROVIDERS: PCP Family Medicine; Visit Provider Internal Medicine
PROC: 4A023N7 Measurement of Cardiac Sampling and Pressure, Left Heart, Percutaneous Approach (ICD-10-PCS; CPT 93452; principal; 2025-05-09 08:30)
DX: I25.10 Atherosclerotic heart disease of native coronary artery without angina pectoris (principal); R94.39 Abnormal result of other cardiovascular function study; R93.1 Abnormal findings on diagnostic imaging of heart and coronary circulation; I10 Essential (primary) hypertension; E78.5 Hyperlipidemia, unspecified; Z79.82 Long term (current) use of aspirin; Z79.85 Long-term (current) use of injectable non-insulin antidiabetic drugs; Z79.890 Hormone replacement therapy; Z79.02 Long term (current) use of antithrombotics/antiplatelets; Z79.899 Other long term (current) drug therapy; Z87.891 Personal history of nicotine dependence; Z95.1 Presence of aortocoronary bypass graft; Z95.5 Presence of coronary angioplasty implant and graft
CPT/HCPCS: 93459; 80048; 85025; 99152; C1725; C1769; J1200; J1644; J2003; J3010; J7040; Q9967

== ENCOUNTER 2025-05-16 15:48 | Outpatient (CLI) | payer BC, SELFPAY ==
--- OUTSIDE RECORDS SUMMARY | 2025-05-16 15:51 | XMS_ITS | Clinical Summary ---
Author Organization Healthcare Address [address] [place] [address] Care Team Providers Care Program Attendant Name Role Phone Leif Faulkner MD Primary Care Provider [phone] Esvin Goyal MD Unavailable [phone] Allergies No known active allergies Medications dicyclomine [...] [facility]-HIV Screening 1963 [facility]-Hepatitis C Screening 1963 [facility]-Infant/Child/Adol SDOH Screenings 1963 Diabetes: Dental Exam 1973 [...] [facility]-Zoster Vaccines (2 of 3) 04/28/2016 03/03/2016 [id number] Vaccine (3 - Moderna risk series) 04/17/2021 03/20/2021, 02/17/2021 [facility]-Diabetes: Hemoglobin A1C 08/25/2022 02/25/2022 [facility]-RSV Vaccine: 60+ Years or (1 - Risk 60-74 years 1-dose series) 2023 [facility]-Influenza Vaccine (#1) 2025 [facility]-Breast Cancer Screening 04/05/202603/15, 04/05/2024, 02/11/2023, Additional history exists [facility]-Obesity Intervention Completed 04/20/2024 HPV Vaccines Aged [...] Adults <6.0% Children and Adolescents <7.5% Source: [place] [employer]. Standards of medical care in diabetes,2017. Diabetes Care.2017:40 (suppl 1):S1-S135. HbA1c assay performed by an ion-exchange chromatography method that is certified traceable to the DCCT. [facility] BLOOD ORDERABLES Final Re sult [facility] [address] [place] [phone] from Last 3 Months or Most Recently Relevant to Health Maintenance Insurance [employer] Advance Directives * Full Code (Latest Code Status on File) Date Activated Date Inactivated Comments 02/26/2022 4:25 PM 03/02/2022 4:51 PM Question Answer Comments Patient has decision-making capacity? Yes * Full Code Date Activated Date Inactivated Comments 02/24/2022 11:59 PM 02/26/2022 4:25 PM Question Answer Comments Patient has decision-making capacity? Yes Care Teams Program Attendant Relationship Specialty Start Date End Date Leif Faulkner MD [address] [place] [address] PCP - General 02/25/22 Esvin Goyal MD [address] [place] [address] Referring Physician 02/25/22
--- OUTSIDE RECORDS SUMMARY | 2025-05-16 15:51 | XMS_ITS | Encounter Summary ---
Author Organization Healthcare Address [address] [place] [address] Care Team Providers Care Cloth Bleaching Supervisor Name Role Phone Leif Faulkner MD Primary Care Provider [phone] Esvin Goyal MD Unavailable [phone] Reason for Referral * Consultation (Routine) - Closed Specialty Diagnoses / Procedures Referred By Contac t Referred To Contact Dentist / Pain Medicine Diagnoses Obstructive sleep apnea (adult) (pediatric) Tigist Lanza MD [address] [facility] [address] [place] [address] Phone: tel: fax: Dasha Tang, DDS [address] [facility] [address] [place] [address] Phone: tel: fax: Referral ID Status Reason Start Date Expiration Date Visits Re quested Visits Authorized [id number] Closed 03/29/2024 09/28/2025 1 1 Encounter Details Date Type Department Care Team (Late st Contact Info) Description 03/29/2024 [facility] [address] [place] [address] Tigist Lanza MD [address] [facility] [address] [place] [address] Obstructive sleep apnea (adult) (pediatric) [...] documented as of this encounter Care Teams Cloth Bleaching Supervisor Relationship Specialty Start Date End Date Leif Faulkner MD [address] [place] [id number] PCP - General 02/25/22 Esvin Goyal MD [address] [place] [address] Referring Physician 02/25/22 documented as of this encounter
--- NOTE | 2025-05-16 16:00 | CA_ITS ---
FINAL REPORT CLINICAL HISTORY: heart cath 05/09/25 with right radial access. Edema and pain right wrist pain with pain greater at night. She states her pain feels like she's being shocked. Most of pain is on the ulnar side of the wrist. FINDINGS: Spectral and Doppler waveform evaluations of the right wrist was performed. Spectral analysis was performed. There is no evidence of pseudoaneurysm at the site of the radial access. No fluid collection is identified. The vessel is patent. IMPRESSION: No evidence of pseudoaneurysm. Reviewed, Interpreted and Dictated by Nanda Irene MD Transcribed by Cristina Calix Authenticated and [facility]
== END 2025-05-16 23:59 | disposition home or self-care (01) ==
LOC: RT 15:49
PROVIDERS: PCP Family Medicine; Visit Provider Physician Assistant
DX: M79.601 Pain in right arm (principal); I25.10 Atherosclerotic heart disease of native coronary artery without angina pectoris; I10 Essential (primary) hypertension; R94.31 Abnormal electrocardiogram [ECG] [EKG]; R60.0 Localized edema
CPT/HCPCS: 93931

== ENCOUNTER 2025-10-17 15:22 | Outpatient (CLI) | payer BC, SELFPAY ==
--- NOTE | 2025-10-17 15:45 | XR_ITS ---
FINAL REPORT CLINICAL HISTORY: PAST SMOKER PRE-OP SHOULDER SURGERY FINDINGS: CHEST 2 VIEWS PA AND LATERAL The heart is normal in size. Single median sternotomy wires identified. The lungs are clear. There is no pneumothorax. IMPRESSION: No acute process. Reviewed, Interpreted and Dictated by Lawson Hilton MD Transcribed by Cristina Calix Authenticated and [facility]
[2025-10-17 15:51] LABS: Hematocrit 43.8 % (37.0-47.0); Hemoglobin 14.3 g/dL (12.2-16.2); Immature Granulocytes % 1.3 %; Mean Corpuscular HGB Conc 32.6 g/dL (31.8-35.4); Mean Corpuscular Hemoglobin 30.0 pg (27.0-31.2); Mean Corpuscular Volume 91.8 fl (81-99); Nucleated Red Blood Cells % 0 %; Platelet Count 198 K/mm3 (142-424); Red Blood Count 4.77 M/mm3 (4.20-5.40); Red Cell Distribution Width-SD 43.0 fL; White Blood Count 6.0 K/mm3 (4.8-10.8)
[2025-10-17 16:12] LABS: Alanine Aminotransferase 30 U/L (12-78); Albumin Level 4.3 g/dl (3.5-5.0); Albumin/Globulin Ratio 2.0 (1.1-1.8); Alkaline Phosphatase 101 U/L (38-126); Anion Gap 9.4 mEq/L (5-15); Aspartate Amino Transferase 29 U/L (14-36); Bilirubin,Total 0.6 mg/dl (0.2-1.3); Blood Urea Nitrogen 12 mg/dl (7-17); Calcium 8.9 mg/dl (8.4-10.2); Carbon Dioxide 25 mmol/L (22.0-30.0); Chloride 105 mmol/L (98-107); Creatinine,Serum 0.70 mg/dl (0.52-1.04); Estimated Glomerular Filt Rate 85 ml/min (>60); GFR (African American) 103 ML/MIN (>60); Globulin 2.1 g/dL (1.3-3.2); Glucose 119 mg/dl (74-100); Potassium 4.4 mmoL/L (3.5-5.1); Sodium 135 mmol/L (136-145); Total Protein,Serum 6.4 g/dl (6.3-8.2)
[2025-10-17 17:35] LABS: Amphetamine/Metha Screen,Urine Negative ng/ml (<1000)
[2025-10-17 17:36] LABS: Barbiturates Screen,Urine Negative ng/ml (<200); Benzodiazepines Screen,Urine Negative ng/ml (<200)
[2025-10-17 17:38] LABS: Methadone Screen,Urine Negative ng/ml (<300)
[2025-10-17 17:39] LABS: Opiate Screen,Urine Negative ng/ml (<300)
[2025-10-17 17:40] LABS: Phencyclidine Screen,Urine Negative ng/ml (<25)
[2025-10-17 17:46] LABS: Hemoglobin A1C 7.0 % (4.0-6.0)
[2025-10-17 23:15] LABS: MRSA DNA PCR Negative (Negative)
== END 2025-10-17 23:59 | disposition home or self-care (01) ==
LOC: RAD 15:23
PROVIDERS: PCP Family Medicine; Visit Provider Orthopaedic Surgery Adult Reconstructive Orthopaedic Surgery
DX: Z01.811 Encounter for preprocedural respiratory examination (principal); Z01.812 Encounter for preprocedural laboratory examination; Z87.891 Personal history of nicotine dependence
CPT/HCPCS: 36415; 71046; 80053; 80307; 83036; 85025; 87641